=== PATIENT | female | born 1940 | race Caucasian/White ===

== ENCOUNTER 2020-02-15 13:37 | Outpatient (CLI) | payer MEDICARE, MEDICAID, SELFPAY ==
--- NOTE | 2020-02-15 13:49 | USCV_ITS ---
Magy Hebert Age: 79 Gender: F : 1940 Exam Date: 02/15/2020 14:11 Ordering Phys: Quique Dumont MD Technologist: Heath Robertson [place] [facility] [place] RT LEG PAIN AND SWELLING HISTORY: Lower extremity swelling. PROCEDURES: Venous duplex imaging was performed in only the right lower extremity. The following venous structures were evaluated: common femoral vein, profunda vein, proximal portion of the greater saphenous vein, superficial femoral vein, and the popliteal vein. In addition, the posterior tibial and peroneal trunk were evaluated. On the right side, the common femoral, superficial femoral, profunda femoral, popliteal, posterior tibial, greater saphenous veins and the peroneal trunk were identified and interrogated in the standard fashion. These veins were found to be easily compressible with spontaneous blood flow. No evidence of insufficiency or thrombus noted. FINDINGS: Normal 2-D Doppler and augmentation and compressibility throughout the lower extremity venous structures. Additional imaging through the proximal calf veins also reveals no thrombus. Limited evaluation of the greater saphenous vein is patent with no thrombus.. CONCLUSIONS No evidence of right lower extremity DVT. Sukhi Roblero MD (Electronically Signed) Final Date: 15 February 2020 16:27 S
== END 2020-02-15 13:38 | disposition home or self-care (01) ==
LOC: RAD 13:43
PROVIDERS: PCP Family Medicine; Visit Provider Family Medicine
DX: M79.604 Pain in right leg (principal); M79.89 Other specified soft tissue disorders
CPT/HCPCS: 93971

== ENCOUNTER 2020-02-20 10:45 | Outpatient (CLI) | payer MEDICARE, MEDICAID, SELFPAY ==
--- NOTE | 2020-02-20 10:59 | US_ITS ---
WS: [id number] Complete ABDOMINAL ULTRASOUND HISTORY: EDEMA COMPARISON: None available. Liver: 14.7 cm in length. Liver is normal size and echogenicity with no mass or intrahepatic dilatati on. Gallbladder: Well distended gallbladder. There is increased soft tissue in the gallbladder neck. Nons hadowing soft tissue. There is no gallbladder wall thickening. Gallbladder wall thickness: 0.2 cm. Pancreas: Normal size and echogenicity. CBD: 0.2 cm. Right kidney: 9.1 cm x 4.4 cm x 3.9 cm. Multiple renal cysts associated with the RIGHT kidney. The l argest from the superior pole measures 5.3 x 2.1 x 3.6 cm. No solid mass or obstruction. Left kidney: 9.2 cm x 4.2 cm x 3.7 cm. Multiple cortical cysts. The largest cyst from the upper pole measures 4.0 x 2.9 x 3.8 cm. No solid mass. Spleen: Normal size and echogenicity. Abdominal aorta and IVC are within normal limits. No ascites. US/US abdomen complete* [id number] IMPRESSION: 1. Increased soft tissue in the gallbladder neck without shadowing. May be slu dge or neoplasm. Consider surgical evaluation or follow-up gallbladder ultrasou nd to evaluate for change in the soft tissue. 2. No cholelithiasis. 3. Bilateral renal cysts.
== END 2020-02-20 10:46 | disposition home or self-care (01) ==
LOC: US 10:55
PROVIDERS: PCP Family Medicine; Visit Provider Family Medicine
DX: R60.0 Localized edema (principal); N28.1 Cyst of kidney, acquired
CPT/HCPCS: 76700

== ENCOUNTER → 2020-03-31 14:29 | Outpatient (BNVA) | payer MEDICARE, MEDICAID, SELFPAY | PROVIDERS: PCP Family Medicine; Visit Provider Internal Medicine Cardiovascular Disease | DX: R06.02 Shortness of breath (principal); I50.33 Acute on chronic diastolic (congestive) heart failure; Z79.01 Long term (current) use of anticoagulants; N18.9 Chronic kidney disease, unspecified; I25.10 Atherosclerotic heart disease of native coronary artery without angina pectoris; E78.2 Mixed hyperlipidemia | CPT/HCPCS: 80048; 83880; 84443; 85025 ==

== ENCOUNTER → 2020-04-15 09:20 | Outpatient (BNVA) | payer MEDICARE, MEDICAID, SELFPAY | PROVIDERS: PCP Family Medicine; Visit Provider Internal Medicine Cardiovascular Disease | DX: R06.02 Shortness of breath (principal); I25.10 Atherosclerotic heart disease of native coronary artery without angina pectoris | CPT/HCPCS: 80048; 83880 ==

== ENCOUNTER 2020-05-02 09:34 | Outpatient (CLI) | payer MEDICARE, MEDICAID, SELFPAY ==
[2020-05-02 10:16] LABS: Basophils % 0.7 %; Eosinophils # 0.1 10^3/uL (0.0-0.8); Eosinophils % 0.9 %; Hematocrit 43.3 % (37.0-47.0); Hemoglobin 13.7 g/dL (11.5-15.3); Lymphocytes # 1.8 10^3/uL (0.8-4.8); Lymphocytes % 32.1 %; Mean Corpuscular HGB Conc 31.6 g/dL (30.0-36.0); Mean Corpuscular Hemoglobin 29.5 pg (28.0-34.0); Mean Corpuscular Volume 93.1 fL (81-99); Mean Platelet Volume 9.9 fL (7.4-10.4); Monocytes # 0.4 10^3/uL (0.2-0.9); Monocytes % 6.7 %; Neutrophils # 3.29 10^3/uL (1.8-7.7); Neutrophils % 59.2 %; Nucleated Red Blood Cells % 0 %; Platelet Count 154 10^3/cmm (130-400); Red Blood Count 4.65 10^6/uL (4.1-5.3); Red Cell Distribution Width 14.9 % (12.1-15.1); White Blood Count 5.6 10^3/uL (4.0-10.0)
[2020-05-02 10:36] LABS: INR 1.29 (0.8-1.2)
[2020-05-02 13:41] LABS: Anion Gap 16.5 (5-19); Blood Urea Nitrogen 41 mg/dL (8-23); Carbon Dioxide 27 mmol/L (22-29); Chloride 102 mmol/L (98-107); Glucose 105 mg/dL (65-115); Osmolality Calculated 302 mOsm/kg (285-295); Potassium 4.5 mmol/L (3.5-5.1); Sodium 141 mmol/L (136-145)
== END 2020-05-02 09:35 | disposition home or self-care (01) ==
PROVIDERS: PCP Family Medicine; Visit Provider Internal Medicine Cardiovascular Disease
DX: Z95.0 Presence of cardiac pacemaker (principal); R06.02 Shortness of breath; E78.2 Mixed hyperlipidemia; G62.9 Polyneuropathy, unspecified; I25.10 Atherosclerotic heart disease of native coronary artery without angina pectoris; Z01.812 Encounter for preprocedural laboratory examination
CPT/HCPCS: 36415; 80048; 85025; 85610; 87635

== ENCOUNTER 2020-05-05 09:23 | Observation (INO) | payer MEDICARE, MEDICAID, SELFPAY ==
[2020-05-02 12:21] VITALS: BMI 24.6
[2020-05-05] VITALS (10 sets, daily range): BP systolic 116–143; BP diastolic 64–70; PULSE 66–71; RESP 16–18; TEMP 36.5–36.9; O2SAT 94–100
--- NOTE | 2020-05-05 07:23 | P.HP_ITS ---
Providers/Chief Complaint Admitting Physician: AANHY jaime Primary Care Provider: Quique Dumont Jr, MD Chief Complaint: pacemaker generator change History of Present Illness Magy Hebert is a 79 year old female with a history of hypertension, atrial fibrillation and dyslipidemia, had a permanent pacer implantation for symptomatic bradycardia. She was found to be in BIA during routine pacemaker follow-up evaluation. She is here for an elective pacemaker revision. Review of Systems Narrative: CONSTITUTIONAL: No fever or chills. EYES: No blurring of vision or other visual disturbances lately. ENT: No hoarseness of voice, auditory disturbances or sore throat. CARDIOVASCULAR: As mentioned above. RESPIRATORY: No significant cough. GASTROINTESTINAL: No hematemesis or melena. GENITOURINARY: No dysuria or hematuria. INTEGUMENTARY: No skin rashes or history of skin cancer. NEURO: No transient ischemic attacks or amaurosis. PSYCHIATRIC: No history of psychosis or major depression. HEMATOLOGIC: No bleeding disorders or significant anemia. ENDOCRINE: No history of polyuria or polydipsia. MUSCULOSKELETAL: No recent joint pain or swelling. ALLERGY/IMMUNOLOGY: As mentioned above. Medications/Allergies Home Medications Medication Instructions Recorded Confirmed Last Taken Type alprazolam 0.25 mg tablet 0.25 mg PO TID PRN 09/25/19 05/05/20 Unknown History carvedilol 25 mg tablet 25 mg PO BID 09/25/19 05/05/20 05/05/20 04:30 History diltiazem HCl 240 mg capsule,24 240 mg PO DAILY 09/25/19 05/05/20 05/05/20 04:30 History hr,extended release gabapentin 300 mg capsule 300 mg PO DAILY 09/25/19 05/05/20 05/04/20 12:00 History isosorbide mononitrate 60 mg 60 mg PO DAILY 09/25/19 05/05/20 05/04/20 12:00 History tablet,extended release 24 hr lovastatin 40 mg tablet 80 mg PO DAILY tab 09/25/19 05/05/20 05/04/20 20:00 History multivitamin 1 tab PO DAILY 09/25/19 05/05/20 05/04/20 12:00 History nitroglycerin 0.4 mg sublingual 0.4 mg SUBLINGUAL Q5M PRN 09/25/19 05/05/20 Unknown History tablet potassium chloride 20 mEq 20 meq PO DAILY 09/25/19 05/05/20 05/04/20 08:00 History tablet,extended release quetiapine 25 mg tablet 25 mg PO DAILY 09/25/19 05/05/20 05/04/20 20:00 History tramadol 50 mg tablet 50 mg PO Q6H PRN 09/25/19 05/05/20 05/05/20 04:30 History warfarin 5 mg tablet 5 mg PO DAILY 09/25/19 05/05/20 04/29/20 12:00 History lisinopril 20 mg tablet 20 mg PO BID tab 03/31/20 05/05/20 05/05/20 04:30 History furosemide 40 mg tablet 40 mg PO DAILY #90 tab 04/01/20 05/05/20 05/04/20 08:00 Rx Allergies Allergy/AdvReac Type Severity Reaction Status Date / Time hydrocodone Allergy Unknown unknown Verified 05/05/20 06:47 Penicillins Allergy Unknown unknown Verified 05/05/20 06:47 shellfish derived Allergy Unknown unknown Verified 05/05/20 06:47 PFSH Acute PFSH: Medical History (Updated 05/05/20 @ 07:25 by Gaviota Jaime MD) Atrial fibrillation CAD (coronary artery disease) Hyperlipidemia Hypothyroid Pacemaker Peripheral neuropathy SOB (shortness of breath) Surgical History H/O: hysterectomy Family History Other CAD (coronary artery disease) Hyperlipidemia Hypertension Social History Smoking and tobacco status: never smoked Alcohol intake: never Vitals/I&O/Wt Last Vital Signs Temp 98.4 F 05/05/20 06:20 Pulse 66 05/05/20 06:20 Resp 16 05/05/20 06:20 BP 143/66 05/05/20 06:20 Pulse Ox 100 05/05/20 06:20 Physical Exam Narrative: EXAM NARRATIVE: GENERAL: The patient is alert and oriented times three. Not in any acute distress. HEENT: No significant pallor, icterus or lymphadenopathy. The pupils are symmetrical. Oral cavity: There are no mucous membrane lesions. Funduscopic examination: The disk margins appear to be sharp with no exudates or hemorrhages. NECK: Trachea appears to be central. No masses noted. No JVD or thyromegaly appreciated. No carotid bruit. RESPIRATORY: Chest is symmetrical. No intercostals muscle retraction or any accessory muscle activation. There is no chest wall tenderness. Breath sounds are heard bilaterally. No rales or rhonchi heard. No evidence of any consolidati on. BREASTS: Deferred. HEART: The heart sounds are normal. No S3 or S4. Short systolic murmur the left sternal border. No diastolic murmurs. ABDOMEN: No vessel pulsations or distention. No tenderness. No organomegaly appreciated. No abdominal bruit. Bowel sounds are normally heard. : Deferred. RECTAL: Deferred. LYMPHATIC: No lymphadenopathy noted in the neck or groin. EXTREMITIES: No edema or cyanosis MUSCULOSKELETAL: No acute joint deformities or swelling SKIN: There are no significant scars or skin rash noted. NEUROPSYCHIATRIC: The patient is alert and oriented x3. Very hard of hearing appears to be in a good mood. No tremors or rigidity noted. A&P Assessment and plan (1) Pacemaker at end of battery life: Patient requires a pacemaker revision. This was discussed with the patient and family in detail which they understood well and consented to proceed. The risk of bleeding, hematoma, vascular injury, , infection, and other concomitant complications were explained in detail. The patient and family understood this well and consented to proceed. Status: Acute (2) Hyperlipidemia: May continue on the current medications. Status: Acute Qualifiers: Hyperlipidemia type: mixed hyperlipidemia Qualified Code(s): E78.2 - Mixed hyperlipidemia (3) Atrial fibrillation: Patient is on long-term oral anticoagulation. on a.c. the Coumadin was held. Will be restarting it tomorrow. Status: Acute Qualifiers: Atrial fibrillation type: longstanding persistent Qualified Code(s): I48.11 - Longstanding persistent atrial fibrillation (4) CAD (coronary artery disease): Since the patient has no specific symptoms of coronary insufficiency, may not require any further investigations at this time. Advised to continue on the current medications. Importance of compliance to diet and exercise were discussed which the patient seems to understand well. Status: Acute Qualifiers: Coronary Disease-Associated Artery/Lesion type: [place] artery [place] vs. transplanted heart: [place] heart Associated angina: without angina Qualified Code(s): I25.10 - Atherosclerotic heart disease of [place] coronary artery without angina pectoris Additional A&P Information Patient will be admitted to the hospital after pacemaker for IV antibiotics. Attestations Medical Necessity Statement*: Patient requires an overnight stay for IV antibiotic Coding Level of Care Code Acute Technical Translator for g Fwd Diagnoses Pacemaker at end of battery life Z45.010 Hyperlipidemia E78.2 Hyperlipidemia type: mixed hyperlipidemia Atrial fibrillation I48.11 Atrial fibrillation type: longstanding persistent CAD (coronary artery disease) I25.10 Coronary Disease-Associated Artery/Lesion type: [place] artery [place] vs. transplanted heart: [place] heart Associated angina: without angina
--- NOTE | 2020-05-05 07:27 | W.PM.OPSUD ---
Surgery/Procedure H&P Update DATE OF PROCEDURE: May 05, 2020 DATE H&P PERFORMED: 05/05/20 PREOP DIAGNOSIS: Pacemaker BIA PRIMARY INDICATION FOR PROCEDURE: Pacemaker BIA PLANNED PROCEDURE: Operation Date: 05/05/20 07:00 Proposed Procedures p Pacemaker Generator Change 30092 Z45.010(Not Applicable) - Gaviota Jimenez MD PATIENT REASSESSED PRIOR TO SEDATION, WITH NO CHANGE NOTED: Yes PHYSICAL EXAM: alert, oriented x 3 and regular rate & rhythm AIRWAY EVAL/ANESTHESIA PLAN: normal airway, ASA III, Monitored Anesthesia, Local Anesthesia, Risks, benefits & alternatives of sedation and/or procedure discussed and Patient agrees to continue as planned
--- NOTE | 2020-05-05 08:27 | P.OP_ITS ---
Operative Report Date of procedure: May 05, 2020 Pre-op Diagnosis: Pacemaker BIA Procedure: PROCEDURE: PACEMAKER REVISION PREOPERATIVE DIAGNOSIS: Pacemaker elective replacement indication. POSTOPERATIVE DIAGNOSIS: Pacemaker elective replacement indication. ESTIMATED BLOOD LOSS: None COMPLICATIONS: None. BRIEF HISTORY: The patient is 79-year-old white female who had a permanent pacemaker implantation for atrial fibrillation/symptomatic bradycardia. The patient was found to have elective replacement indication, during routine office followup evaluation. For further management of patient's condition for the [symptomatic bradycardia], the patient required a pacemaker revision. The procedure was explained to the patient and her family in detail with the risks and benefits. The risks of bleeding, hematoma, vascular injury, infection and other concomitant complications were explained in detail, which the patient understood well and consented to proceed. PROCEDURES PERFORMED: 1. Explantation of the old pacemaker generator. 2. Implantation of the new generator. The patient brought to the Cardiac Product Manufacturing Professional. The left side of the neck and the subclavian area were cleaned and draped in a sterile fashion. 1% Xylocaine was used for local anesthetic agent. A 2 inch long incision was made just below the previous pacemaker scar. By sharp and blunt dissection, the pacemaker pocket was accessed. The old generator was delivered from the pocket. The generator was detached from the lead. The new Medtronic generator was attached to the lead. The pacemaker pocket was copiously irrigated with vancomycin solution. Complete hemostasis was achieved. The generator was placed in antibiotic pouch TYRX. Sponge counts were confirmed. The pacemaker pocket was closed in layers. Skin was approximated using 4-0 Vicryl. EXPLANTED DEVICE: Pacemaker Generator: Brand: [Sensia]SR. Model number: SR01. Serial number: [id number]. Date of implant: 08/02/2014 IMPLANTED DEVICES: Ventricular Lead: Date of implantation: 08/02/2014 Model number: [id number] Serial number: [id number] Make: [Medtronic]. Implanted Generator: Date of implantation : 05/05/2020 Brand: Azre XT SR MRI SureScan. Model number: [id number] Serial number: [id number] Make: [Medtronic] TYRX Pouch REF CMRM 6122 Lot# [id number] Stimulation Threshold: The ventricular sensing was 6.0 millivolts. Lead impedance was 418 and the pacing threshold was .75 volts at 0.5 milliseconds. The pacemaker was set for VVIR mode with an upper rate of 120 and a lower rate of [60]. A pressure dressing was applied over the pacemaker site. The patient was transferred back to medical floor in stable condition. Sponge counts were correct.
[2020-05-05] MEDS: quetiapine 25 mg Tablet PO (10:04)
[2020-05-05] MEDS: carvedilol 25 mg Tablet PO ×2 (10:04→17:31)
[2020-05-05] MEDS: FUROsemide 40 mg Tablet PO (10:04)
[2020-05-05] MEDS: gabapentin 300 mg Capsule PO (10:04)
[2020-05-05] MEDS: lisinopril 20 mg Tablet PO ×2 (10:04→17:31)
[2020-05-05] MEDS: isosorbide mononitrate ER 60 mg Tablet PO (10:04)
[2020-05-05] MEDS: potassium chloride ER 20 mEq Tablet PO (10:04)
[2020-05-05] MEDS: dilTIAZem ER (24HR) 240 mg Capsule PO (10:04)
[2020-05-05] MEDS: multivitamin therapeutic Tablet 1 TAB PO (10:04)
[2020-05-05] MEDS: atorvastatin 40 mg Tablet 20 MG PO (10:05)
[2020-05-05] MEDS: vancomycin 1,000 MG in sodium chloride 0.9% 250 ML 250 MG IV (21:15)
[2020-05-05] MEDS: sodium chloride 0.9% 1,000 ML 75 ML IV (21:19)
[2020-05-05] MEDS: TRAMadol 50 mg Tablet PO (23:51)
[2020-05-06] VITALS: BP 134/68; PULSE 69; RESP 20; TEMP 37.1; O2SAT 93
[2020-05-06 03:42] VITALS: BP 133/69; PULSE 69; RESP 24; TEMP 37.1; O2SAT 92
[2020-05-06 06:00] VITALS: PULSE 69
--- NOTE | 2020-05-06 06:00 | ECG_ITS ---
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 Measurements Intervals [place] Rate: 69 P: [place]: QRS: 130 QRSD: 191 T: -30 QT: 466 QTc: 502 Interpretive Statements ELECTRONIC VENTRICULAR PACEMAKER ABNORMAL RHYTHM ECG Compared to ECG 03/13/2016 15:05:13 Left-axis deviation no longer present Electronically Signed On 05-06-2020 21:43:10 EXECUTIVE MARKETING ASSISTANT by Gaviota Jimenez M.D. [email or web address] children's hospital medical [id number]
[2020-05-06] MEDS: dilTIAZem ER (24HR) 240 mg Capsule PO (08:31)
[2020-05-06] MEDS: isosorbide mononitrate ER 60 mg Tablet PO (08:31)
[2020-05-06] MEDS: lisinopril 20 mg Tablet PO (08:32)
[2020-05-06] MEDS: atorvastatin 40 mg Tablet 20 MG PO (08:32)
[2020-05-06] MEDS: gabapentin 300 mg Capsule PO (08:32)
[2020-05-06] MEDS: FUROsemide 40 mg Tablet PO (08:32)
[2020-05-06] MEDS: carvedilol 25 mg Tablet PO (08:32)
[2020-05-06] MEDS: quetiapine 25 mg Tablet PO (08:32)
[2020-05-06] MEDS: potassium chloride ER 20 mEq Tablet PO (08:32)
[2020-05-06] MEDS: multivitamin therapeutic Tablet 1 TAB PO (08:32)
[2020-05-06] MEDS: warfarin 5 mg Tablet PO (08:39)
[2020-05-06 08:40] VITALS: BP 156/66; PULSE 69; RESP 18; TEMP 36.4; O2SAT 97
--- NOTE | 2020-05-06 09:07 | PC.NURSE ---
assisted patient with getting dressed, removed iv and notified care nurse LYNN Pedersen
[2020-05-06 10:31] VITALS: BP 156/66; PULSE 69; RESP 18; TEMP 36.4; O2SAT 97
== END 2020-05-06 09:58 | disposition home or self-care (01) ==
LOC: MEDSURG 05-06 05:20
PROVIDERS: Admitting Provider Internal Medicine Cardiovascular Disease; PCP Family Medicine; Visit Provider Internal Medicine Cardiovascular Disease
DX: Z45.010 Encounter for checking and testing of cardiac pacemaker pulse generator [battery] (principal); E78.2 Mixed hyperlipidemia; I48.11 Longstanding persistent atrial fibrillation; I25.10 Atherosclerotic heart disease of native coronary artery without angina pectoris; Z79.01 Long term (current) use of anticoagulants; E78.5 Hyperlipidemia, unspecified; G62.9 Polyneuropathy, unspecified
CPT/HCPCS: 12345; 33213; 36415; 93005; 96361; 96365; 96367; 97110; 97166; 97535; C1769; C1786; G0378; J2250; J3010; J3370; J7030; J7050

== ENCOUNTER → 2020-07-02 12:00 | Outpatient (BNVA) | payer MEDICARE, MEDICAID, SELFPAY | PROVIDERS: PCP Family Medicine; Visit Provider Internal Medicine Cardiovascular Disease | DX: R06.02 Shortness of breath (principal); I50.33 Acute on chronic diastolic (congestive) heart failure; Z79.01 Long term (current) use of anticoagulants; N18.9 Chronic kidney disease, unspecified; I25.10 Atherosclerotic heart disease of native coronary artery without angina pectoris; E78.2 Mixed hyperlipidemia; I50.9 Heart failure, unspecified | CPT/HCPCS: 80048; 83880 ==

== ENCOUNTER 2020-07-23 07:41 | Outpatient (CLI) | payer MEDICARE, MEDICAID, SELFPAY ==
--- NOTE | 2020-07-23 08:00 | USCV_ITS ---
Hebert Magy Age: 80 Gender: F : 1940 Exam Date: 07/23/2020 08:03 Ordering Phys: Gaviota Jimenez MD ([email or web address]) Technologist: Ifeoma Cee Exam Location: [facility] – [place] Indication: HEART FAILURE BP: 113 / 67 HR: 69 Rhythm: Paced Technical Quality: Adequate MEASUREMENTS (Male / Female) Normal Values 2D ECHO LV Diastolic Diameter PLAX 4.3 cm 4.2 - 5.9 / 3.9 - 5.3 cm LV Systolic Diameter PLAX 3.9 cm IVS Diastolic Thickness 0.8 cm 0.6 - 1.0 / 0.6 - 0.9 cm IVS Systolic Thickness 2.3 cm LVPW Diastolic Thickness 1.3 cm 0.6 - 1.0 / 0.6 - 0.9 cm LVPW Systolic Thickness 1.5 cm LVOT Diameter 2.0 cm LV Ejection Fraction 2D Teich 3.2 % LV Ejection Fraction MOD 2C 38.9 % LV Ejection Fraction 2C AL 38.6 % LA Diameter 5.8 cm LA Width 4.8 cm LA Height 7.6 cm RA Width 5.1 cm RA Height 7.1 cm Aorta at Sinotubular Diameter 2.2 cm M-MODE LV Diastolic Diameter MM 5.4 cm 4.2 - 5.9 / 3.9 - 5.3 cm LV Systolic Diameter MM 4.3 cm LV Ejection Fraction MM Teich 40.7 % IVS Diastolic Thickness MM 0.9 cm 0.6 - 1.0 / 0.6 - 0.9 cm IVS Systolic Thickness MM 1.4 cm LVPW Diastolic Thickness MM 1.4 cm 0.6 - 1.0 / 0.6 - 0.9 cm LVPW Systolic Thickness MM 2.1 cm RV Diastolic Diameter MM 2.3 cm Aortic Annulus Diameter 2.9 cm LA Ao Ratio MM 2.4 MV E Point Septal Separation 0.8 cm DOPPLER AV Peak Velocity 131.0 cm/s LVOT Peak Velocity 67.0 cm/s AV Area Cont Eq vti 1.9 cm squared AV Area Cont Eq pk 1.6 cm squared MV Area PHT 3.9 cm squared Mitral E to A Ratio 19.1 MV E' Velocity 85.3 cm/s Mitral E to LV E' Septal Ratio 19.6 TR Peak Velocity 240.4 cm/s TR Peak Gradient 23.1 mmHg TR Mean Velocity 149.8 cm/s TR Mean Gradient 11.1 mmHg TR Velocity Time Integral 70.1 cm TV Peak E Velocity 87.0 cm/s Right Atrial Pressure 15.0 mmHg Pulmonary Artery Systolic Pressu 38.1 mmHg PV Peak Velocity 41.0 cm/s RV Acceleration Time 0.1 s RV Ejection Time 0.3 s RV AcT/ET 0.4 FINDINGS Left Ventricle Normal LV size with slightly diminished ejection fraction of 50%.abnormal septal motion consistent with conduction abnormality. Grade III/IV diastolic dysfunction (restrictive filling pattern), severely elevated filling pressures. Right Ventricle Normal right ventricular size and systolic function. Right Atrium Moderately increased right atrial size. Left Atrium Moderately increased left atrial size. Mitral Valve Moderate mitral valve regurgitation. Aortic Valve Thickened aortic valve. Mild to moderate aortic valve regurgitation. Tricuspid Valve Zwwwtnye-oj-aaepel tricuspid valve regurgitation. Pulmonic Valve Structurally normal pulmonic valve. Pericardium Small pericardial effusion. Aorta Normal aortic annulus size. Mild diffuse plaques in the ascending aorta CONCLUSIONS Normal LV size with slightly diminished ejection fraction of 50%. Abnormal septal motion consistent with conduction abnormality. Grade III/IV diastolic dysfunction (restrictive filling pattern), severely elevated filling pressures. Moderate biatrial enlargement. Ndhyjgqv-vy-oaaukd tricuspid valve regurgitation. Moderate mitral valve regurgitation. Thickened aortic valve. Mild to moderate aortic valve regurgitation. Severe pulmonary artery peak systolic pressure of 38 mmHg Small pericardial effusion. Compared to the study from 03/17/2014, there is slight decline in the LV ejection fraction ; increase in the size of the atria and worsening of the tricuspid regurgitation. The PA pressure calculation could be misleading because of the poor Doppler signals Dr Gavitoa Jimenez MD [facility] (Electronically Signed) Final Date: 23 July 2020 18:47 S
== END 2020-07-23 07:42 | disposition home or self-care (01) ==
PROVIDERS: PCP Family Medicine; Visit Provider Internal Medicine Cardiovascular Disease
DX: I50.9 Heart failure, unspecified (principal); I08.3 Combined rheumatic disorders of mitral, aortic and tricuspid valves; I31.3 Pericardial effusion (noninflammatory)
CPT/HCPCS: 93306

== ENCOUNTER 2020-08-19 06:41 | Outpatient (CLI) | payer MEDICARE, MEDICAID, SELFPAY ==
[2020-08-19 06:47] VITALS: BMI 26.4
--- NOTE | 2020-08-19 06:49 | ECG_ITS ---
[facility] Test Date: 2020-08-19 Pat Name: Magy Hebert Department: Room: Gender: Female Report Programmer: : 1940 Requested By: Gaviota Jimenez Order Number: [id number] Tod MD: Gaviota Jimenez M.D. Interpretive Statements NAME OF STUDY: LEXISCAN SESTAMIBI STRESS TEST INDICATION: Reduced Ejection Fraction PROCEDURE: At the baseline, the EKG revealed 100% V paced rhythm. The baseline blood pressure was 131/75 mm Hg with a heart rate of 70 beats/min. Lexiscan was infused over a period of 20 seconds. A total of 0.4 milligrams of Lexiscan was infused. The stress phase was continued for a total of 5 minutes. Heart rate at the end of the stress phase was 70 with a blood pressure 118/58. The EKG at the peak infusion revealed no significant changes. Sestamibi was injected 20 seconds after the Lexiscan infusion. Blood pressure at the end of the recovery phase was 113/58 with a heart rate of 70 per minute. CONCLUSION: 1. No significant EKG changes with the LexiScan infusion 2. No LexiScan induced chest pain or cardiac arrhythmia 3. Normal blood pressure and heart rate response 4. Sestamibi/sestamibi perfusion scan pending; see separate report. Electronically Signed On 08-27-2020 18:15:13 CDT by Gaviota Jimenez M.D. [id number]
--- NOTE | 2020-08-19 06:49 | NMCV_ITS ---
NM sae perf SPECT r/s* [id number] Magy Hebert Age: 80 Gender: F : 1940 Exam Date: 08/19/2020 08:28 Ordering Phys: Gaviota Jimenez MD ([email or web address]) Technologist: ENEIDA Moyer Exam Location: [facility] Indications: SHORTNESS OF BREATH STRESS TEST Please see separate stress test report in [facility] for full findings IMAGE PROTOCOL Rest/Stress 1 Lexiscan Day Radiopharmaceutical Dose (mCi) Administration Site Administered by Rest: Tc-99m 10.8 IV ENEIDA Mendoza Sestamibi Stress:Tc-99m 32.5 IV ENEIDA Moyer Sestamilele Rest: 19-Aug-2020 60 Discovery 630 Stress: 19-Aug-2020 30 Discovery 630 0.4mg Lexiscan. Supine position only as patient was unable to lay prone. SPECT RESULTS Technical Quality: Excellent Raw Data Analysis: Normal Image Corrections: No attenuation or motion correction applied Summed Stress Score: 11 Summed Rest Score: 12 Summed Difference Score: 0 PERFUSION FINDINGS There is a large sized, fixed perfusion defect in the apical, apical lateral and apical inferior dwyer. 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 FUNCTIONAL RESULTS (calculated via Gated SPECT) Stress Image LV EF (%): 71 Stress EDV (mL):59 TID: 0.85 Stress ESV (mL):17 FUNCTIONAL FINDINGS: LV systolic function is normal IMPRESSIONS 1. Abnormal myocardial perfusion imaging. There is a large in size, fixed perfusion defect in the apical, apical lateral and apical inferior wall demonstrating prior infarct without evidence of ischemia. 2. LV systolic function is normal Amaury Lopez MD (Electronically Signed) Final Date: 24 Aug 2020 18:13 S
--- NOTE | 2020-08-19 08:52 | SUR.PREOP ---
Patient reports no pain or discomfort prior to the start of the procedure.
[2020-08-19] MEDS: regadenoson 0.4 Mg/5 ml Syringe IVP (09:01)
[2020-08-19] MEDS: aminophylline 25 mg/mL SDV 10 mL IVP (09:15)
[2020-08-19 09:22] VITALS: BP 119/70; PULSE 70
== END 2020-08-19 06:42 | disposition home or self-care (01) ==
LOC: CDL 06:44
PROVIDERS: PCP Family Medicine; Visit Provider Internal Medicine Cardiovascular Disease
DX: R06.02 Shortness of breath (principal); I50.32 Chronic diastolic (congestive) heart failure
CPT/HCPCS: 78452; 93017; A9500; J0280; J2785

== ENCOUNTER 2020-09-21 04:11 | Emergency (ER) | payer MEDICARE, MEDICAID, SELFPAY ==
[2020-09-21 04:13] VITALS: BP 137/81; PULSE 84; RESP 24; TEMP 36.9; O2SAT 99; BMI 26.0
--- NOTE | 2020-09-21 04:53 | CTR_ITS ---
PROCEDURE INFORMATION: Exam: CT Abdomen And Pelvis With Contrast Exam date and time: 09/21/2020 6:37 AM Age: 80 years old Clinical indication: Abdominal pain; Prior surgery; Surgery type: Gb, hysto TECHNIQUE: Imaging protocol: Computed tomography of the abdomen and pelvis with contrast. Radiation optimization: All CT scans at this facility use at least one of these dose optimization techniques: automated exposure control; mA and/or kV adjustment per patient size (includes targeted exams where dose is matched to clinical indication); or iterative reconstruction. Contrast material: VISI 320; Contrast volume: 95 ml; Contrast route: INTRAVENOUS (IV); COMPARISON: CT Abdomen/Pelvis Renal [id number] 11/05/2013 4:01 PM RADIATION DOSE METRICS: Total DLP (mGy-cm): 1198.95 FINDINGS: Pleural spaces: There is trace bilateral pleural effusions, left greater than right. Heart: The heart is ixnq-af-njvzllfhtn enlarged. Coronary atherosclerotic calcifications seen. A small pericardial effusion is present. Pacemaker leads noted. Mediastinal space: A small hiatal hernia is present. Liver: Normal. No mass. Gallbladder and bile ducts: There is mild intra and extrahepatic biliary ductal dilatation. Pancreas: Normal. No ductal dilation. Spleen: Normal. No splenomegaly. Adrenal glands: Normal. No mass. Kidneys and ureters: Symmetric enhancement of the kidneys without evidence of mass lesion. Bilateral renal cysts noted, the largest measuring 4.8 cm in the right upper kidney and 3.9 cm in the left lower kidney. No hydronephrosis or nephrolithiasis. Stomach and bowel: There is diverticulosis without evidence of diverticulitis. Appendix: No evidence of appendicitis. Intraperitoneal space: Unremarkable. No free air. No significant fluid collection. Vasculature: Mild diffuse atherosclerotic disease is present. Lymph nodes: Unremarkable. No enlarged lymph nodes. Urinary bladder: Unremarkable as visualized. Reproductive: The uterus is surgically absent. Bones/joints: Degenerative changes of the spine seen. Soft tissues: Small fat containing inguinal hernias are seen bilaterally. CT/CT abdomen pelvis w con* [id number] IMPRESSION: 1. No clear evidence of acute intra-abdominal or intrapelvic pathology. 2. Limited evaluation of the upper abdomen due to motion artifact, demonstrates a mildly distended gallbladder without clear evidence of inflammatory changes, and mild intra and extrahepatic biliary ductal dilatation. If there is clinical concern, further evaluation with abdomen ultrasound and/or MRCP should be considered. 3. Trace bilateral pleural effusions. 4. Tdxn-fq-qpwvjzcqbp enlarged heart with a small pericardial effusion. COMMENTS: Consistent with the [employer]'s Incidental Findings Committee white paper (J Am Earlene Radiol 2018): Any incidental renal lesion less than 1 cm or classified as too small to characterize, or any incidental cystic renal lesion characterized as simple-appearing, is likely benign. No follow-up imaging is recommended for these lesions per consensus recommendations based on imaging criteria. Radiation Dose CTDIVOL = (mGy): DLP = 1198.95 (mGy-cm)
--- NOTE | 2020-09-21 04:53 | XRR_ITS ---
PROCEDURE INFORMATION: Exam: XR Chest Exam date and time: 09/21/2020 6:37 AM Age: 80 years old Clinical indication: Pain; Chest pressure; Prior surgery; Surgery type: Pacer; Additional info: Cp TECHNIQUE: Imaging protocol: XR of the chest. Views: 1 view. COMPARISON: CR Chest 1 [place] [id number] 03/13/2016 2:36 PM FINDINGS: Tubes, catheters and devices: A cardiac pacing device is again seen projecting over the right chest. Lungs: There is mildly increased interstitial markings, which may be accentuated by low lung volumes or represent mild pulmonary congestion. No consolidation identified. Pleural spaces: Unremarkable. No pleural effusion. No pneumothorax. Heart/Mediastinum: Stable cardiomediastinal silhouette. Vasculature: Aortic arch atherosclerotic calcifications seen. Bones/joints: Degenerative changes of the spine seen. XR/XR chest 1V portable [id number] IMPRESSION: Imaging findings suggestive of mild pulmonary congestion.
--- NOTE | 2020-09-21 04:53 | CTR_ITS ---
PROCEDURE INFORMATION: Exam: CT Head Without Contrast Exam date and time: 09/21/2020 4:56 AM Age: 80 years old Clinical indication: Dizziness; Additional info: Dizzy TECHNIQUE: Imaging protocol: Computed tomography of the head without contrast. Radiation optimization: All CT scans at this facility use at least one of these dose optimization techniques: automated exposure control; mA and/or kV adjustment per patient size (includes targeted exams where dose is matched to clinical indication); or iterative reconstruction. COMPARISON: CT head wo con* [id number] 03/13/2016 2:48 PM RADIATION DOSE METRICS: Total DLP (mGy-cm): 893.4 FINDINGS: Brain: No acute intracranial hemorrhage or mass effect. There is mild decreased attenuation in the periventricular white matter, likely from microvascular disease. Small apparent old lacunar infarcts in the right basal ganglia region. No definite acute infarct by CT. MRI could be more sensitive/specific for detection, and also for distinguishing between old and subacute infarcts, as clinically directed. Cerebral ventricles: Ventricle size is normal for age. Paranasal sinuses: Included paranasal sinuses are essentially clear. Mastoid air cells: No significant acute finding. Vasculature: Vascular calcifications in the internal carotid arteries. Bones/joints: No definite acute skull fracture. CT/CT head wo con* [id number] IMPRESSION: 1. No acute intracranial hemorrhage or mass effect. 2. 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 3. No definite acute infarct by CT, see above discussion. 4. Other findings discussed above. Radiation Dose CTDIVOL = (mGy): DLP = 893.4 (mGy-cm)
[2020-09-21] MEDS: sodium chloride 0.9% 1,000 ML 999 ML IV (05:01)
[2020-09-21 05:03] VITALS: BP 149/71; PULSE 76; RESP 25; O2SAT 99
[2020-09-21 05:24] LABS: Basophils % 0.8 %; Eosinophils # 0.1 10^3/uL (0.0-0.8); Eosinophils % 1.5 %; Hematocrit 41.5 % (37.0-47.0); Hemoglobin 13.1 g/dL (11.5-15.3); Lymphocytes # 1.3 10^3/uL (0.8-4.8); Lymphocytes % 27.6 %; Mean Corpuscular HGB Conc 31.6 g/dL (30.0-36.0); Mean Corpuscular Hemoglobin 31.3 pg (28.0-34.0); Mean Platelet Volume 9.8 fL (7.4-10.4); Monocytes # 0.3 10^3/uL (0.2-0.9); Monocytes % 6.8 %; Neutrophils # 3.03 10^3/uL (1.8-7.7); Neutrophils % 62.9 %; Nucleated Red Blood Cells % 0 %; Platelet Count 145 10^3/cmm (130-400); Red Blood Count 4.19 10^6/uL (4.1-5.3); Red Cell Distribution Width 13.7 % (12.1-15.1); White Blood Count 4.8 10^3/uL (4.0-10.0)
[2020-09-21 05:47] LABS: Lactate (Lactic Acid level) 1.6 mmol/L (0.5-2.2); Troponin(5th) Baseline 37 ng/L (0-10)
[2020-09-21 05:54] LABS: Alanine Aminotransferase 19 U/L (0-33); Albumin Level 3.9 g/dL (3.5-5.2); Alkaline Phosphatase 103 IU/L (35-105); Anion Gap 15.6 (5-19); Aspartate Amino Transferase 28 U/L (0-32); Blood Urea Nitrogen 27 mg/dL (8-23); C Reactive Protein 2.1 mg/L (0.0-4.9); Calcium 8.1 mg/dL (8.5-10.5); Carbon Dioxide 24 mmol/L (22-29); Chloride 107 mmol/L (98-107); Creatine Phosphokinase 68 U/L (26-192); Glucose 104 mg/dL (65-115); Lipase 29 U/L (13-60); Magnesium 1.9 mg/dL (1.7-2.3); NT Pro B Type Natriuretic Pept 3071 pg/mL (0-450); Osmolality Calculated 301 mOsm/kg (285-295); Potassium 3.6 mmol/L (3.5-5.1); Sodium 143 mmol/L (136-145); Total Bilirubin 0.5 mg/dL (0.15-1.2); Total Protein 5.9 g/dL (6.6-8.7)
[2020-09-21 05:57] LABS: INR 2.84 (0.8-1.2)
[2020-09-21 06:11] VITALS: BP 149/69; PULSE 71; RESP 14; O2SAT 97
--- NOTE | 2020-09-21 06:18 | ED_ITS ---
Documented by User: Mitchel Sekou DO Jabari 09/22/20 01:55 HPI - Dizziness General: Chief Complaint: Dizziness Stated Complaint: dizzy,fatigue,constipated Time Seen by Provider: 09/21/20 04:18 History of Present Illness: HPI Narrative: 80-year-old female presents with. Her last known well was sometime before 10 PM. Her dizziness has improved to some degree here. She was evidently so dizzy at that point that she could not sit up. She also has a complaint of chest discomfort last night which is resolved now. She complains of belly discomfort that has been ongoing and worsening for the past couple of days. She states her bowels need to move. He denies any fever or vomiting. MD elicited complaint: dizziness, lightheadedness and difficulty walking Pertinent past history: pacemaker Onset (ago): hour(s) Timing: awoke with symptoms Severity: moderate Associated symptoms: Reports chest pain and nausea; Denies chills or vomiting Review of Systems Const: Denies: fever(s) or chills Eyes: Denies: change in vision Card: Reports: chest pain Resp: Denies: dyspnea, productive cough or non-productive cough GI: Reports: abdominal pain and nausea; Denies: vomiting Neuro: Reports: weakness in extremities (Generalized) and dizziness PFS ED PFSH: Medical History Atrial fibrillation CAD (coronary artery disease) Hyperlipidemia Hypothyroid Pacemaker Peripheral neuropathy SOB (shortness of breath) Surgical History H/O: hysterectomy Family History Father CAD (coronary artery disease) Cancer Brother CAD (coronary artery disease) Brother CAD (coronary artery disease) Sister CAD (coronary artery disease) Family/Other Diabetes Other Hyperlipidemia Hypertension Denies family history of Clotting disorder Dementia Chronic kidney disease (CKD) Suicide Anesthesia complication Bleeding disorder Lung disease Stroke Social History Smoking and tobacco status: never smoked Alcohol intake: never Physical Exam Const: COMMON NORMALS: no acute distress and alert GENERAL APPEARANCE: cooperative and frail appearing HENMT: COMMON NORMALS: normocephalic HEAD & SCALP: normocephalic Eye: COMMON NORMALS: Equal, round and reactive pupils present and EOMs intact bilaterally PUPIL: Yes Equal, round and reactive pupils present Chest: COMMONS NORMALS: normal inspection of the chest Resp: COMMON NORMALS: normal respiratory effort, No use of accessory muscles and clear to auscultation bilaterally AUSCULTATION: clear to auscultation bilaterally Cardio: COMMON NORMALS: regular rate and regular rhythm RATE: regular rate RHYTHM: regular rhythm GI: COMMON NORMALS: Normal to inspection, nondistended, normoactive bowel sounds present and Soft to palpation PALPATION: Yes Soft to palpation and Yes Tenderness to palpation present (GI) (Diffuse) Neuro: SENSORIUM/ORIENTATION: Yes alert Course Vital Signs: Vital signs: Vital Signs Temperature 98.4 F 09/21/20 04:13 Pulse Rate 70 09/21/20 08:55 Respiratory Rate 24 H 09/21/20 07:08 Blood Pressure 149/69 09/21/20 08:55 Pulse Oximetry 99 09/21/20 08:55 MDM - Dizziness MDM Narrative: Medical decision making narrative: 80-year-old lady with multiple complaints abdominal pain and constipation, although she laboratory is benign. She does have a mild elevation in her troponin, so a second 1 will be necessary as she did have chest pain last night. Is dizzy as well. CTs of the head and belly ordered. I will check this patient out to Dr. Bhatt at shift change. Lab Data: Labs: Lab Results 09/21/20 09/21/20 09/21/20 Range/Units 05:05 05:05 05:05 WBC 4.8 (4.0-10.0) 10^3/ uL RBC 4.19 (4.1-5.3) 10^6/u L Hgb 13.1 (11.5-15.3) g/dL Hct 41.5 (37.0-47.0) % MCV 99.0 (81-99) fL MCH 31.3 (28.0-34.0) pg MCHC 31.6 (30.0-36.0) g/dL RDW 13.7 (12.1-15.1) % Plt Count 145 (130-400) 10^3/c mm MPV 9.8 (7.4-10.4) fL Neut % (Auto) 62.9 % Lymph % (Auto) 27.6 % [place] % (Auto) 6.8 % Eos % (Auto) 1.5 % Baso % (Auto) 0.8 % Neut # (Auto) 3.03 (1.8-7.7) 10^3/u L Lymph # (Auto) 1.3 (0.8-4.8) 10^3/u L [place] # (Auto) 0.3 (0.2-0.9) 10^3/u L Eos # (Auto) 0.1 (0.0-0.8) 10^3/u L Baso # (Auto) 0.0 (0.0-0.1) 10^3/u L Nucleated RBC % (a uto) 0 % Nucleated RBCs # 0.0 /100WBC PT (12.1-14.9) SECO NDS INR (0.8-1.2) Sodium 143 (136-145) mmol/L Potassium 3.6 (3.5-5.1) mmol/L Chloride 107 (98-107) mmol/L Carbon Dioxide 24 (22-29) mmol/L Anion Gap 15.6 (5-19) BUN 27 H (8-23) mg/dL Creatinine 1.1 H (0.5-0.9) mg/dL GFR Calculation Not Reportable Glucose 104 (65-115) mg/dL Calculated Osmolal ity 301 H (285-295) mOsm/k g Lactate 1.6 (0.5-2.2) mmol/L Calcium 8.1 L (8.5-10.5) mg/dL Magnesium 1.9 (1.7-2.3) mg/dL Total Bilirubin 0.5 (0.15-1.2) mg/dL AST 28 (0-32) U/L ALT 19 (0-33) U/L Alkaline Phosphata se 103 (35-105) IU/L Creatine Kinase 68 (26-192) U/L Troponin T Baselin e (0-10) ng/L Troponin T 120 Min [place] (0-10) ng/L Delta Troponin T (0-10) ABS# C-Reactive Protein 2.1 (0.0-4.9) mg/L NT-Pro-B Natriuret Pep 3071 H (0-450) pg/mL Total Protein 5.9 L (6.6-8.7) g/dL Albumin 3.9 (3.5-5.2) g/dL Globulin 2.0 (1.3-4.6) g/dL Lipase 29 (13-60) U/L Urine Color (Yellow) Urine Appearance (CLEAR) Urine pH (5-7) Ur Specific Gravit y (1.005-1.030) Urine Protein (Negative) Urine Glucose (UA) (Normal) Urine Ketones (Negative) Urine Blood (Negative) Urine Nitrate (Negative) Urine Bilirubin (Negative) Urine Urobilinogen (Negative) mg/dL Ur Leukocyte Sharonda ase (Negative) 09/21/20 09/21/20 09/21/20 Range/Units 05:05 05:35 06:10 WBC (4.0-10.0) 10^3/ uL RBC (4.1-5.3) 10^6/u L Hgb (11.5-15.3) g/dL Hct (37.0-47.0) % MCV (81-99) fL MCH (28.0-34.0) pg MCHC (30.0-36.0) g/dL RDW (12.1-15.1) % Plt Count (130-400) 10^3/c mm MPV (7.4-10.4) fL Neut % (Auto) % Lymph % (Auto) % [place] % (Auto) % Eos % (Auto) % Baso % (Auto) % Neut # (Auto) (1.8-7.7) 10^3/u L Lymph # (Auto) (0.8-4.8) 10^3/u L [place] # (Auto) (0.2-0.9) 10^3/u L Eos # (Auto) (0.0-0.8) 10^3/u L Baso # (Auto) (0.0-0.1) 10^3/u L Nucleated RBC % (a uto) % Nucleated RBCs # /100WBC PT 30.30 H (12.1-14.9) SECO NDS INR 2.84 H (0.8-1.2) Sodium (136-145) mmol/L Potassium (3.5-5.1) mmol/L Chloride (98-107) mmol/L Carbon Dioxide (22-29) mmol/L Anion Gap (5-19) BUN (8-23) mg/dL Creatinine (0.5-0.9) mg/dL GFR Calculation Glucose (65-115) mg/dL Calculated Osmolal ity (285-295) mOsm/k g Lactate (0.5-2.2) mmol/L Calcium (8.5-10.5) mg/dL Magnesium (1.7-2.3) mg/dL Total Bilirubin (0.15-1.2) mg/dL AST (0-32) U/L ALT (0-33) U/L Alkaline Phosphata se (35-105) IU/L Creatine Kinase (26-192) U/L Troponin T Baselin e 37 H (0-10) ng/L Troponin T 120 Min [place] (0-10) ng/L Delta Troponin T (0-10) ABS# C-Reactive Protein (0.0-4.9) mg/L NT-Pro-B Natriuret Pep (0-450) pg/mL Total Protein (6.6-8.7) g/dL Albumin (3.5-5.2) g/dL Globulin (1.3-4.6) g/dL Lipase (13-60) U/L Urine Color Straw (Yellow) Urine Appearance Clear (CLEAR) Urine pH 7 (5-7) Ur Specific Gravit y 1.005 (1.005-1.030) Urine Protein Neg (Negative) Urine Glucose (UA) Norm (Normal) Urine Ketones Negative (Negative) Urine Blood Neg (Negative) Urine Nitrate Negative (Negative) Urine Bilirubin Neg (Negative) Urine Urobilinogen Norm (Negative) mg/dL Ur Leukocyte Sharonda ase Negative (Negative) 09/21/20 Range/Units 07:33 WBC (4.0-10.0) 10^3/ uL RBC (4.1-5.3) 10^6/u L Hgb (11.5-15.3) g/dL Hct (37.0-47.0) % MCV (81-99) fL MCH (28.0-34.0) pg MCHC (30.0-36.0) g/dL RDW (12.1-15.1) % Plt Count (130-400) 10^3/c mm MPV (7.4-10.4) fL Neut % (Auto) % Lymph % (Auto) % [place] % (Auto) % Eos % (Auto) % Baso % (Auto) % Neut # (Auto) (1.8-7.7) 10^3/u L Lymph # (Auto) (0.8-4.8) 10^3/u L [place] # (Auto) (0.2-0.9) 10^3/u L Eos # (Auto) (0.0-0.8) 10^3/u L Baso # (Auto) (0.0-0.1) 10^3/u L Nucleated RBC % (a uto) % Nucleated RBCs # /100WBC PT (12.1-14.9) SECO NDS INR (0.8-1.2) Sodium (136-145) mmol/L Potassium (3.5-5.1) mmol/L Chloride (98-107) mmol/L Carbon Dioxide (22-29) mmol/L Anion Gap (5-19) BUN (8-23) mg/dL Creatinine (0.5-0.9) mg/dL GFR Calculation Glucose (65-115) mg/dL Calculated Osmolal ity (285-295) mOsm/k g Lactate (0.5-2.2) mmol/L Calcium (8.5-10.5) mg/dL Magnesium (1.7-2.3) mg/dL Total Bilirubin (0.15-1.2) mg/dL AST (0-32) U/L ALT (0-33) U/L Alkaline Phosphata se (35-105) IU/L Creatine Kinase (26-192) U/L Troponin T Baselin e (0-10) ng/L Troponin T 120 Min [place] 37.71 H (0-10) ng/L Delta Troponin T 0.71 (0-10) ABS# C-Reactive Protein (0.0-4.9) mg/L NT-Pro-B Natriuret Pep (0-450) pg/mL Total Protein (6.6-8.7) g/dL Albumin (3.5-5.2) g/dL Globulin (1.3-4.6) g/dL Lipase (13-60) U/L Urine Color (Yellow) Urine Appearance (CLEAR) Urine pH (5-7) Ur Specific Gravit y (1.005-1.030) Urine Protein (Negative) Urine Glucose (UA) (Normal) Urine Ketones (Negative) Urine Blood (Negative) Urine Nitrate (Negative) Urine Bilirubin (Negative) Urine Urobilinogen (Negative) mg/dL Ur Leukocyte Sharonda ase (Negative) Discharge Plan Discharge Patient Disposition: Home Clinical Impression: Dizziness Constipation Qualifiers: Constipation type: unspecified constipation type Qualified Code(s): K59.00 - Constipation, unspecified Condition: Stable Prescriptions: New Miralax 17 gram/dose powder 17 g PO DAILY 4 Days Qty: 119 RF: 0 No Action nitroglycerin [Nitrostat] 0.4 mg tablet, sublingual 0.4 mg SUBLINGUAL Q5M PRN (Reason: Angina) RF: 0 carvedilol 25 mg tablet 25 mg PO BID RF: 0 diltiazem HCl 240 mg capsule,extended release 24 hr 240 mg PO DAILY RF: 0 gabapentin 300 mg capsule 300 mg PO DAILY RF: 0 isosorbide mononitrate 60 mg tablet extended release 24 hr 60 mg PO DAILY RF: 0 multivitamin Tablet 1 tab PO DAILY RF: 0 lovastatin 40 mg tablet 80 mg PO DAILY RF: 0 quetiapine 25 mg tablet 25 mg PO DAILY RF: 0 tramadol 50 mg tablet 50 mg PO Q6H PRN (Reason: Pain) RF: 0 warfarin 5 mg tablet 5 mg PO DAILY RF: 0 lisinopril 20 mg tablet 20 mg PO BID RF: 0 alprazolam 0.25 mg tablet 0.25 mg PO .bedtime PRN (Reason: isomnia) RF: 0 pantoprazole 20 mg tablet,delayed release (DR/EC) 20 mg PO DAILY RF: 0 sennosides 8.6 mg tablet 17.2 mg PO .bedtime RF: 0 furosemide 40 mg tablet 40 mg PO DAILY Qty: 90 RF: 1 potassium chloride 20 mEq tablet extended release 20 meq PO DAILY Qty: 90 RF: 1 Discharge Orders: Discharge ED (Routine); Ordered 09/21/20 Ordered By: Luis Bhatt Referrals: Quique Dumont Jr, MD [Primary Care Provider] - Discharge Diet: Advance as tolerated Patient Instructions: Opioid Safety Coding Level of Care Code ED Striper Machine for Chg Fwd Exam Detailed Documented by User: Luis Bhatt MD 09/21/20 08:17 HPI - Dizziness General: Chief Complaint: Dizziness Stated Complaint: dizzy,fatigue,constipated Time Seen by Provider: 09/21/20 04:18 PFSH ED PFSH: Medical History Atrial fibrillation CAD (coronary artery disease) Hyperlipidemia Hypothyroid Pacemaker Peripheral neuropathy SOB (shortness of breath) Surgical History H/O: hysterectomy Family History Father CAD (coronary artery disease) Cancer Brother CAD (coronary artery disease) Brother CAD (coronary artery disease) Sister CAD (coronary artery disease) Family/Other Diabetes Other Hyperlipidemia Hypertension Denies family history of Clotting disorder Dementia Chronic kidney disease (CKD) Suicide Anesthesia complication Bleeding disorder Lung disease Stroke Social History Smoking and tobacco status: never smoked Alcohol intake: never Course Vital Signs: Vital signs: Vital Signs Temperature 98.4 F 09/21/20 04:13 Pulse Rate 70 09/21/20 08:55 Respiratory Rate 24 H 09/21/20 07:08 Blood Pressure 149/69 09/21/20 08:55 Pulse Oximetry 99 09/21/20 08:55 MDM - Dizziness MDM Narrative: Medical decision making narrative: Patient care accepted from Dr. Barboza. Patient states that she is feeling better after IV fluids. She is still complaining of some constipation so we will discharge her home with magnesium citrate and MiraLAX. No other significant abnormality noted on CT or labs. Troponin was negative x2. All of patient's abdominal pain is lower and she has no right upper quadrant pain so see no indication for ultrasound of her gallbladder at this time. Patient with no chest pain or respiratory complaints. Lab Data: Labs: Lab Results 09/21/20 09/21/20 09/21/20 Range/Units 05:05 05:05 05:05 WBC 4.8 (4.0-10.0) 10^3/ uL RBC 4.19 (4.1-5.3) 10^6/u L Hgb 13.1 (11.5-15.3) g/dL Hct 41.5 (37.0-47.0) % MCV 99.0 (81-99) fL MCH 31.3 (28.0-34.0) pg MCHC 31.6 (30.0-36.0) g/dL RDW 13.7 (12.1-15.1) % Plt Count 145 (130-400) 10^3/c mm MPV 9.8 (7.4-10.4) fL Neut % (Auto) 62.9 % Lymph % (Auto) 27.6 % [place] % (Auto) 6.8 % Eos % (Auto) 1.5 % Baso % (Auto) 0.8 % Neut # (Auto) 3.03 (1.8-7.7) 10^3/u L Lymph # (Auto) 1.3 (0.8-4.8) 10^3/u L [place] # (Auto) 0.3 (0.2-0.9) 10^3/u L Eos # (Auto) 0.1 (0.0-0.8) 10^3/u L Baso # (Auto) 0.0 (0.0-0.1) 10^3/u L Nucleated RBC % (a uto) 0 % Nucleated RBCs # 0.0 /100WBC PT (12.1-14.9) SECO NDS INR (0.8-1.2) Sodium 143 (136-145) mmol/L Potassium 3.6 (3.5-5.1) mmol/L Chloride 107 (98-107) mmol/L Carbon Dioxide 24 (22-29) mmol/L Anion Gap 15.6 (5-19) BUN 27 H (8-23) mg/dL Creatinine 1.1 H (0.5-0.9) mg/dL GFR Calculation Not Reportable Glucose 104 (65-115) mg/dL Calculated Osmolal ity 301 H (285-295) mOsm/k g Lactate 1.6 (0.5-2.2) mmol/L Calcium 8.1 L (8.5-10.5) mg/dL Magnesium 1.9 (1.7-2.3) mg/dL Total Bilirubin 0.5 (0.15-1.2) mg/dL AST 28 (0-32) U/L ALT 19 (0-33) U/L Alkaline Phosphata se 103 (35-105) IU/L Creatine Kinase 68 (26-192) U/L Troponin T Baselin e (0-10) ng/L Troponin T 120 Min [place] (0-10) ng/L Delta Troponin T (0-10) ABS# C-Reactive Protein 2.1 (0.0-4.9) mg/L NT-Pro-B Natriuret Pep 3071 H (0-450) pg/mL Total Protein 5.9 L (6.6-8.7) g/dL Albumin 3.9 (3.5-5.2) g/dL Globulin 2.0 (1.3-4.6) g/dL Lipase 29 (13-60) U/L Urine Color (Yellow) Urine Appearance (CLEAR) Urine pH (5-7) Ur Specific Gravit y (1.005-1.030) Urine Protein (Negative) Urine Glucose (UA) (Normal) Urine Ketones (Negative) Urine Blood (Negative) Urine Nitrate (Negative) Urine Bilirubin (Negative) Urine Urobilinogen (Negative) mg/dL Ur Leukocyte Sharonda ase (Negative) 09/21/20 09/21/20 09/21/20 Range/Units 05:05 05:35 06:10 WBC (4.0-10.0) 10^3/ uL RBC (4.1-5.3) 10^6/u L Hgb (11.5-15.3) g/dL Hct (37.0-47.0) % MCV (81-99) fL MCH (28.0-34.0) pg MCHC (30.0-36.0) g/dL RDW (12.1-15.1) % Plt Count (130-400) 10^3/c mm MPV (7.4-10.4) fL Neut % (Auto) % Lymph % (Auto) % [place] % (Auto) % Eos % (Auto) % Baso % (Auto) % Neut # (Auto) (1.8-7.7) 10^3/u L Lymph # (Auto) (0.8-4.8) 10^3/u L [place] # (Auto) (0.2-0.9) 10^3/u L Eos # (Auto) (0.0-0.8) 10^3/u L Baso # (Auto) (0.0-0.1) 10^3/u L Nucleated RBC % (a uto) % Nucleated RBCs # /100WBC PT 30.30 H (12.1-14.9) SECO NDS INR 2.84 H (0.8-1.2) Sodium (136-145) mmol/L Potassium (3.5-5.1) mmol/L Chloride (98-107) mmol/L Carbon Dioxide (22-29) mmol/L Anion Gap (5-19) BUN (8-23) mg/dL Creatinine (0.5-0.9) mg/dL GFR Calculation Glucose (65-115) mg/dL Calculated Osmolal ity (285-295) mOsm/k g Lactate (0.5-2.2) mmol/L Calcium (8.5-10.5) mg/dL Magnesium (1.7-2.3) mg/dL Total Bilirubin (0.15-1.2) mg/dL AST (0-32) U/L ALT (0-33) U/L Alkaline Phosphata se (35-105) IU/L Creatine Kinase (26-192) U/L Troponin T Baselin e 37 H (0-10) ng/L Troponin T 120 Min [place] (0-10) ng/L Delta Troponin T (0-10) ABS# C-Reactive Protein (0.0-4.9) mg/L NT-Pro-B Natriuret Pep (0-450) pg/mL Total Protein (6.6-8.7) g/dL Albumin (3.5-5.2) g/dL Globulin (1.3-4.6) g/dL Lipase (13-60) U/L Urine Color Straw (Yellow) Urine Appearance Clear (CLEAR) Urine pH 7 (5-7) Ur Specific Gravit y 1.005 (1.005-1.030) Urine Protein Neg (Negative) Urine Glucose (UA) Norm (Normal) Urine Ketones Negative (Negative) Urine Blood Neg (Negative) Urine Nitrate Negative (Negative) Urine Bilirubin Neg (Negative) Urine Urobilinogen Norm (Negative) mg/dL Ur Leukocyte Sharonda ase Negative (Negative) 09/21/20 Range/Units 07:33 WBC (4.0-10.0) 10^3/ uL RBC (4.1-5.3) 10^6/u L Hgb (11.5-15.3) g/dL Hct (37.0-47.0) % MCV (81-99) fL MCH (28.0-34.0) pg MCHC (30.0-36.0) g/dL RDW (12.1-15.1) % Plt Count (130-400) 10^3/c mm MPV (7.4-10.4) fL Neut % (Auto) % Lymph % (Auto) % [place] % (Auto) % Eos % (Auto) % Baso % (Auto) % Neut # (Auto) (1.8-7.7) 10^3/u L Lymph # (Auto) (0.8-4.8) 10^3/u L [place] # (Auto) (0.2-0.9) 10^3/u L Eos # (Auto) (0.0-0.8) 10^3/u L Baso # (Auto) (0.0-0.1) 10^3/u L Nucleated RBC % (a uto) % Nucleated RBCs # /100WBC PT (12.1-14.9) SECO NDS INR (0.8-1.2) Sodium (136-145) mmol/L Potassium (3.5-5.1) mmol/L Chloride (98-107) mmol/L Carbon Dioxide (22-29) mmol/L Anion Gap (5-19) BUN (8-23) mg/dL Creatinine (0.5-0.9) mg/dL GFR Calculation Glucose (65-115) mg/dL Calculated Osmolal ity (285-295) mOsm/k g Lactate (0.5-2.2) mmol/L Calcium (8.5-10.5) mg/dL Magnesium (1.7-2.3) mg/dL Total Bilirubin (0.15-1.2) mg/dL AST (0-32) U/L ALT (0-33) U/L Alkaline Phosphata se (35-105) IU/L Creatine Kinase (26-192) U/L Troponin T Baselin e (0-10) ng/L Troponin T 120 Min [place] 37.71 H (0-10) ng/L Delta Troponin T 0.71 (0-10) ABS# C-Reactive Protein (0.0-4.9) mg/L NT-Pro-B Natriuret Pep (0-450) pg/mL Total Protein (6.6-8.7) g/dL Albumin (3.5-5.2) g/dL Globulin (1.3-4.6) g/dL Lipase (13-60) U/L Urine Color (Yellow) Urine Appearance (CLEAR) Urine pH (5-7) Ur Specific Gravit y (1.005-1.030) Urine Protein (Negative) Urine Glucose (UA) (Normal) Urine Ketones (Negative) Urine Blood (Negative) Urine Nitrate (Negative) Urine Bilirubin (Negative) Urine Urobilinogen (Negative) mg/dL Ur Leukocyte Sharonda ase (Negative) Other Data: Attestation for Other Data: I personally reviewed and interpreted the following: Discharge Plan Discharge Patient Disposition: Home Clinical Impression: Dizziness Constipation Qualifiers: Constipation type: unspecified constipation type Qualified Code(s): K59.00 - Constipation, unspecified Condition: Stable Prescriptions: New Miralax 17 gram/dose powder 17 g PO DAILY 4 Days Qty: 119 RF: 0 No Action nitroglycerin [Nitrostat] 0.4 mg tablet, sublingual 0.4 mg SUBLINGUAL Q5M PRN (Reason: Angina) RF: 0 carvedilol 25 mg tablet 25 mg PO BID RF: 0 diltiazem HCl 240 mg capsule,extended release 24 hr 240 mg PO DAILY RF: 0 gabapentin 300 mg capsule 300 mg PO DAILY RF: 0 isosorbide mononitrate 60 mg tablet extended release 24 hr 60 mg PO DAILY RF: 0 multivitamin Tablet 1 tab PO DAILY RF: 0 lovastatin 40 mg tablet 80 mg PO DAILY RF: 0 quetiapine 25 mg tablet 25 mg PO DAILY RF: 0 tramadol 50 mg tablet 50 mg PO Q6H PRN (Reason: Pain) RF: 0 warfarin 5 mg tablet 5 mg PO DAILY RF: 0 lisinopril 20 mg tablet 20 mg PO BID RF: 0 alprazolam 0.25 mg tablet 0.25 mg PO .bedtime PRN (Reason: isomnia) RF: 0 pantoprazole 20 mg tablet,delayed release (DR/EC) 20 mg PO DAILY RF: 0 sennosides 8.6 mg tablet 17.2 mg PO .bedtime RF: 0 furosemide 40 mg tablet 40 mg PO DAILY Qty: 90 RF: 1 potassium chloride 20 mEq tablet extended release 20 meq PO DAILY Qty: 90 RF: 1 Discharge Orders: Discharge ED (Routine); Ordered 09/21/20 Ordered By: Luis Bhatt Referrals: Quique Dumont Jr, MD [Primary Care Provider] - Discharge Diet: Advance as tolerated Patient Instructions: Opioid Safety Coding Level of Care Code ED Striper Machine for Chg Fwd Exam Detailed
[2020-09-21 06:21] LABS: Add Urine Microscopic? NO; Charge for UA Resulting for Rev
[2020-09-21 06:24] LABS: Bilirubin Urine Neg (Negative); Blood Urine Neg (Negative); Glucose Urine UA Norm (Normal); Ketones Urine Negative (Negative); Leukocyte Esterase Urine Negative (Negative); Nitrate Urine Negative (Negative); Protein Urine Neg (Negative); Specific Gravity, Urine 1.005 (1.005-1.030); Urine Appearance Clear (CLEAR); Urine Color Straw (Yellow); Urobilinogen Urine Norm (Negative); pH Urine 7 (5-7)
[2020-09-21] MEDS: iodixanol 320 mg/mL 100mL Btl IV (06:38)
--- NOTE | 2020-09-21 06:55 | ECG_ITS ---
[facility] Test Date: 2020-09-21 Pat Name: Magy Hebert Department: Room: Gender: Female Law Examiner: : 1940 Requested By: Mitchel Sapp Order Number: [id number] Tod MD: Amaury Lopez M.D. Measurements Intervals [place] Rate: 71 P: [place]: QRS: 137 QRSD: 193 T: -30 QT: 477 QTc: 520 Interpretive Statements ELECTRONIC VENTRICULAR PACEMAKER Compared to ECG 05/06/2020 04:33:22 No significant changes Electronically Signed On 09-21-2020 16:05:48 CDT by Amaury Lopez M.D. [id number]
[2020-09-21 07:08] VITALS: BP 140/95; PULSE 70; RESP 24; O2SAT 97
[2020-09-21 08:03] LABS: Troponin 5 2HR 37.71 ng/L (0-10); Troponin 5 2HR Delta 0.71 ABS# (0-10)
[2020-09-21 08:55] VITALS: BP 149/69; PULSE 70; O2SAT 99
[2020-09-21] MEDS: magnesium citrate Btl 296 mL PO (08:55)
== END 2020-09-21 08:30 | disposition home or self-care (01) ==
PROVIDERS: Emergency Medicine; Emergency Provider Emergency Medicine; PCP Family Medicine
DX: R42 Dizziness and giddiness (principal); K59.00 Constipation, unspecified; Z79.01 Long term (current) use of anticoagulants; I48.91 Unspecified atrial fibrillation; I25.10 Atherosclerotic heart disease of native coronary artery without angina pectoris; E78.5 Hyperlipidemia, unspecified; Z95.0 Presence of cardiac pacemaker
CPT/HCPCS: 70450; 71045; 74177; 80053; 81003; 82550; 83605; 83690; 83735; 83880; 84484; 85025; 85610; 86140; 93005; 96360; 99284; J7030; Q9967

== ENCOUNTER 2020-12-17 09:01 | Emergency (ER) | payer MEDICARE, MEDICAID, SELFPAY ==
--- NOTE | 2020-12-17 09:06 | ECG_ITS ---
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
--- NOTE | 2020-12-17 09:06 | XR_ITS ---
WS: [id number] Exam: XR chest 1V portable [id number] Date/Time of Exam: 12/17/2020 9:06 AM Reason For Exam: dyspnea/cough Comparison 09/21/2020. There are mild patchy groundglass infiltrates seen in the upper and lower left lung suspicious for pn eumonia. The right lung appears to be clear. The heart is enlarged but unchanged in size. No pleural effusions. An ICD superimposes the right chest. The mediastinum is not widened. Regional bony structu res are intact. XR/XR chest 1V portable [id number] IMPRESSION: 1. Mild groundglass infiltrates in the upper and lower lobes of the left lung s uspicious for developing pneumonia. 2. Chronic cardiac enlargement.
--- NOTE | 2020-12-17 09:06 | CT_ITS ---
WS: [id number] CT HEAD TECHNIQUE: Noncontrast CT of the head obtained from the skullbase to the vertex. CLINICAL INFORMATION: AMS COMPARISON: September 21, 2020 DLP: 894.[address] scans at [facility] use at least one of these dose optimization techniques: automat ed exposure control; mA and/or kV adjustment per patient size (includes targeted exams where dose is matched to clinical indication); or iterative reconstruction. FINDINGS: No evidence of intracranial hemorrhage or mass effect. Ventricular system and basal cisterns are wheat nt. Mild small vessel changes with moderate parenchymal volume loss. No extra-axial fluid collections . No evidence of mass or mass effect. Normal davis-white differentiation. Paranasal sinuses and mastoid air cells are well aerated. .Normal visualized soft tissues. CT/CT head wo con* [id number] IMPRESSION: 1. No evidence of intracranial hemorrhage or mass effect. 2. Mild small vessel changes. Moderate parenchymal volume loss. 3. No acute intracranial findings. Notified Domo Herrera DO at 12/17/2020 10:08 AM.
[2020-12-17 09:37] VITALS: BP 164/84; PULSE 78; RESP 18; TEMP 36.9; O2SAT 91; BMI 26.2
--- NOTE | 2020-12-17 10:06 | W.ED.PSYCH ---
HPI - Psych General: Chief Complaint: Psychiatric Symptoms Stated Complaint: hallucinations: sent by PCP Time Seen by Provider: 12/17/20 09:02 History of Present Illness: HPI Narrative: 80-year-old female with a known history of dementia. She has been having some sundowning with hallucinations at night seeing people snakes she is not making any suicidal homicidal ideation remarks she is not violent or self-destructive just very agitated at night. She is much better now. She is has known dementia for some time now. No recent illness no fever sweats chills cough. No complaint of abdominal pain chest pain shortness of breath the patient has been vaccinated for Covid. Patient recently began MD complaint: other (Dementia) Review of Systems General: Reports: ROS unobtainable due to mental status PFSH ED PFSH: Medical History Atrial fibrillation CAD (coronary artery disease) Hyperlipidemia Hypothyroid Pacemaker Peripheral neuropathy SOB (shortness of breath) Surgical History H/O: hysterectomy Family History Father CAD (coronary artery disease) Cancer Brother CAD (coronary artery disease) Brother CAD (coronary artery disease) Sister CAD (coronary artery disease) Family/Other Diabetes Other Hyperlipidemia Hypertension Denies family history of Clotting disorder Dementia Chronic kidney disease (CKD) Suicide Anesthesia complication Bleeding disorder Lung disease Stroke Social History Smoking and tobacco status: never smoked Alcohol intake: never Physical Exam Const: COMMON NORMALS: no acute distress GENERAL APPEARANCE: cooperative and comfortable HENMT: COMMON NORMALS: normocephalic and atraumatic HEAD & SCALP: normocephalic and atraumatic Neck/C-Spine: COMMON NORMALS: no JVD Lymph: LYMPHATIC: no lymphadenopathy noted and no lymphedema noted Resp: COMMON NORMALS: normal respiratory effort, No retractions, No use of accessory muscles and clear to auscultation bilaterally AUSCULTATION: clear to auscultation bilaterally Cardio: COMMON NORMALS: no JVD, regular rate, regular rhythm and No murmurs present (Cardio) RATE: regular rate RHYTHM: regular rhythm GI: COMMON NORMALS: Soft to palpation and No hepatosplenomegaly present AUSCULTATION: Yes normoactive bowel sounds PALPATION: Yes Soft to palpation, No Tenderness to palpation present (GI), No Guarding due to palpation present (GI) and Yes No hepatosplenomegaly present Extremity: COMMON NORMALS: normal to inspection, capillary refill normal, no clubbing, cyanosis or edema, no calf tenderness and no pedal edema Skin: COMMON NORMALS: no rashes or lesions noted GENERAL SKIN EXAM: no rashes or lesions noted Course Vital Signs: Vital signs: Vital Signs Temperature 98.4 F 12/17/20 09:37 Pulse Rate 73 12/17/20 14:38 Respiratory Rate 16 12/17/20 14:38 Blood Pressure 168/91 12/17/20 14:38 Pulse Oximetry 90 12/17/20 14:38 MDM - Psych MDM Narrative: Medical decision making narrative: Discussed with the son who is at the bedside. Reviewed the chart reviewed all labs on the chart as well discussed with the family. I think there are several things contributing to this first is a steroids that she is on she should stop those. Second she does have a little bit of a bladder infection. She does have some underlying dementia I think the worsening symptoms are caused by the bladder infection and the medications will have her follow-up with her primary care. Return if is worsening. Lab Data: Labs: Lab Results 12/17/20 12/17/20 12/17/20 Range/Units 10:34 10:34 10:34 WBC 11.7 H (4.0-10.0) 10^3/ uL RBC 5.03 (4.1-5.3) 10^6/u L Hgb 15.6 H (11.5-15.3) g/dL Hct 48.2 H (37.0-47.0) % MCV 95.8 (81-99) fl MCH 31.0 (28.0-34.0) pg MCHC 32.4 (30.0-36.0) g/dL RDW 15.7 H (12.1-15.1) % Plt Count 172 (130-400) 10^3/c mm MPV 10.8 H (7.4-10.4) fL Neut % (Auto) 79.7 % Lymph % (Auto) 9.6 % Metcalfe % (Auto) 8.7 % Eos % (Auto) 0.0 % Baso % (Auto) 0.3 % Neut # (Auto) 9.29 H (1.8-7.7) 10^3/u L Lymph # (Auto) 1.1 (0.8-4.8) 10^3/u L Metcalfe # (Auto) 1.0 H (0.2-0.9) 10^3/u L Eos # (Auto) 0.0 (0.0-0.8) 10^3/u L Baso # (Auto) 0.0 (0.0-0.1) 10^3/u L Nucleated RBC % (a uto) 0.3 % Nucleated RBCs # 0.0 /100WBC Sodium 139 (136-145) mmol/L Potassium 3.7 (3.5-5.1) mmol/L Chloride 99 (98-107) mmol/L Carbon Dioxide 25 (22-29) mmol/L Anion Gap 18.7 (5-19) BUN 31 H (8-23) mg/dL Creatinine 1.0 H (0.5-0.9) mg/dL GFR Calculation Not Reportable Glucose 263 H (65-115) mg/dL Calculated Osmolal ity 304 H (285-295) mOsm/k g Lactic Acid 2.8 H (0.5-2.2) mmol/L Lactic Acid (Sepsi s) (0.5-2.2) mmol/L Calcium 9.5 (8.5-10.5) mg/dL Total Bilirubin 1.2 (0.15-1.2) mg/dL AST 48 H (0-32) U/L ALT 59 H (0-33) U/L Alkaline Phosphata se 101 (35-105) IU/L Total Protein 7.3 (6.6-8.7) g/dL Albumin 4.4 (3.5-5.2) g/dL Globulin 2.9 (1.3-4.6) g/dL Urine Color (Yellow) Urine Appearance (CLEAR) Urine pH (5-7) Ur Specific Gravit y (1.005-1.030) Urine Protein (Negative) Urine Glucose (UA) (Normal) Urine Ketones (Negative) Urine Blood (Negative) Urine Nitrate (Negative) Urine Bilirubin (Negative) Urine Urobilinogen (Negative) mg/dL Ur Leukocyte Sharonda ase (Negative) Urine RBC (0-2) /hpf Urine WBC (0-5) /hpf Ur Squamous Epith Cells (0-5) /hpf Amorphous Sediment Urine Bacteria (NONE) /hpf Nasal/Oral COVID-1 9 PCR SARS-CoV-2 Ag (Rap id) (Negative) 12/17/20 12/17/20 12/17/20 Range/Units 10:34 10:34 10:39 WBC (4.0-10.0) 10^3/ uL RBC (4.1-5.3) 10^6/u L Hgb (11.5-15.3) g/dL Hct (37.0-47.0) % MCV (81-99) fl MCH (28.0-34.0) pg MCHC (30.0-36.0) g/dL RDW (12.1-15.1) % Plt Count (130-400) 10^3/c mm MPV (7.4-10.4) fL Neut % (Auto) % Lymph % (Auto) % [place]cal[place] % (Auto) % Eos % (Auto) % Baso % (Auto) % Neut # (Auto) (1.8-7.7) 10^3/u L Lymph # (Auto) (0.8-4.8) 10^3/u L [place]calfe # (Auto) (0.2-0.9) 10^3/u L Eos # (Auto) (0.0-0.8) 10^3/u L Baso # (Auto) (0.0-0.1) 10^3/u L Nucleated RBC % (a uto) % Nucleated RBCs # /100WBC Sodium (136-145) mmol/L Potassium (3.5-5.1) mmol/L Chloride (98-107) mmol/L Carbon Dioxide (22-29) mmol/L Anion Gap (5-19) BUN (8-23) mg/dL Creatinine (0.5-0.9) mg/dL GFR Calculation Glucose (65-115) mg/dL Calculated Osmolal ity (285-295) mOsm/k g Lactic Acid (0.5-2.2) mmol/L Lactic Acid (Sepsi s) (0.5-2.2) mmol/L Calcium (8.5-10.5) mg/dL Total Bilirubin (0.15-1.2) mg/dL AST (0-32) U/L ALT (0-33) U/L Alkaline Phosphata se (35-105) IU/L Total Protein (6.6-8.7) g/dL Albumin (3.5-5.2) g/dL Globulin (1.3-4.6) g/dL Urine Color Yellow (Yellow) Urine Appearance Clear (CLEAR) Urine pH 5 (5-7) Ur Specific Gravit y 1.010 (1.005-1.030) Urine Protein 2+ H (Negative) Urine Glucose (UA) Norm (Normal) Urine Ketones Negative (Negative) Urine Blood 3+ H (Negative) Urine Nitrate Negative (Negative) Urine Bilirubin Neg (Negative) Urine Urobilinogen Neg (Negative) mg/dL Ur Leukocyte Sharonda ase Negative (Negative) Urine RBC 15-25 H (0-2) /hpf Urine WBC 5-10 H (0-5) /hpf Ur Squamous Epith Cells 5-10 H (0-5) /hpf Amorphous Sediment Not Reportable Urine Bacteria 4+ H (NONE) /hpf Nasal/Oral COVID-1 9 PCR Not detected SARS-CoV-2 Ag (Rap id) Negative (Negative) 12/17/20 Range/Units 13:00 WBC (4.0-10.0) 10^3/ uL RBC (4.1-5.3) 10^6/u L Hgb (11.5-15.3) g/dL Hct (37.0-47.0) % MCV (81-99) fl MCH (28.0-34.0) pg MCHC (30.0-36.0) g/dL RDW (12.1-15.1) % Plt Count (130-400) 10^3/c mm MPV (7.4-10.4) fL Neut % (Auto) % Lymph % (Auto) % Metcalfe % (Auto) % Eos % (Auto) % Baso % (Auto) % Neut # (Auto) (1.8-7.7) 10^3/u L Lymph # (Auto) (0.8-4.8) 10^3/u L Metcalfe # (Auto) (0.2-0.9) 10^3/u L Eos # (Auto) (0.0-0.8) 10^3/u L Baso # (Auto) (0.0-0.1) 10^3/u L Nucleated RBC % (a uto) % Nucleated RBCs # /100WBC Sodium (136-145) mmol/L Potassium (3.5-5.1) mmol/L Chloride (98-107) mmol/L Carbon Dioxide (22-29) mmol/L Anion Gap (5-19) BUN (8-23) mg/dL Creatinine (0.5-0.9) mg/dL GFR Calculation Glucose (65-115) mg/dL Calculated Osmolal ity (285-295) mOsm/k g Lactic Acid (0.5-2.2) mmol/L Lactic Acid (Sepsi s) 1.7 (0.5-2.2) mmol/L Calcium (8.5-10.5) mg/dL Total Bilirubin (0.15-1.2) mg/dL AST (0-32) U/L ALT (0-33) U/L Alkaline Phosphata se (35-105) IU/L Total Protein (6.6-8.7) g/dL Albumin (3.5-5.2) g/dL Globulin (1.3-4.6) g/dL Urine Color (Yellow) Urine Appearance (CLEAR) Urine pH (5-7) Ur Specific Gravit y (1.005-1.030) Urine Protein (Negative) Urine Glucose (UA) (Normal) Urine Ketones (Negative) Urine Blood (Negative) Urine Nitrate (Negative) Urine Bilirubin (Negative) Urine Urobilinogen (Negative) mg/dL Ur Leukocyte Sharonda ase (Negative) Urine RBC (0-2) /hpf Urine WBC (0-5) /hpf Ur Squamous Epith Cells (0-5) /hpf Amorphous Sediment Urine Bacteria (NONE) /hpf Nasal/Oral COVID-1 9 PCR SARS-CoV-2 Ag (Rap id) (Negative) Discharge Plan Discharge Patient Disposition: Home Clinical Impression: Cystitis, Medication side effect, Dementia Condition: Stable Prescriptions: New Macrobid 100 mg capsule 100 mg PO BID 7 Days Qty: 14 RF: 0 No Action nitroglycerin [Nitrostat] 0.4 mg tablet, sublingual 0.4 mg SUBLINGUAL Q5M PRN (Reason: Chest Pain) RF: 0 carvedilol 25 mg tablet 25 mg PO BID RF: 0 gabapentin 300 mg capsule 300 mg PO BEDTIME RF: 0 isosorbide mononitrate 60 mg tablet extended release 24 hr 60 mg PO DAILY RF: 0 multivitamin Tablet 1 tab PO QAM RF: 0 lovastatin 40 mg tablet 80 mg PO BEDTIME RF: 0 quetiapine 25 mg tablet 25 mg PO BEDTIME RF: 0 tramadol 50 mg tablet 50 mg PO Q6H PRN (Reason: Pain) RF: 0 warfarin 5 mg tablet See Rx Instructions .ROUTE .COMPLEX RF: 0 lisinopril 20 mg tablet 20 mg PO BID RF: 0 alprazolam 0.25 mg tablet 0.25 mg PO BEDTIME PRN (Reason: isomnia) RF: 0 pantoprazole 20 mg tablet,delayed release (DR/EC) 20 mg PO BEDTIME RF: 0 sennosides 8.6 mg tablet 17.2 mg PO BEDTIME PRN (Reason: Constipation) RF: 0 furosemide 40 mg tablet See Rx Instructions .ROUTE .COMPLEX Qty: 135 RF: 3 potassium chloride 20 mEq tablet extended release See Rx Instructions .ROUTE .COMPLEX Qty: 135 RF: 3 diltiazem HCl 240 mg capsule,extended release 24hr 240 mg PO QAM RF: 0 iron 325 mg (65 mg iron) Tablet 325 mg PO QAM RF: 0 methylprednisolone 4 mg tablets,dose pack See Rx Instructions .ROUTE .COMPLEX RF: 0 Discharge Orders: Discharge ED (Routine); Ordered 12/17/20 Ordered By: Domo Herrera Referrals: Rain Leroy APN [Primary Care Provider] - Patient Instructions: Opioid Safety Coding Level of Care Code ED Mixer Foam Rubber for Yessi Herrera
--- NOTE | 2020-12-17 10:32 | PC.PHAR ---
pts son states he takes care of the pts medications-pts son states the pt finished day 4 of the medrol dose hitesh last night pt still had 2 days left-pts son states the pt should take the lasix and kcl twice today-pts son states the pt takes warfarin 2.5mg po daily@12:00 on mon,,tue,,tue,and sat 5mg po daily@12 on tuesday-rx filled on 11/25/20 5mg daily -pts son states the pt takes imdur but is unsure if the pt takes in the am or pm-notes are made in the pharmacy comments
[2020-12-17 10:50] LABS: Basophils % 0.3 %; Hematocrit 48.2 % (37.0-47.0); Hemoglobin 15.6 g/dL (11.5-15.3); Lymphocytes # 1.1 10^3/uL (0.8-4.8); Lymphocytes % 9.6 %; Mean Corpuscular HGB Conc 32.4 g/dL (30.0-36.0); Mean Corpuscular Volume 95.8 fl (81-99); Mean Platelet Volume 10.8 fL (7.4-10.4); Monocytes % 8.7 %; Neutrophils # 9.29 10^3/uL (1.8-7.7); Neutrophils % 79.7 %; Nucleated Red Blood Cells % 0.3 %; Platelet Count 172 10^3/cmm (130-400); Red Blood Count 5.03 10^6/uL (4.1-5.3); Red Cell Distribution Width 15.7 % (12.1-15.1); White Blood Count 11.7 10^3/uL (4.0-10.0)
[2020-12-17 11:06] LABS: Alanine Aminotransferase 59 U/L (0-33); Albumin Level 4.4 g/dL (3.5-5.2); Alkaline Phosphatase 101 IU/L (35-105); Blood Urea Nitrogen 31 mg/dL (8-23); Calcium 9.5 mg/dL (8.5-10.5); Carbon Dioxide 25 mmol/L (22-29); Chloride 99 mmol/L (98-107); Globulin 2.9 g/dL (1.3-4.6); Glucose 263 mg/dL (65-115); Lactic Sepsis W/Reflex 2.8 mmol/L (0.5-2.2); Osmolality Calculated 304 mOsm/kg (285-295); Sodium 139 mmol/L (136-145); Total Bilirubin 1.2 mg/dL (0.15-1.2); Total Protein 7.3 g/dL (6.6-8.7)
[2020-12-17 11:08] VITALS: BP 124/90; PULSE 94; RESP 15; O2SAT 95
[2020-12-17 11:11] LABS: Anion Gap 18.7 (5-19); Aspartate Amino Transferase 48 U/L (0-32); Potassium 3.7 mmol/L (3.5-5.1)
[2020-12-17 11:14] LABS: Urine Appearance Clear (CLEAR); Urine Color Yellow (Yellow)
[2020-12-17 11:15] LABS: Add Urine Culture? Yes; Add Urine Microscopic? YES; Bacteria Urine 4+ /hpf; Bilirubin Urine Neg (Negative); Blood Urine 3+ (Negative); Glucose Urine UA Norm (Normal); Ketones Urine Negative (Negative); Leukocyte Esterase Urine Negative (Negative); Nitrate Urine Negative (Negative); Protein Urine 2+ (Negative); RBC Urine 15-25 /hpf (0-2); Urobilinogen Urine Neg (Negative); pH Urine 5 (5-7)
[2020-12-17 11:22] LABS: SARS Covid-2 Antigen Negative (Negative)
[2020-12-17] MEDS: sodium chloride 0.9% 1,000 ML 999 ML IV (11:34)
[2020-12-17] MEDS: cefTRIAXone 1,000 MG in sodium chloride 0.9% (plus) 50 ML 100 MG IV (11:34)
[2020-12-17 11:39] VITALS: BP 153/67; PULSE 70; RESP 18; O2SAT 90
[2020-12-17 12:34] LABS: Reflex Lactate Order REFLEX LACTIC ORDERD
[2020-12-17 13:23] LABS: Lactic Acid level (Lactate) 1.7 mmol/L (0.5-2.2)
[2020-12-17 14:38] VITALS: BP 168/91; PULSE 73; RESP 16; O2SAT 90
[2020-12-18 15:33] LABS: Coronavirus Test Green County Not Detected
== END 2020-12-17 16:01 | disposition home or self-care (01) ==
PROVIDERS: Emergency Provider Family Medicine; PCP Nurse Practitioner
DX: N30.90 Cystitis, unspecified without hematuria (principal); F03.90 Unspecified dementia, unspecified severity, without behavioral disturbance, psychotic disturbance, mood disturbance, and anxiety; T38.0X5A Adverse effect of glucocorticoids and synthetic analogues, initial encounter; I48.91 Unspecified atrial fibrillation; I25.10 Atherosclerotic heart disease of native coronary artery without angina pectoris; E78.5 Hyperlipidemia, unspecified; Z79.01 Long term (current) use of anticoagulants; Z95.0 Presence of cardiac pacemaker
CPT/HCPCS: 70450; 71045; 80053; 81001; 83605; 85025; 87086; 87426; 87635; 93005; 96365; 99284; J0696; J7030

== ENCOUNTER → 2021-11-27 09:21 | Outpatient (BNVA) | payer MEDICARE, MEDICAID, SELFPAY | PROVIDERS: PCP Nurse Practitioner Family; Visit Provider Internal Medicine Cardiovascular Disease | DX: Z45.010 Encounter for checking and testing of cardiac pacemaker pulse generator [battery] (principal) | CPT/HCPCS: 93279 ==

== ENCOUNTER → 2022-04-07 12:08 | Outpatient (BNVA) | payer MEDICARE, MEDICAID, SELFPAY | PROVIDERS: PCP Nurse Practitioner Family; Visit Provider Internal Medicine Cardiovascular Disease | DX: R06.02 Shortness of breath (principal); I25.10 Atherosclerotic heart disease of native coronary artery without angina pectoris; Z95.0 Presence of cardiac pacemaker; I48.11 Longstanding persistent atrial fibrillation; E78.2 Mixed hyperlipidemia | CPT/HCPCS: 80048; 83880; 99214 ==

== ENCOUNTER 2022-06-13 06:35 | Emergency (ER) | payer MEDICARE, MEDICAID, SELFPAY ==
[2022-06-13 06:38] VITALS: BP 135/66; PULSE 82; RESP 18; TEMP 36.8; O2SAT 96; BMI 25.4
--- NOTE | 2022-06-13 06:50 | ED_ITS ---
HPI - Fall General: Chief Complaint: Fall Stated Complaint: FALL Time Seen by Provider: 06/13/22 06:39 History of Present Illness: 82-year-old female with fall today. She states to me that she normally walks with a walker but attempted to walk without her walker at 530 this morning. She lost her balance in her home and fell to the ground. No head strike, loss consciousness, preceding chest pain or shortness of breath. son who was staying with her to care for her heard the fall and came to her room to help her to the bed and into the couch. He called an ambulance because she has been progressively more weak over the last month or so and falling repeatedly at home. She refused to go to a physician for evaluation. She has a past medical history reported by the son of atrial fibrillation on warfarin, rheumatoid and osteoarthritis, and unknown pulmonary pathology on albuterol inhaler at home. Never smoker. Previous surgical history of lumpectomy and thyroidectomy, and pacemaker placement. Over the last week she has been only taking small bites of food and drinking small sips of water. Patient states she has tenderness in her hips bilaterally and her left side where she fell about the ribs. Denies extremity tenderness, UTI symptoms, shortness of breath or chest pain currently. Associated symptoms-after fall: Reports chest pain; Denies abdominal pain, headache(s) or neck pain Review of Systems General: Reports: 10 or more systems reviewed and unremarkable except in HPI and below Const: Denies: fever(s) or chills Eyes: Denies: change in vision or blurry vision ENMT: Denies: throat pain or hoarseness Card: Reports: chest pain; Denies: palpitations Resp: Denies: dyspnea or productive cough GI: Denies: abdominal pain or nausea : Reports: flank pain; Denies: difficulty voiding Musc: Denies: neck pain or back pain Skin/Breast: Denies: rash or pruritus Neuro: Reports: weakness in extremities; Denies: headache(s) or numbness in extremities Endo: Denies: polyuria or polydipsia Liam/Lymph: Reports: easy bruising and easy bleeding; Denies: petechiae Physical Exam Const: COMMON NORMALS: no acute distress GENERAL APPEARANCE: cooperative, disheveled and frail appearing HENMT: COMMON NORMALS: normocephalic, atraumatic, external ears normal, EAC's normal, TM's normal bilaterally and Normal external nose present HEAD & SCALP: normocephalic and atraumatic FACE & SINUS: normal facial exam, sinuses nontender and face symmetric NOSE: Normal external nose present and Normal nares present GENERAL EAR: hearing grossly impaired EXTERNAL EAR: Yes external ears normal EXTERNAL AUDITORY CANAL: EAC's normal TYMPANIC MEMBRANE: TM's normal bilaterally TEETH & GINGIVA: Yes dentures THROAT: posterior oropharynx normal Eye: COMMON NORMALS: Equal, round and reactive pupils present (Right eye status post phacoemulsification) and EOMs intact bilaterally PUPIL: Yes Equal, round and reactive pupils present (Right eye status post phacoemulsification) Neck/C-Spine: COMMON NORMALS: full ROM and supple Chest: COMMONS NORMALS: normal inspection of the chest and normal palpation of entire chest wall (Aside from mild tenderness palpation with lateral rib squeeze) Resp: COMMON NORMALS: normal respiratory effort and No retractions Cardio: COMMON NORMALS: regular rate RATE: regular rate GI: COMMON NORMALS: Normal to inspection, nondistended, normoactive bowel sounds present, Soft to palpation and non-tender PALPATION: Yes Soft to palpation OTHER: Tenderness palpation of right hip without overlying skin changes. States left hip is tender when rolled. Pelvis noncompressible. : COMMON NORMALS: Yes no CVA tenderness, Yes normal external appearance and Yes normal appearance of the vagina BLADDER/KIDNEY EXAM: Yes no CVA tend erness Back/Pelvis: COMMON NORMALS: no CVA tenderness Course Vital Signs: Vital signs: Vital Signs Temperature 98.3 F 06/13/22 06:38 Pulse Rate 82 06/13/22 06:38 Respiratory Rate 18 06/13/22 06:38 Blood Pressure 135/66 06/13/22 06:38 Pulse Oximetry 96 06/13/22 06:38 Oxygen Delivery Me thod 06/13/22 06:38 MDM - Fall Medical Decision Making 82-year-old female on warfarin status post fall. Vitals nonactionable, although an elderly patient pulse of 82 may indicate distress. No hypoxia or hypotension. Considering traumatic injuries of the pelvis and ribs, intra-a bdominal or intrathoracic injuries, intracranial hemorrhage, pulmonary contusion, rib fracture, electrolyte derangements, symptomatic anemia, UTI precipitating falls. Labs returned evidencing CKD and elevated INR from goal for atrial fibrillation. Risk benefits discussion had with son about continuation of the warfarin and conclusion as reach was that we will reduce INR by skipping dose today and resuming tomorrow and following up with regular doctor for INR checks and further discussions about whether or not to stop the anticoagulation. Additionally imaging nonactionable without acute intervenable findings. Medical Records Records not available, [facility] patient and we low Lab Data 06/13/22 08:40 06/13/22 08:[address] 06/13/22 06:51 IMPRESSION: No acute intracranial abnormality. Chest/Abdomen/Pelvis CT 06/13/22 06:53 IMPRESSION: 1. Imaging findings of pulmonary congestion. Pneumonia should be excluded clinically. 2. Ggvb-as-origcdpo cardiomegaly. 3. Small pericardial effusion. IMPRESSION: 1. No acute injury in the abdomen or pelvis. 2. Cirrhotic liver. COMMENTS: Consistent with the [employer]'s Incidental Findings Committee white paper (J Am Earlene Radiol 2018): Any incidental renal lesion less than 1 cm or classified as too small to characterize, or any incidental cystic renal lesion characterized as simple-appearing, is likely benign. No follow-up imaging is recommended for these lesions per consensus recommendations based on imaging criteria. Laboratory Results WBC 7.3 10^3/uL (4.0-10.0) 06/13/22 08:40 RBC 4.80 10^6/uL (4.1-5.3) 06/13/22 08:40 Hgb 14.5 g/dL (11.5-15.3) 06/13/22 08:40 Hct 45.5 % (37.0-47.0) 06/13/22 08:40 MCV 94.8 fl (81-99) 06/13/22 08:40 MCH 30.2 pg (28.0-34.0) 06/13/22 08:40 MCHC 31.9 g/dL (30.0-36.0) 06/13/22 08:40 RDW 14.3 % (12.1-15.1) 06/13/22 08:40 Plt Count 218 10^3/cmm (130-400) 06/13/22 08:40 MPV 10.4 fL (7.4-10.4) 06/13/22 08:40 Neut % (Auto) 66.9 % 06/13/22 08:40 Lymph % (Auto) 23.5 % 06/13/22 08:40 [place] % (Auto) 7.2 % 06/13/22 08:40 Eos % (Auto) 1.2 % 06/13/22 08:40 Baso % (Auto) 0.4 % 06/13/22 08:40 Neut # (Auto) 4.89 10^3/uL (1.8-7.7) 06/13/22 08:40 Lymph # (Auto) 1.7 10^3/uL (0.8-4.8) 06/13/22 08:40 [place] # (Auto) 0.5 10^3/uL (0.2-0.9) 06/13/22 08:40 Eos # (Auto) 0.1 10^3/uL (0.0-0.8) 06/13/22 08:40 Baso # (Auto) 0.0 10^3/uL (0.0-0.1) 06/13/22 08:40 Nucleated RBC % (auto) 0 % 06/13/22 08:40 Nucleated RBCs # 0.0 /100WBC 06/13/22 08:40 PT 36.20 SECONDS (12.1-14.9) H 06/13/22 08:40 INR 3.46 (0.8-1.2) H 06/13/22 08:40 Sodium 134 mmol/L (136-145) L 06/13/22 08:40 Potassium 4.3 mmol/L (3.5-5.1) 06/13/22 08:40 Chloride 98 mmol/L (98-107) 06/13/22 08:40 Carbon Dioxide 24 mmol/L (22-29) 06/13/22 08:40 Anion Gap 16.3 (5-19) 06/13/22 08:40 BUN 51 mg/dL (8-23) H 06/13/22 08:40 Creatinine 2.1 mg/dL (0.5-0.9) H 06/13/22 08:40 GFR Calculation Not Reportable 06/13/22 08:40 Glucose 102 mg/dL (65-115) 06/13/22 08:40 Calculated Osmolality 292 mOsm/kg (285-295) 06/13/22 08:40 Lactate 1.7 mmol/L (0.5-2.2) 06/13/22 08:40 Calcium 9.5 mg/dL (8.5-10.5) 06/13/22 08:40 Total Bilirubin 0.6 mg/dL (0.15-1.2) 06/13/22 08:40 AST 250 U/L (0-32) H 06/13/22 08:40 ALT 174 U/L (0-33) H 06/13/22 08:40 Alkaline Phosphatase 84 U/L (35-105) 06/13/22 08:40 Total Protein 6.1 g/dL (6.6-8.7) L 06/13/22 08:40 Albumin 3.2 g/dL (3.5-5.2) L 06/13/22 08:40 Globulin 2.9 g/dL (1.3-4.6) 06/13/22 08:40 Urine Color Yellow (Yellow) 06/13/22 08:06 Urine Appearance Sl hazy (CLEAR) A 06/13/22 08:06 Urine pH 5 (5-7) 06/13/22 08:06 Ur Specific [place] 1.010 (1.005-1.030) 06/13/22 08:06 Urine Protein Neg (Negative) 06/13/22 08:06 Urine Glucose (UA) Norm (Normal) 06/13/22 08:06 Urine Ketones Negative (Negative) 06/13/22 08:06 Urine Blood 3+ (Negative) H 06/13/22 08:06 Urine Nitrate Negative (Negative) 06/13/22 08:06 Urine Bilirubin Neg (Negative) 06/13/22 08:06 Urine Urobilinogen Norm mg/dL (Negative) 06/13/22 08:06 Ur Leukocyte Esterase Trace (Negative) H 06/13/22 08:06 Urine RBC Rare /hpf (0-2) 06/13/22 08:06 Urine WBC Rare /hpf (0-5) 06/13/22 08:06 Ur Squamous Epith Cells 5-10 /hpf (0-5) H 06/13/22 08:06 Amorphous Sediment 1+ /hpf 06/13/22 08:06 Urine Bacteria Trace /hpf (NONE) 06/13/22 08:06 Discharge Plan Discharge Patient Disposition: Home, Self-Care w Plan Readm Clinical Impression: Fall Condition: Stable Prescriptions: No Action multivitamin Tablet 1 tab PO QAM quetiapine 25 mg tablet 25 mg PO BEDTIME furosemide 40 mg tablet 40 mg PO BID carvedilol 25 mg tablet 25 mg PO BID diltiazem HCl 240 mg capsule,extended release 24hr 240 mg PO QAM lisinopril 20 mg tablet 20 mg PO BID lovastatin 40 mg tablet 80 mg PO BEDTIME tramadol 50 mg tablet 50 mg PO Q6H PRN (Reason: Pain) pantoprazole 20 mg tablet,delayed release (DR/EC) 20 mg PO BEDTIME isosorbide mononitrate 60 mg tablet extended release 24 hr 60 mg PO DAILY@12 alprazolam 0.25 mg tablet 0.25 mg PO BEDTIME PRN (Reason: Sleep) iron 325 mg (65 mg iron) Tablet 325 mg PO QAM warfarin 5 mg tablet See Rx Instructions .ROUTE .COMPLEX Rx Instructions: 1/2 tab (2.5mg) po daily @12:00 except on sundays takes 1 tab (5mg) daily @12:00 Nitrostat 0.4 mg Tablet, Sublingual 0.4 mg SUBLINGUAL Q5M PRN (Reason: Chest Pain) Rx Instructions: do not exceed 3 doses per episode gabapentin 300 mg capsule 300 mg PO BEDTIME Ventolin HFA 90 mcg/actuation HFA aerosol inhaler 2 puff inhalation Q6H PRN (Reason: Shortness Of Breath) potassium chloride 20 mEq tablet extended release 20 meq PO BID Discharge Orders: Discharge ED (Routine); Ordered 06/13/22 Ordered By: Christofer Avila Coding Level of Care Code ED Special Procedure Technologist for Yessi Herrera
--- NOTE | 2022-06-13 06:51 | CTR_ITS ---
PROCEDURE INFORMATION: Exam: CT Head Without Contrast Exam date and time: 06/13/2022 7:06 AM Age: 82 years old Clinical indication: Injury or trauma; Fall; Blunt trauma (contusions or hematomas); Additional info: Fall on warfarin, eval trauma TECHNIQUE: Imaging protocol: Computed tomography of the head without contrast. Radiation optimization: All CT scans at this facility use at least one of these dose optimization techniques: automated exposure control; mA and/or kV adjustment per patient size (includes targeted exams where dose is matched to clinical indication); or iterative reconstruction. Other protocol: This patient has received [address] and 0 known cardiac nuclear medicine studies in the 12 months prior to the current study. COMPARISON: No relevant prior studies available. RADIATION DOSE METRICS: Total DLP (mGy-cm): 1099.49 FINDINGS: Brain: No hemorrhage. No edema, mass effect or midline shift. Periventricular and deep white matter hypodensities compatible with chronic microvascular ischemic changes. Chronic appearing basal ganglia lacunar infarcts. Cerebral ventricles: No ventriculomegaly. Paranasal sinuses: Visualized sinuses are unremarkable. No fluid levels. Mastoid air cells: No mastoid effusion. Bones/joints: No acute fracture. Soft tissues: Unremarkable. CT/CT head wo con* [id number] IMPRESSION: No acute intracranial abnormality.
--- NOTE | 2022-06-13 06:53 | CTR_ITS ---
PROCEDURE INFORMATION: Exam: CT Chest Without Contrast; Diagnostic Exam date and time: 06/13/2022 7:09 AM Age: 82 years old Clinical indication: Injury or trauma; Fall; Generalized; Blunt trauma (contusions or hematomas); Additional info: Trauama, fall, on warfarin, ttp bilat hips and ribs TECHNIQUE: Imaging protocol: Diagnostic computed tomography of the chest without contrast. Radiation optimization: All CT scans at this facility use at least one of these dose optimization techniques: automated exposure control; mA and/or kV adjustment per patient size (includes targeted exams where dose is matched to clinical indication); or iterative reconstruction. Other protocol: This patient has received [address] and 0 known cardiac nuclear medicine studies in the 12 months prior to the current study. COMPARISON: No relevant prior studies available. RADIATION DOSE METRICS: Total DLP (mGy-cm): 556.59 FINDINGS: Lungs: There is mosaic pattern of attenuation of the lungs in association with mild paraseptal thickening in a predominantly perihilar distribution, which in the setting of cardiomegaly suggestive of pulmonary congestion. Pneumonia should be excluded clinically. Pleural spaces: Unremarkable. No pneumothorax. No pleural effusion. Heart: Icvj-it-zfbhsjiyap enlarged heart. Coronary atherosclerotic calcifications seen. Small pericardial effusion noted. Lymph nodes: Multiple small mediastinal and bilateral hilar calcified lymph nodes noted, likely sequela of previous granulomatous disease. Small reactive lymph nodes seen. Vasculature: Mild diffuse atherosclerotic disease is present. Bones/joints: Degenerative changes of the spine seen. Soft tissues: Unremarkable. PROCEDURE INFORMATION: Exam: CT Abdomen And Pelvis Without Contrast Exam date and time: 06/13/2022 7:09 AM Age: 82 years old Clinical indication: Injury or trauma; Fall; Generalized; Blunt trauma (contusions or hematomas); Additional info: Trauama, fall, on warfarin, ttp bilat hips and ribs TECHNIQUE: Imaging protocol: Computed tomography of the abdomen and pelvis without contrast. Radiation optimization: All CT scans at this facility use at least one of these dose optimization techniques: automated exposure control; mA and/or kV adjustment per patient size (includes targeted exams where dose is matched to clinical indication); or iterative reconstruction. Other protocol: This patient has received [address] and 0 known cardiac nuclear medicine studies in the 12 months prior to the current study. COMPARISON: No relevant prior studies available. RADIATION DOSE METRICS: Total DLP (mGy-cm): 556.59 FINDINGS: Liver: The liver demonstrates volume redistribution and nodular contour, consistent with cirrhosis. No discrete mass lesion seen. Gallbladder and bile ducts: Normal. No calcified stones. No ductal dilation. Pancreas: Normal. No ductal dilation. Spleen: Normal. No splenomegaly. Adrenal glands: Normal. No mass. Kidneys and ureters: Bilateral renal cysts noted, the largest in the right upper kidney measuring 5.2 cm. Kidneys are otherwise unremarkable. Stomach and bowel: Unremarkable. No obstruction. No mucosal thickening. Appendix: No evidence of appendicitis. Intraperitoneal space: Unremarkable. No free air. No significant fluid collection. Vasculature: Mild diffuse atherosclerotic disease is present. Lymph nodes: Unremarkable. No enlarged lymph nodes. Urinary bladder: Unremarkable as visualized. Reproductive: The uterus is surgically absent. Bones/joints: Unremarkable. No acute fracture. Soft tissues: Unremarkable. CT/[place] [id number] IMPRESSION: 1. Imaging findings of pulmonary congestion. Pneumonia should be excluded clinically. 2. Oftx-ik-rkwvcxcn cardiomegaly. 3. Small pericardial effusion. IMPRESSION: 1. No acute injury in the abdomen or pelvis. 2. Cirrhotic liver. COMMENTS: Consistent with the [employer]'s Incidental Findings Committee white paper (J Am Earlene Radiol 2018): Any incidental renal lesion less than 1 cm or classified as too small to characterize, or any incidental cystic renal lesion characterized as simple-appearing, is likely benign. No follow-up imaging is recommended for these lesions per consensus recommendations based on imaging criteria.
--- NOTE | 2022-06-13 07:20 | ECG_ITS ---
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 Measurements Intervals [place] Rate: 71 P: 0 IN: 0 QRS: -46 QRSD: 176 T: 72 QT: 430 QTc: 470 Interpretive Statements ELECTRONIC VENTRICULAR PACEMAKER ABNORMAL RHYTHM ECG No previous ECG available for comparison Electronically Signed On 06-13-2022 22:03:29 [employer]NAGER [employer] by Gaviota Jimenez M.D. [id number]
[2022-06-13 08:50] LABS: Add Urine Microscopic? YES; Bilirubin Urine Neg (Negative); Blood Urine 3+ (Negative); Glucose Urine UA Norm (Normal); Ketones Urine Negative (Negative); Leukocyte Esterase Urine Trace (Negative); Nitrate Urine Negative (Negative); Protein Urine Neg (Negative); RBC Urine RARE /hpf (0-2); Urine Appearance SL Hazy (CLEAR); Urine Color Yellow (Yellow); Urobilinogen Urine Norm (Negative); WBC Urine RARE /hpf (0-5); pH Urine 5 (5-7)
[2022-06-13 08:51] LABS: Add Urine Culture? No; Amorphous Sediment Urine 1+ /hpf; Bacteria Urine TRACE /hpf
[2022-06-13 09:01] LABS: Basophils % 0.4 %; Eosinophils # 0.1 10^3/uL (0.0-0.8); Eosinophils % 1.2 %; Hematocrit 45.5 % (37.0-47.0); Hemoglobin 14.5 g/dL (11.5-15.3); Lymphocytes # 1.7 10^3/uL (0.8-4.8); Lymphocytes % 23.5 %; Mean Corpuscular HGB Conc 31.9 g/dL (30.0-36.0); Mean Corpuscular Hemoglobin 30.2 pg (28.0-34.0); Mean Corpuscular Volume 94.8 fl (81-99); Mean Platelet Volume 10.4 fL (7.4-10.4); Monocytes # 0.5 10^3/uL (0.2-0.9); Monocytes % 7.2 %; Neutrophils # 4.89 10^3/uL (1.8-7.7); Neutrophils % 66.9 %; Nucleated Red Blood Cells % 0 %; Platelet Count 218 10^3/cmm (130-400); Red Cell Distribution Width 14.3 % (12.1-15.1); White Blood Count 7.3 10^3/uL (4.0-10.0)
[2022-06-13 09:05] LABS: INR 3.46 (0.8-1.2)
[2022-06-13 09:20] LABS: Alanine Aminotransferase 174 U/L (0-33); Albumin Level 3.2 g/dL (3.5-5.2); Alkaline Phosphatase 84 U/L (35-105); Anion Gap 16.3 (5-19); Aspartate Amino Transferase 250 U/L (0-32); Blood Urea Nitrogen 51 mg/dL (8-23); Calcium 9.5 mg/dL (8.5-10.5); Carbon Dioxide 24 mmol/L (22-29); Chloride 98 mmol/L (98-107); Globulin 2.9 g/dL (1.3-4.6); Glucose 102 mg/dL (65-115); Lactate (Lactic Acid level) 1.7 mmol/L (0.5-2.2); Osmolality Calculated 292 mOsm/kg (285-295); Potassium 4.3 mmol/L (3.5-5.1); Sodium 134 mmol/L (136-145); Total Bilirubin 0.6 mg/dL (0.15-1.2); Total Protein 6.1 g/dL (6.6-8.7)
[2022-06-13 11:28] VITALS: BP 121/82; PULSE 87; RESP 16; O2SAT 95
== END 2022-06-13 11:31 | disposition home or self-care, planned readmission (81) ==
PROVIDERS: Emergency Provider General Practice
DX: Z04.3 Encounter for examination and observation following other accident (principal); Z79.01 Long term (current) use of anticoagulants; W18.30XA Fall on same level, unspecified, initial encounter
CPT/HCPCS: 36415; 70450; 71250; 74176; 80053; 81001; 83605; 85025; 85610; 93005; 99285

== ENCOUNTER 2022-06-16 17:10 | Inpatient (IN) | payer MEDICARE, MEDICAID, SELFPAY ==
[2022-06-16 17:18] VITALS: BP 104/57; PULSE 83; RESP 15; O2SAT 92
[2022-06-16 17:25] VITALS: BP 98/49; PULSE 70; O2SAT 100
--- NOTE | 2022-06-16 17:30 | CTR_ITS ---
PROCEDURE INFORMATION: Exam: CT Cervical Spine Without Contrast Exam date and time: 06/16/2022 6:00 PM Age: 82 years old Clinical indication: Injury or trauma; Fall; Blunt trauma; Additional info: Trauma/fall TECHNIQUE: Imaging protocol: Computed tomography of the cervical spine without contrast. Radiation optimization: All CT scans at this facility use at least one of these dose optimization techniques: automated exposure control; mA and/or kV adjustment per patient size (includes targeted exams where dose is matched to clinical indication); or iterative reconstruction. REPORTING DATA: Count of CT and Cardiac NM exams in prior 12 months: This patient has received 4 known CTs and 0 known cardiac nuclear medicine studies in the 12 months prior to the current study. COMPARISON: CT head wo con* [id number] 06/16/2022 5:56 PM RADIATION DOSE METRICS: Total DLP (mGy-cm): 161.67 FINDINGS: Bones/joints: The bones are diffusely demineralized. Near anatomic alignment. No acute fracture. Multilevel degenerative changes are present. No severe spinal canal stenosis. Lungs: Lung apices are normal. Soft tissues: Unremarkable. CT/CT cervical spin wo con* [id number] IMPRESSION: No acute osseous injury.
--- NOTE | 2022-06-16 17:33 | CTR_ITS ---
PROCEDURE INFORMATION: Exam: CT Head Without Contrast Exam date and time: 06/16/2022 5:56 PM Age: 82 years old Clinical indication: Injury or trauma; Fall; Blunt trauma (contusions or hematomas); Consciousness not specified; Additional info: Fall/ams TECHNIQUE: Imaging protocol: Computed tomography of the head without contrast. Radiation optimization: All CT scans at this facility use at least one of these dose optimization techniques: automated exposure control; mA and/or kV adjustment per patient size (includes targeted exams where dose is matched to clinical indication); or iterative reconstruction. REPORTING DATA: Count of CT and Cardiac NM exams in prior 12 months: This patient has received 2 known CTs and 0 known cardiac nuclear medicine studies in the 12 months prior to the current study. 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 No acute infarct. No hemorrhage. Stable involutional changes of the brain. No mass effect. Cerebral ventricles: No ventriculomegaly. Paranasal sinuses: Visualized sinuses are unremarkable. No fluid levels. Mastoid air cells: Visualized mastoid air cells are well aerated. Bones/joints: Unremarkable. No acute fracture. Soft tissues: Unremarkable. CT/CT head wo con* [id number] IMPRESSION: No acute intracranial abnormality.
--- NOTE | 2022-06-16 17:33 | XRR_ITS ---
PROCEDURE INFORMATION: Exam: XR Chest Exam date and time: 06/16/2022 7:15 PM Age: 82 years old Clinical indication: Cough; Additional info: Dyspnea/cough TECHNIQUE: Imaging protocol: Radiologic exam of the chest. Views: 1 view. COMPARISON: [place] [id number] 06/13/2022 7:09 AM FINDINGS: Tubes, catheters and devices: Right chest pacemaker is unchanged. Lungs: Mild pulmonary vascular congestion. Pleural spaces: Unremarkable. No pleural effusion. No pneumothorax. Heart/Mediastinum: Marked stable cardiomegaly. Bones/joints: Unremarkable. XR/XR chest 1V portable [id number] IMPRESSION: Mild pulmonary vascular congestion.
--- NOTE | 2022-06-16 17:34 | CTR_ITS ---
PROCEDURE INFORMATION: Exam: CT Abdomen And Pelvis Without Contrast Exam date and time: 06/16/2022 6:05 PM Age: 82 years old Clinical indication: Abdominal tenderness; Additional info: Abdominal pain TECHNIQUE: Imaging protocol: Computed tomography of the abdomen and pelvis without contrast. Radiation optimization: All CT scans at this facility use at least one of these dose optimization techniques: automated exposure control; mA and/or kV adjustment per patient size (includes targeted exams where dose is matched to clinical indication); or iterative reconstruction. REPORTING DATA: Count of CT and Cardiac NM exams in prior 12 months: This patient has received 4 known CTs and 0 known cardiac nuclear medicine studies in the 12 months prior to the current study. COMPARISON: [place] [id number] 06/13/2022 7:09 AM RADIATION DOSE METRICS: Total DLP (mGy-cm): 624.65 FINDINGS: Lungs: Hazy infiltrates in the bilateral lower lobes similar to the comparison CT chest. Heart: Marked four-chamber cardiomegaly is unchanged. Moderate pericardial effusion is unchanged. Liver: Mild liver surface nodularity suggesting cirrhosis is unchanged. Gallbladder and bile ducts: Normal. No calcified stones. No ductal dilation. Pancreas: Normal. No ductal dilation. Spleen: Normal. No splenomegaly. Adrenal glands: Normal. No mass. Kidneys and ureters: Bilateral renal cysts noted, the largest in the right upper kidney measuring 5.2 cm are unchanged. Stomach and bowel: Unremarkable. No obstruction. No mucosal thickening. Appendix: No evidence of appendicitis. Intraperitoneal space: Unremarkable. No free air. No significant fluid collection. Vasculature: Unremarkable. No abdominal aortic aneurysm. Lymph nodes: Unremarkable. No enlarged lymph nodes. Urinary bladder: Marked circumferential bladder wall thickening with haziness of the perivesicular fat. Reproductive: Hysterectomy is stable. Bones/joints: Unremarkable. No acute fracture. Soft tissues: Unremarkable. Other findings: Minimal nonspecific edema in the presacral space is stable. CT/CT abdomen pelvis wo con [id number] IMPRESSION: 1. New marked bladder wall thickening with haziness of the perivesicular fat suspicious for cystitis. 2. Stable mild liver cirrhosis. 3. Stable marked cardiomegaly with moderate pericardial effusion. Stable hazy infiltrates in the lung bases which may be due to pulmonary vascular congestion or pneumonia.
--- NOTE | 2022-06-16 17:44 | ED_ITS ---
Documented by User: Domo Herrera DO 06/17/22 06:11 HPI - Fall General: Chief Complaint: Fall Stated Complaint: FALL Time Seen by Provider: 06/16/22 17:13 Source: patient Mode of arrival: EMS History of Present Illness: 82-year-old female presents emergency room via EMS. She fell at home her son witnessed the fall fell around 4:00 today she fell backwards. She complaining some back pain. She is poorly responsive she does have a hearing aid she also has a history of Alzheimer's. When she i nitially arrived here the nurse that took the report from EMS reported her sats normal and she would not get any narcotics I had noticed while she we are about to see her oxygen sats have decreased into the mid 80s when I went in the room she had a good waveform at 87 to 88% and improved to the low 90s with application of 3 L by nasal cannula she cannot respond to simple questions. May be difficulty hearing her hearing aid is dislodged. She does have a c-collar in place she is on Coumadin there is no evidence of any acute fracture or did not roll her at this point to carefully examine the back of the head until we get her C-spine cleared. complaint: fall Onset (ago): hour(s) (1) Fall from: standing Fall witnessed: yes, by family Place fall occurred: home Loss of consciousness: None Prolonged down time: no Symptoms prior to fall: none Location of injury: head Associated symptoms-after fall: Reports confusion, neck pain and weakness Review of Systems General: Reports: ROS unobtainable due to mental status Musc: Reports: neck pain Neuro: Reports: confusion PFSH ED PFSH: Medical History (Updated 06/17/22 @ 00:33 by Dilan Severino MD) Atrial fibrillation CAD (coronary artery disease) Chronic anticoagulation CKD (chronic kidney disease) stage 3, GFR 30-59 ml/min Hyperlipidemia Hypothyroid Pacemaker Pericardial effusion Peripheral neuropathy SOB (shortness of breath) Surgical History (Updated 06/17/22 @ 00:22 by Dilan Severino MD) H/O: hysterectomy History of exploratory laparotomy History of throat surgery History of tracheostomy Hx of appendectomy Family History Father CAD (coronary artery disease) Cancer Brother CAD (coronary artery disease) Brother CAD (coronary artery disease) Sister CAD (coronary artery disease) Family/Other Diabetes Other Hyperlipidemia Hypertension Denies family history of Clotting disorder Dementia Chronic kidney disease (CKD) Suicide Anesthesia complication Bleeding disorder Lung disease Stroke Social History (Updated 06/17/22 @ 00:23 by Dilan Severino MD) Smoking and tobacco status: never smoked Alcohol intake: never Substance/Drug Use: never Caregiver/support person: Yes Household members: family Housing: Assisted Living Facility Physical Exam Const: COMMON NORMALS: no acute distress GENERAL APPEARANCE: cooperative and comfortable HENMT: COMMON NORMALS: normocephalic, atraumatic and hearing grossly normal bilaterally HEAD & SCALP: normocephalic and atraumatic Resp: COMMON NORMALS: normal respiratory effort, No retractions, No use of accessory muscles and clear to auscultation bilaterally AUSCULTATION: clear to auscultation bilaterally Cardio: COMMON NORMALS: regular rate, regular rhythm and No murmurs present (Cardio) RATE: regular rate RHYTHM: regular rhythm GI: COMMON NORMALS: Soft to palpation and No hepatosplenomegaly present AUSCULTATION: Yes normoactive bowel sounds PALPATION: Yes Soft to palpation, No Tenderness to palpation present (GI), No Guarding due to palpation present (GI) and Yes No hepatosplenomegaly present Extremity: COMMON NORMALS: normal to inspection, capillary refill normal, no clubbing, cyanosis or edema, no calf tenderness and no pedal edema Skin: COMMON NORMALS: no rashes or lesions noted GENERAL SKIN EXAM: no rashes or lesions noted Course Vital Signs: Vital signs: Vital Signs Temperature 97.6 F 06/17/22 04:00 Pulse Rate 69 06/17/22 04:00 Respiratory Rate 17 06/17/22 04:00 Blood Pressure 130/68 06/17/22 04:00 Pulse Oximetry 97 06/17/22 04:00 Oxygen Delivery Me thod 06/17/22 04:00 Oxygen Flow Rate 2 06/17/22 04:00 MDM - Fall Medical Decision Making Care signed out to Dr. Benavides I have told him at change of shift. See final notes for diagnosis and disposition. Patient presents here after a fall talk to the family she has had some general weakness as well she does have a UTI her scans here are normal she also has slightly increase in her creatinine with mildly elevated potassium as well at 6.1 we will give her insulin D50 and antibiotics and admitted at this time due to her weakness likely from her UTI. Lab Data 06/16/22 18:40 06/16/22 18:40 Radiology Impressions Cervical Spine CT 06/16/22 17:30 IMPRESSION: No acute osseous injury. Chest X-Ray 06/16/22 17:33 IMPRESSION: Mild pulmonary vascular congestion. Head CT 06/16/22 17:33 IMPRESSION: No acute intracranial abnormality. Abdomen/Pelvis CT 06/16/22 17:34 IMPRESSION: 1. New marked bladder wall thickening with haziness of the perivesicular fat suspicious for cystitis. 2. Stable mild liver cirrhosis. 3. Stable marked cardiomegaly with moderate pericardial effusion. Stable hazy infiltrates in the lung bases which may be due to pulmonary vascular congestion or pneumonia. Laboratory Results WBC 10.0 10^3/uL (4.0-10.0) 06/16/22 18:40 RBC 4.31 10^6/uL (4.1-5.3) 06/16/22 18:40 Hgb 13.5 g/dL (11.5-15.3) 06/16/22 18:40 Hct 41.9 % (37.0-47.0) 06/16/22 18:40 MCV 97.2 fl (81-99) 06/16/22 18:40 MCH 31.3 pg (28.0-34.0) 06/16/22 18:40 MCHC 32.2 g/dL (30.0-36.0) 06/16/22 18:40 RDW 14.9 % (12.1-15.1) 06/16/22 18:40 Plt Count 191 10^3/cmm (130-400) 06/16/22 18:40 MPV 11.5 fL (7.4-10.4) H 06/16/22 18:40 Neut % (Auto) 80.5 % 06/16/22 18:40 Lymph % (Auto) 11.0 % 06/16/22 18:40 [place] % (Auto) 6.3 % 06/16/22 18:40 Eos % (Auto) 0.4 % 06/16/22 18:40 Baso % (Auto) 0.3 % 06/16/22 18:40 Neut # (Auto) 8.01 10^3/uL (1.8-7.7) H 06/16/22 18:40 Lymph # (Auto) 1.1 10^3/uL (0.8-4.8) 06/16/22 18:40 [place] # (Auto) 0.6 10^3/uL (0.2-0.9) 06/16/22 18:40 Eos # (Auto) 0.0 10^3/uL (0.0-0.8) 06/16/22 18:40 Baso # (Auto) 0.0 10^3/uL (0.0-0.1) 06/16/22 18:40 Nucleated RBC % (auto) 0 % 06/16/22 18:40 Nucleated RBCs # 0.0 /100WBC 06/16/22 18:40 PT 41.30 SECONDS (12.1-14.9) H 06/16/22 18:40 INR 4.10 (0.8-1.2) H 06/16/22 18:40 Sodium 130 mmol/L (136-145) L 06/16/22 18:40 Potassium 6.1 mmol/L (3.5-5.1) H 06/16/22 18:40 Chloride 98 mmol/L (98-107) 06/16/22 18:40 Carbon Dioxide 22 mmol/L (22-29) 06/16/22 18:40 Anion Gap 16.1 (5-19) 06/16/22 18:40 BUN 72 mg/dL (8-23) H 06/16/22 18:40 Creatinine 2.9 mg/dL (0.5-0.9) H 06/16/22 18:40 GFR Calculation Not Reportable 06/16/22 18:40 Glucose 135 mg/dL (65-115) H 06/16/22 18:40 Calculated Osmolality 293 mOsm/kg (285-295) 06/16/22 18:40 Calcium 8.7 mg/dL (8.5-10.5) 06/16/22 18:40 Total Bilirubin 0.7 mg/dL (0.15-1.2) 06/16/22 18:40 AST 170 U/L (0-32) H 06/16/22 18:40 ALT 164 U/L (0-33) H 06/16/22 18:40 Alkaline Phosphatase 88 U/L (35-105) 06/16/22 18:40 Total Protein 5.9 g/dL (6.6-8.7) L 06/16/22 18:40 Albumin 3.2 g/dL (3.5-5.2) L 06/16/22 18:40 Globulin 2.7 g/dL (1.3-4.6) 06/16/22 18:40 Lipase 12 U/L (13-60) L 06/16/22 18:40 Urine Color Yellow (Yellow) 06/16/22 18:58 Urine Appearance Hazy (CLEAR) A 06/16/22 18:58 Urine pH 5 (5-7) 06/16/22 18:58 Ur Specific [place] 1.010 (1.005-1.030) 06/16/22 18:58 Urine Protein 1+ (Negative) H 06/16/22 18:58 Urine Glucose (UA) Norm (Normal) 06/16/22 18:58 Urine Ketones Negative (Negative) 06/16/22 18:58 Urine Blood 3+ (Negative) H 06/16/22 18:58 Urine Nitrate Positive (Negative) H 06/16/22 18:58 Urine Bilirubin Neg (Negative) 06/16/22 18:58 Urine Urobilinogen Neg mg/dL (Negative) 06/16/22 18:58 Ur Leukocyte Esterase 1+ (Negative) H 06/16/22 18:58 Urine RBC 5-10 /hpf (0-2) H 06/16/22 18:58 Urine WBC 25-40 /hpf (0-5) H 06/16/22 18:58 Ur Squamous Epith Cells Rare /hpf (0-5) 06/16/22 18:58 Amorphous Sediment Not Reportable 06/16/22 18:58 Urine Bacteria 2+ /hpf (NONE) H 06/16/22 18:58 Discharge Plan Discharge Patient Disposition: Admitted As Inpatient Admit Provider: Dilan Severino Clinical Impression: Fall, Weakness, Acute cystitis, Hyperkalemia Condition: Stable Coding Level of Care Code ED Referral Clerk for Chg Fwd Documented by User: Binh Benavides MD 06/16/22 20:25 HPI - Fall General: Chief Complaint: Fall Stated Complaint: FALL Time Seen by Provider: 06/16/22 17:13 PFSH ED PFSH: Medical History (Updated 06/17/22 @ 00:33 by Dilan Severino MD) Atrial fibrillation CAD (coronary artery disease) Chronic anticoagulation CKD (chronic kidney disease) stage 3, GFR 30-59 ml/min Hyperlipidemia Hypothyroid Pacemaker Pericardial effusion Peripheral neuropathy SOB (shortness of breath) Surgical History (Updated 06/17/22 @ 00:22 by Dilan Severino MD) H/O: hysterectomy History of exploratory laparotomy History of throat surgery History of tracheostomy Hx of appendectomy Family History Father CAD (coronary artery disease) Cancer Brother CAD (coronary artery disease) Brother CAD (coronary artery disease) Sister CAD (coronary artery disease) Family/Other Diabetes Other Hyperlipidemia Hypertension Denies family history of Clotting disorder Dementia Chronic kidney disease (CKD) Suicide Anesthesia complication Bleeding disorder Lung disease Stroke Social History (Updated 06/17/22 @ 00:23 by Dilan Severino MD) Smoking and tobacco status: never smoked Alcohol intake: never Substance/Drug Use: never Caregiver/support person: Yes Household members: family Housing: Assisted Living Facility Course Vital Signs: Vital signs: Vital Signs Temperature 97.6 F 06/17/22 04:00 Pulse Rate 69 06/17/22 04:00 Respiratory Rate 17 06/17/22 04:00 Blood Pressure 130/68 06/17/22 04:00 Pulse Oximetry 97 06/17/22 04:00 Oxygen Delivery Me thod 06/17/22 04:00 Oxygen Flow Rate 2 06/17/22 04:00 MDM - Fall Medical Decision Making Care signed out to Dr. Benavides I have told him at change of shift. See final notes for diagnosis and disposition. Patient presents here after a fall talk to the family she has had some general weakness as well she does have a UTI her scans here are normal she also has slig htly increase in her creatinine with mildly elevated potassium as well at 6.1 we will give her insulin D50 and antibiotics and admitted at this time due to her weakness likely from her UTI. Lab Data 06/16/22 18:40 06/16/22 18:40 Radiology Impressions Cervical Spine CT 06/16/22 17:30 IMPRESSION: No acute osseous injury. Chest X-Ray 06/16/22 17:33 IMPRESSION: Mild pulmonary vascular congestion. Head CT 06/16/22 17:33 IMPRESSION: No acute intracranial abnormality. Abdomen/Pelvis CT 06/16/22 17:34 IMPRESSION: 1. New marked bladder wall thickening with haziness of the perivesicular fat suspicious for cystitis. 2. Stable mild liver cirrhosis. 3. Stable marked cardiomegaly with moderate pericardial effusion. Stable hazy infiltrates in the lung bases which may be due to pulmonary vascular congestion or pneumonia. Laboratory Results WBC 10.0 10^3/uL (4.0-10.0) 06/16/22 18:40 RBC 4.31 10^6/uL (4.1-5.3) 06/16/22 18:40 Hgb 13.5 g/dL (11.5-15.3) 06/16/22 18:40 Hct 41.9 % (37.0-47.0) 06/16/22 18:40 MCV 97.2 fl (81-99) 06/16/22 18:40 MCH 31.3 pg (28.0-34.0) 06/16/22 18:40 MCHC 32.2 g/dL (30.0-36.0) 06/16/22 18:40 RDW 14.9 % (12.1-15.1) 06/16/22 18:40 Plt Count 191 10^3/cmm (130-400) 06/16/22 18:40 MPV 11.5 fL (7.4-10.4) H 06/16/22 18:40 Neut % (Auto) 80.5 % 06/16/22 18:40 Lymph % (Auto) 11.0 % 06/16/22 18:40 [place] % (Auto) 6.3 % 06/16/22 18:40 Eos % (Auto) 0.4 % 06/16/22 18:40 Baso % (Auto) 0.3 % 06/16/22 18:40 Neut # (Auto) 8.01 10^3/uL (1.8-7.7) H 06/16/22 18:40 Lymph # (Auto) 1.1 10^3/uL (0.8-4.8) 06/16/22 18:40 [place] # (Auto) 0.6 10^3/uL (0.2-0.9) 06/16/22 18:40 Eos # (Auto) 0.0 10^3/uL (0.0-0.8) 06/16/22 18:40 Baso # (Auto) 0.0 10^3/uL (0.0-0.1) 06/16/22 18:40 Nucleated RBC % (auto) 0 % 06/16/22 18:40 Nucleated RBCs # 0.0 /100WBC 06/16/22 18:40 PT 41.30 SECONDS (12.1-14.9) H 06/16/22 18:40 INR 4.10 (0.8-1.2) H 06/16/22 18:40 Sodium 130 mmol/L (136-145) L 06/16/22 18:40 Potassium 6.1 mmol/L (3.5-5.1) H 06/16/22 18:40 Chloride 98 mmol/L (98-107) 06/16/22 18:40 Carbon Dioxide 22 mmol/L (22-29) 06/16/22 18:40 Anion Gap 16.1 (5-19) 06/16/22 18:40 BUN 72 mg/dL (8-23) H 06/16/22 18:40 Creatinine 2.9 mg/dL (0.5-0.9) H 06/16/22 18:40 GFR Calculation Not Reportable 06/16/22 18:40 Glucose 135 mg/dL (65-115) H 06/16/22 18:40 Calculated Osmolality 293 mOsm/kg (285-295) 06/16/22 18:40 Calcium 8.7 mg/dL (8.5-10.5) 06/16/22 18:40 Total Bilirubin 0.7 mg/dL (0.15-1.2) 06/16/22 18:40 AST 170 U/L (0-32) H 06/16/22 18:40 ALT 164 U/L (0-33) H 06/16/22 18:40 Alkaline Phosphatase 88 U/L (35-105) 06/16/22 18:40 Total Protein 5.9 g/dL (6.6-8.7) L 06/16/22 18:40 Albumin 3.2 g/dL (3.5-5.2) L 06/16/22 18:40 Globulin 2.7 g/dL (1.3-4.6) 06/16/22 18:40 Lipase 12 U/L (13-60) L 06/16/22 18:40 Urine Color Yellow (Yellow) 06/16/22 18:58 Urine Appearance Hazy (CLEAR) A 06/16/22 18:58 Urine pH 5 (5-7) 06/16/22 18:58 Ur Specific [place] 1.010 (1.005-1.030) 06/16/22 18:58 Urine Protein 1+ (Negative) H 06/16/22 18:58 Urine Glucose (UA) Norm (Normal) 06/16/22 18:58 Urine Ketones Negative (Negative) 06/16/22 18:58 Urine Blood 3+ (Negative) H 06/16/22 18:58 Urine Nitrate Positive (Negative) H 06/16/22 18:58 Urine Bilirubin Neg (Negative) 06/16/22 18:58 Urine Urobilinogen Neg mg/dL (Negative) 06/16/22 18:58 Ur Leukocyte Esterase 1+ (Negative) H 06/16/22 18:58 Urine RBC 5-10 /hpf (0-2) H 06/16/22 18:58 Urine WBC 25-40 /hpf (0-5) H 06/16/22 18:58 Ur Squamous Epith Cells Rare /hpf (0-5) 06/16/22 18:58 Amorphous Sediment Not Reportable 06/16/22 18:58 Urine Bacteria 2+ /hpf (NONE) H 06/16/22 18:58 EKG Data EKG 1: I personally reviewed and interpreted this EKG as follows: EKG interpretation date: 06/16/22 EKG interpretation time: 18:28 Interpretation: paced hr [address] or t wave abnormalities qrs 184 qtc 499 Discharge Plan Discharge Patient Disposition: Admitted As Inpatient Admit Provider: Dilan Severino Clinical Impression: Fall, Weakness, Acute cystitis, Hyperkalemia Condition: Stable Coding Level of Care Code ED Referral Clerk for Yessi Herrera
--- NOTE | 2022-06-16 18:28 | ECG_ITS ---
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 Measurements Intervals [place] Rate: 69 P: 0 CA: 0 QRS: -66 QRSD: 187 T: 97 QT: 479 QTc: 516 Interpretive Statements ELECTRONIC VENTRICULAR PACEMAKER Compared to ECG 06/13/2022 07:20:23 No significant changes Electronically Signed On 06-16-2022 22:51:06 ACCOUNTING ASSOCIATE by Amaury Lopez M.D. [id number]
[2022-06-16 18:59] LABS: Basophils % 0.3 %; Eosinophils % 0.4 %; Hematocrit 41.9 % (37.0-47.0); Hemoglobin 13.5 g/dL (11.5-15.3); Lymphocytes # 1.1 10^3/uL (0.8-4.8); Mean Corpuscular HGB Conc 32.2 g/dL (30.0-36.0); Mean Corpuscular Hemoglobin 31.3 pg (28.0-34.0); Mean Corpuscular Volume 97.2 fl (81-99); Mean Platelet Volume 11.5 fL (7.4-10.4); Monocytes # 0.6 10^3/uL (0.2-0.9); Monocytes % 6.3 %; Neutrophils # 8.01 10^3/uL (1.8-7.7); Neutrophils % 80.5 %; Nucleated Red Blood Cells % 0 %; Platelet Count 191 10^3/cmm (130-400); Red Blood Count 4.31 10^6/uL (4.1-5.3); Red Cell Distribution Width 14.9 % (12.1-15.1)
[2022-06-16 19:27] LABS: Alanine Aminotransferase 164 U/L (0-33); Albumin Level 3.2 g/dL (3.5-5.2); Alkaline Phosphatase 88 U/L (35-105); Anion Gap 16.1 (5-19); Aspartate Amino Transferase 170 U/L (0-32); Blood Urea Nitrogen 72 mg/dL (8-23); Calcium 8.7 mg/dL (8.5-10.5); Carbon Dioxide 22 mmol/L (22-29); Chloride 98 mmol/L (98-107); Globulin 2.7 g/dL (1.3-4.6); Glucose 135 mg/dL (65-115); Lipase 12 U/L (13-60); Osmolality Calculated 293 mOsm/kg (285-295); Potassium 6.1 mmol/L (3.5-5.1); Sodium 130 mmol/L (136-145); Total Bilirubin 0.7 mg/dL (0.15-1.2); Total Protein 5.9 g/dL (6.6-8.7)
[2022-06-16 19:27] LABS: Glucose Urine UA Norm (Normal); Ketones Urine Negative (Negative); Protein Urine 1+ (Negative); Urine Appearance Hazy (CLEAR); Urine Color Yellow (Yellow); pH Urine 5 (5-7)
[2022-06-16 19:28] LABS: Add Urine Culture? Yes; Add Urine Microscopic? YES; Bacteria Urine 2+ /hpf; Bilirubin Urine Neg (Negative); Blood Urine 3+ (Negative); Leukocyte Esterase Urine 1+ (Negative); Nitrate Urine Positive (Negative); Squamous Epithelial Cell Urine RARE /hpf (0-5); Urobilinogen Urine Neg (Negative); WBC Urine 25-40 /hpf (0-5)
[2022-06-16] MEDS: sodium chloride 0.9% 1,000 ML 999 ML IV (20:10)
[2022-06-16] MEDS: insulin regular-human 100 units/1 mL 10 UNIT IVP (20:11)
[2022-06-16] MEDS: cefTRIAXone 1,000 MG in sodium chloride 0.9% (plus) 50 ML 100 MG IV (20:11)
[2022-06-16 21:25] VITALS: BP 105/56; PULSE 70; RESP 16; O2SAT 97
[2022-06-16 21:38] VITALS: BP 106/52; PULSE 70; RESP 16; O2SAT 96
[2022-06-16 23:06] VITALS: BP 109/66; PULSE 69; RESP 15; TEMP 36.4; O2SAT 93
--- NOTE | 2022-06-16 23:37 | P.HP_ITS ---
Providers/Chief Complaint Admitting Physician: Dilan Severino MD Primary Care Provider: Joann Christianson APN Chief Complaint: FALL History of Present Illness History limitedly taken through the patient because of extreme hard of hearing. Rest of the history gathered through chart review, speaking to son over the phone and discussion with ER physician. Magy Hebert is a 81 year old female with past medical history of diastolic heart failure, CKD with baseline creatinine of around 1.5, atrial fibrillation on chronic anticoagulation with Coumadin, CAD, hyperlipidemia was brought into the ER today by the son because of recurrent episodes of falls for last 3 to 4 days along with poor oral intake, and weakness. As per the son complains of poor oral intake and weakness has been gradually getting worse over the last 1 to 2 weeks along with episodes of difficulty in breathing requiring higher oxygen supplementation especially on laying down and minimal exertion. Son is not able to provide any other review of the systems. After the patient he does not have any dysuria, diarrhea, abdominal pain but does complain of pain all over her legs mostly in bilateral feet along with occasional difficulty breathing. She denies any bleeding. Review of Systems General: Reports: 10 or more systems reviewed and unremarkable except in HPI and below Const: Denies: fever(s), chills, body aches, change in appetite, change in weight, malaise, night sweats, diaphoresis, change in sleep pattern, daytime sleepiness or snoring Eyes: Denies: change in vision, blurry vision, photophobia, eye discomfort or eye discharge ENMT: Denies: throat pain, enlarged tonsils, hoarseness, mouth pain, oral sores, dry mouth, tinnitus, nasal congestion or post nasal drip Card: Denies: chest pain, palpitations, irregular heart rhythm, edema, swelling of feet/ankles, lightheadedness, syncope, pre-syncope, dyspnea on exertion, orthopnea, leg pain with exertion or acrocyanosis Resp: Denies: dyspnea, productive cough, non-productive cough, wheezing, stridor, pain on inspiration, change in phlegm color, hemoptysis or chest congestion GI: Denies: abdominal pain, nausea, vomiting, hematemesis, coffee ground emesis, dysphagia, heartburn, diarrhea, constipation, bloating, GI cramping, change in bowel habits, pain on defecation, hematochezia or melena : Denies: flank pain, dysuria, urinary frequency, urinary urgency, urinary hesitancy, nocturia or hematuria Musc: Denies: neck pain, back pain, extremity pain, joint pain, joint swelling, joint redness, joint stiffness or limited range of motion Neuro: Denies: headache(s), numbness in extremities, weakness in extremities, sensory changes, lack of coordination, difficulty walking, frequent falls, dizziness, vertigo, confusion, Slurred speech present, difficulty communicating thoughts or seizure-like activity Psych: Denies: anxiety, depression, mood swings, panic attacks, hopelessness or irritability Endo: Denies: polyuria, polydipsia, tired all the time, cold intolerance, excessive sweating, flushing or heat intolerance Liam/Lymph: Denies: easy bruising or easy bleeding All/Imm: Denies: tongue swelling, facial swelling or acute wheezing Medications/Allergies Home Medications Medication Instructions Recorded Confirmed Last Taken Type carvedilol 25 mg tablet 25 mg PO BID 09/25/19 04/07/22 12/17/20 06:00 History gabapentin 300 mg capsule 300 mg PO BEDTIME 09/25/19 04/07/22 12/16/20 History isosorbide mononitrate 60 mg 60 mg PO DAILY 09/25/19 04/07/22 05/04/20 12:00 History tablet,extended release 24 hr lovastatin 40 mg tablet 80 mg PO BEDTIME 09/25/19 04/07/22 12/16/20 History multivitamin 1 tab PO QAM 09/25/19 04/07/22 12/17/20 History nitroglycerin 0.4 mg sublingual 0.4 mg sublingual Q5M PRN Chest 09/25/19 04/07/22 Unknown History tablet (Nitrostat) Pain quetiapine 25 mg tablet 25 mg PO BEDTIME 09/25/19 04/07/22 12/16/20 History tramadol 50 mg tablet 50 mg PO Q6H PRN Pain 09/25/19 04/07/22 12/17/20 History warfarin 5 mg tablet See Rx Instructions .Route .COMPLEX 09/25/19 04/07/22 12/16/20 History lisinopril 20 mg tablet 20 mg PO BID 03/31/20 04/07/22 12/17/20 06:00 History alprazolam 0.25 mg tablet 0.25 mg PO BEDTIME PRN isomnia 07/02/20 04/07/22 12/16/20 History pantoprazole 20 mg tablet,delayed 20 mg PO BEDTIME 07/02/20 04/07/22 12/16/20 History release sennosides 8.6 mg tablet 17.2 mg PO BEDTIME PRN Constipation 07/02/20 04/07/22 Unknown History diltiazem HCl 240 mg 240 mg PO QAM 12/17/20 04/07/22 12/17/20 06:00 History capsule,extended release 24 hr ferrous sulfate 325 mg (65 mg 325 mg PO QAM 12/17/20 04/08/22 12/17/20 History iron) tablet (iron) triamcinolone acetonide 0.025 % 1 applic topical TID 04/07/22 04/07/22 Unknown History topical cream furosemide 40 mg tablet 40 mg PO BID #135 tabs 04/09/22 Unknown Rx potassium chloride 20 mEq 20 meq PO BID #135 tabs 04/09/22 Unknown Rx tablet,extended release albuterol sulfate 90 mcg/actuation 2 puff inhalation Q6H PRN 06/13/22 06/13/22 Unknown History aerosol inhaler (Ventolin HFA) Shortness Of Breath alprazolam 0.25 mg tablet 0.25 mg PO BEDTIME PRN Sleep 06/13/22 06/13/22 Unknown History carvedilol 25 mg tablet 25 mg PO BID 06/13/22 06/13/22 06/12/22 History diltiazem HCl 240 mg 240 mg PO QAM 06/13/22 06/13/22 06/12/22 History capsule,extended release 24 hr ferrous sulfate 325 mg (65 mg 325 mg PO QAM 06/13/22 06/13/22 06/12/22 History iron) tablet (iron) furosemide 40 mg tablet 40 mg PO BID 06/13/22 06/13/22 06/12/22 History gabapentin 300 mg capsule 300 mg PO BEDTIME 06/13/22 06/13/22 06/12/22 History isosorbide mononitrate 60 mg 60 mg PO DAILY@12 06/13/22 06/13/22 06/12/22 History tablet,extended release 24 hr lisinopril 20 mg tablet 20 mg PO BID 06/13/22 06/13/22 06/12/22 History lovastatin 40 mg tablet 80 mg PO BEDTIME 06/13/22 06/13/22 06/12/22 History multivitamin 1 tab PO QAM 06/13/22 06/13/22 06/12/22 History nitroglycerin 0.4 mg sublingual 0.4 mg sublingual Q5M PRN Chest 06/13/22 06/13/22 Unknown History tablet (Nitrostat) Pain pantoprazole 20 mg tablet,delayed 20 mg PO BEDTIME 06/13/22 06/13/22 06/12/22 History release potassium chloride 20 mEq 20 meq PO BID 06/13/22 06/13/22 06/12/22 History tablet,extended release quetiapine 25 mg tablet 25 mg PO BEDTIME 06/13/22 06/13/22 06/12/22 History tramadol 50 mg tablet 50 mg PO Q6H PRN Pain 06/13/22 06/13/22 Unknown History warfarin 5 mg tablet See Rx Instructions .Route .COMPLEX 06/13/22 06/13/22 06/12/22 History Allergies Allergy/AdvReac Type Severity Reaction Status Date / Time hydrocodone Allergy Unknown unknown Verified 06/16/22 22:59 Penicillins Allergy Unknown unknown Verified 06/16/22 22:59 shellfish derived Allergy Unknown unknown Verified 06/16/22 22:59 PFSH Acute PFSH: Medical History (Updated 06/17/22 @ 00:33 by Dilan Severino MD) Atrial fibrillation CAD (coronary artery disease) Chronic anticoagulation CKD (chronic kidney disease) stage 3, GFR 30-59 ml/min Hyperlipidemia Hypothyroid Pacemaker Pericardial effusion Peripheral neuropathy SOB (shortness of breath) Surgical History (Updated 06/17/22 @ 00:22 by Dilan Severino MD) H/O: hysterectomy History of exploratory laparotomy History of throat surgery History of tracheostomy Hx of appendectomy Family History Father CAD (coronary artery disease) Cancer Brother CAD (coronary artery disease) Brother CAD (coronary artery disease) Sister CAD (coronary artery disease) Family/Other Diabetes Other Hyperlipidemia Hypertension Denies family history of Clotting disorder Dementia Chronic kidney disease (CKD) Suicide Anesthesia complication Bleeding disorder Lung disease Stroke Social History (Updated 06/17/22 @ 00:23 by Dilan Severino MD) Smoking and tobacco status: never smoked Alcohol intake: never Substance/Drug Use: never Caregiver/support person: Yes Household members: family Housing: Assisted Living Facility Vitals/I&O/Wt Last Vital Signs Pulse 70 06/16/22 21:38 Resp 16 06/16/22 21:38 BP 106/52 06/16/22 21:38 Pulse Ox 96 06/16/22 21:38 O2 Del Method 06/16/22 22:44 O2 Flow Rate 2 06/16/22 21:25 06/16/22 06/16/22 06/17/22 14:59 22:59 06:59 Intake Total 1100 / 1100 Output Total 400 / 400 Balance 700 / 700 Weight last 48 hrs Weight 70.896 kg Physical Exam Narrative: General: No acute distress, AO x3, on nasal cannula oxygen supplementation, extremely hard of hearing laying down with head of the bed elevated to 30 degrees HEENT: PERRLA, pupils bilaterally equal and reactive Chest: Normal vesicular breath sounds, bilateral fine crackles up to mid lungs, decreased air entry bilaterally in lower zones equal good air entry bilaterally CVS: S1-S2 irregularly irregular, pansystolic murmur at fourth intercostal left retrosternal region, no tachycardia, no gallops, no rubs Abdomen: Soft, nontender, no organomegaly, bowel sounds present Neuro: No focal deficits, no facial deformity, AO x3, power 5/5 in all limbs Data 06/16/22 18:40 06/16/22 18:40 A&P Assessment and plan (1) Weakness: (2) SOB (shortness of breath): (3) Acute cystitis: (4) Acute kidney injury superimposed on CKD: (5) Hyperkalemia: (6) Congestive heart failure: Qualifiers: Heart failure type: diastolic Heart failure chronicity: chronic Qualified Code(s): I50.32 - Chronic diastolic (congestive) heart failure (7) Supratherapeutic INR: (8) Atrial fibrillation: Qualifiers: Atrial fibrillation type: longstanding persistent Qualified Code(s): I48.11 - Longstanding persistent atrial fibrillation (9) Transaminitis: (10) CKD (chronic kidney disease) stage 3, GFR 30-59 ml/min: (11) Fall: (12) Chronic anticoagulation: (13) Goals of care, counseling/discussion: (14) Pericardial effusion: Plan 81-year-old lady with past medical history of pacemaker implantation, atrial fibrillation on chronic anticoagulation, CAD presents to the ER today because of recurrent falls, weakness, shortness of breath found to have JESSICA on CKD, hyperkalemia, congestive heart failure and acute cystitis. Weakness/fall: Most likely secondary to combination of congestive heart failure, acute cystitis and JESSICA on CKD. Shortness of breath: History of diastolic congestive heart failure. Last echocardiogram from 2020 shows an EF 50% with grade 3 diastolic dys function, moderate to severe TR, moderate biatrial enlargement, moderate MR, moderate aortic regurgitation with severe pulmonary hypertension with PASP of 38 mmHg and a small pericardial effusion. CT chest shows moderate pericardial effusion. We will repeat echocardiogram. IV Lasix 40 mg twice daily. Strict input output charting, daily weights. Dill catheter. Fluid restriction up to 1500 cc. Monitor electrolytes. Pneumonia at present less likely. Check procalcitonin, urine culture, urine Leg ionella, bacterial antigen. Acute cystitis: Patient not a reliable historian. UA concerning for UTI. For now continue with IV ceftriaxone. Follow-up blood cultures and urine culture. CT abdomen pelvis negative for obstructive nephropathy. Atrial fibrillation: Rate controlled. Takes carvedilol 25 mg twice daily and Cardizem 240 mg daily at home. Blood pressure soft. Hold off on carvedilol continue with Cardizem 60 mg every 6 hourly. Takes Coumadin at home. Supratherapeutic INR: INR around 4. Hold off on Coumadin. Check INR daily. No active signs of bleeding or anemia. JESSICA on CKD: Baseline creatinine around 1.4-1.6. Currently 2.9. Medical reconciliation done for nephrotoxic drugs. Hold off on lisinopril for now. Check urine lites, urine creatinine, urine eosinophils. CT abdomen ruled out obstructive nephropathy. Cannot rule out CRS. Lasix as above. Monitor BMP daily for now. Hyperkalemia: Telemetry. Already received D50/10 units insulin in the ER. Repeat BMP. Hypertension: Goal blood pressure less than 140/90 mmHg with mean over 65. Blood pressure on the softer side. Hold off on home dose of Imdur, carvedilol, lisinopril. Continue with Cardizem at home dose. Monitor blood pressures and uptitrate or restart home medications as possible. Continue other chronic medications including Xanax at bedtime, gabapentin 3 mg at bedtime, iron, statin Seroquel. CODE STATUS: Discussed in detail with patient's DPOA/son over the phone. As per inpatient note do not want any heroic measures to be kept alive. DNR/DNI. Protonix for PUD prophylaxis SCD for DVT prophylaxis, hold off on medical prophylaxis given supratherapeutic INR. Renal nondialysis diet with fluid restriction Discharge planning: Plan to discharge back to assisted living versus SNF depending on clinical progression. Attestations Medical Necessity Statement*: Admit for more than 2 midnights for management of weakness and shortness of breath leading to fall in setting of diastolic heart failure, acute cystitis, supratherapeutic INR and JESSICA on CKD and High Time for a total of 75 minutes, includes reviewing past or interval history, examining/interviewing patient, placing orders, counseling patient/family/other support, updating patient/family/other support, discussing plan of care with staff, communicating with other healthcare providers, documenting encounter and coordinating care Diagnoses Weakness R53.1 SOB (shortness of breath) R06.02 Acute cystitis N30.00 Acute kidney injury superimposed on CKD N17.9; N18.9 Hyperkalemia E87.5 Congestive heart failure I50.32 Heart failure type: diastolic Heart failure chronicity: chronic Supratherapeutic INR R79.1 Atrial fibrillation I48.11 Atrial fibrillation type: longstanding persistent Transaminitis R74.01 CKD (chronic kidney disease) stage 3, GFR 30-59 ml/min N18.30 Fall W19.XXXA Chronic anticoagulation Z79.01 Goals of care, counseling/discussion Z71.89 Pericardial effusion I31.39
[2022-06-16 23:43] VITALS: PULSE 70
[2022-06-17] VITALS (11 sets, daily range): BP systolic 114–146; BP diastolic 51–68; PULSE 69–84; RESP 14–26; TEMP 36.4–37.5; O2SAT 93–98
[2022-06-17] MEDS: dilTIAZem 60 mg Tablet PO ×4 (00:08→22:24)
[2022-06-17] MEDS: FUROsemide 10 mg/mL SDV 4mL 40 MG IVP ×2 (00:08→08:36)
[2022-06-17] MEDS: atorvastatin 40 mg Tablet PO ×2 (00:08→22:17)
[2022-06-17] MEDS: pantoprazole DR 40 mg Tablet 20 MG PO ×2 (00:08→22:16)
[2022-06-17 00:44] LABS: Anion Gap 18.9 (5-19); Blood Urea Nitrogen 65 mg/dL (8-23); Calcium 8.5 mg/dL (8.5-10.5); Carbon Dioxide 20 mmol/L (22-29); Chloride 103 mmol/L (98-107); Glucose 110 mg/dL (65-115); Osmolality Calculated 303 mOsm/kg (285-295); Potassium 4.9 mmol/L (3.5-5.1); Sodium 137 mmol/L (136-145)
[2022-06-17 00:55] LABS: Potassium, Radom Urine 72 mmol/L; Urine Creatinine 41 mg/dL (28-217); Urine Random Chloride 86 mmol/L; Urine Random Sodium 43 mmol/L
[2022-06-17 02:09] LABS: Eosinophil Urine No Eosinophils Seen; Urine Eosinophil Count 0 (0-0)
[2022-06-17 02:25] LABS: Iron 45 ug/dL (37-145); Total Iron Binding Capacity 173 mcg/dl; Unsaturated Iron Binding 128 ug/dL (112-347)
[2022-06-17 02:39] LABS: Procalcitonin 0.14 ng/mL (0-0.5); Vitamin B12 878 pg/mL (232-1245)
[2022-06-17 04:20] LABS: Folate Level > 20.0 ng/mL (4.8-37.3)
[2022-06-17 05:31] LABS: Basophils % 0.3 %; Eosinophils # 0.1 10^3/uL (0.0-0.8); Eosinophils % 0.7 %; Hematocrit 40.9 % (37.0-47.0); Hemoglobin 12.9 g/dL (11.5-15.3); Lymphocytes # 1.2 10^3/uL (0.8-4.8); Lymphocytes % 13.4 %; Mean Corpuscular HGB Conc 31.5 g/dL (30.0-36.0); Mean Corpuscular Hemoglobin 30.6 pg (28.0-34.0); Mean Corpuscular Volume 97.1 fl (81-99); Monocytes # 0.8 10^3/uL (0.2-0.9); Monocytes % 8.4 %; Neutrophils # 6.95 10^3/uL (1.8-7.7); Neutrophils % 76.4 %; Nucleated Red Blood Cells % 0 %; Platelet Count 180 10^3/cmm (130-400); Red Blood Count 4.21 10^6/uL (4.1-5.3); White Blood Count 9.1 10^3/uL (4.0-10.0)
[2022-06-17 05:45] LABS: INR 4.51 (0.8-1.2)
[2022-06-17 05:48] LABS: Estmated Average Glucose 137; Hemoglobin A1C 6.4 % (4.0-6.0)
[2022-06-17 05:58] LABS: Alanine Aminotransferase 150 U/L (0-33); Alkaline Phosphatase 79 U/L (35-105); Anion Gap 18.7 (5-19); Aspartate Amino Transferase 134 U/L (0-32); Blood Urea Nitrogen 65 mg/dL (8-23); Calcium 8.8 mg/dL (8.5-10.5); Carbon Dioxide 21 mmol/L (22-29); Chloride 105 mmol/L (98-107); Chol HDL Ratio 3.41 mg/dL (0.0-4.40); Cholesterol 126 mg/dL (0-200); Globulin 2.8 g/dL (1.3-4.6); Glucose 94 mg/dL (65-115); HDL Cholesterol 37 mg/dL (60-100); LDL Cholesterol Calculated 64 mg/dL (50-129); Osmolality Calculated 308 mOsm/kg (285-295); Potassium 4.7 mmol/L (3.5-5.1); Sodium 140 mmol/L (136-145); Total Bilirubin 0.6 mg/dL (0.15-1.2); Total Protein 5.8 g/dL (6.6-8.7); Triglycerides 126 mg/dL (0-150); VLDL Cholestrol Calculation 25 mg/dL (0-30)
[2022-06-17] MEDS: ferrous sulfate EC 325 mg Tablet PO (06:37)
[2022-06-17] MEDS: docusate sodium 100 mg Capsule PO ×2 (08:39→17:55)
--- NOTE | 2022-06-17 09:45 | P.PN_ITS ---
Subjective Subjective: Patient was seen this morning, she is getting fed by nursing staff at bedside she is alert to person, not place, not to time, she is tell me that she is in [place], denies any chest pain, no shortness of breath, Vitals/I&O/Wt Last Vital Signs Temp 98.2 F 06/17/22 07:52 Pulse 69 06/17/22 07:52 Resp 16 06/17/22 07:52 BP 114/65 06/17/22 07:52 Pulse Ox 98 06/17/22 07:52 O2 Del Method 06/17/22 07:52 O2 Flow Rate 2 06/17/22 07:32 06/16/22 06/17/22 06/17/22 22:59 06:59 14:59 Intake Total 1100 / 1100 700 / 1800 Output Total 400 / 400 800 / 1200 Balance 700 / 700 -100 / 600 Weight last 48 hrs Weight 64.002 kg Weight 70.896 kg Physical Exam Const: COMMON NORMALS: no acute distress and patient oriented x3 Resp: COMMON NORMALS: normal respiratory effort, No retractions, No use of accessory muscles and clear to auscultation bilaterally AUSCULTATION: clear to auscultation bilaterally Cardio: COMMON NORMALS: regular rate, regular rhythm, S1 normal heart sound present and S2 normal heart sound present RATE: regular rate RHYTHM: regular rhythm HEART SOUNDS: S1 normal heart sound present and S2 normal heart sound present GI: COMMON NORMALS: Normal to inspection, nondistended, normoactive bowel sounds present and non-tender Extremity: COMMON NORMALS: no pedal edema Neuro: COMMON NORMALS: patient oriented x3 Urinary Catheter Management: Dill Latex: Cath Placed During This Visit: yes Reason for Continuing Indwelling Catheter: Other Urinary Catheter Date of Insertion: 06/16/22 Urinary Catheter Time of Insertion: 23:39 Data 06/17/22 05:02 06/17/22 05:02 Micro: Microbiology 06/16/22 23:46 Blood Culture - Preliminary Blood SPECIMEN COLLECTED 06/16/22 23:48 Blood Culture - Preliminary Blood SPECIMEN COLLECTED A&P Assessment and plan (1) Weakness: (2) SOB (shortness of breath): (3) Acute cystitis: (4) Acute kidney injury superimposed on CKD: (5) Hyperkalemia: (6) Congestive heart failure: Qualifiers: Heart failure type: diastolic Heart failure chronicity: chronic Qualified Code(s): I50.32 - Chronic diastolic (congestive) heart failure (7) Supratherapeutic INR: (8) Atrial fibrillation: Qualifiers: Atrial fibrillation type: longstanding persistent Qualified Code(s): I48.11 - Longstanding persistent atrial fibrillation (9) Transaminitis: (10) CKD (chronic kidney disease) stage 3, GFR 30-59 ml/min: (11) Fall: (12) Chronic anticoagulation: (13) Goals of care, counseling/discussion: (14) Pericardial effusion: (15) Acute encephalopathy: Plan 81-year-old lady with past medical history of pacemaker implantation, atrial fibrillation on chronic anticoagulation, CAD presents to the ER today because of recurrent falls, weakness, shortness of breath found to have JESSICA on CKD, hyperkalemia, congestive heart failure and acute cystitis. Weakness/fall: Most likely secondary to combination of UTI, congestive heart failure, acute cystitis and JESSICA on CKD. Shortness of breath: History of diastolic congestive heart failure. Last echocardiogram from 2020 shows an EF 50% with grade 3 diastolic dysfunction, moderate to severe TR, moderate biatrial enlargement, moderate MR, moderate aortic regurgitation with severe pulmonary hypertension with PASP of 38 mmHg and a small pericardial effusion. CT chest shows moderate pericardial effusion. No hemodynamic compromise We will repeat echocardiogram. IV Lasix 40 mg changed to once daily Strict input output charting, daily weights. Dill catheter. Fluid restriction up to 1500 cc. Monitor electrolytes. Pneumonia a, CT abdomen does show hazy infiltrates at lung bases could be fluid could be pneumonia, nonetheless we will continue Rocephin, azithromycin Acute cystitis: Patient not a reliable historian. UA concerning for UTI. For now continue with IV ceftriaxone. Follow-up blood cultures and urine culture. CT abdomen pelvis negative for obstructive nephropathy. Does show cystitis Atrial fibrillation: Rate controlled. Takes carvedilol 25 mg twice daily and Cardizem 240 mg daily at home. Blood pressure soft. Hold off on carvedilol continue with Cardizem 60 mg every 6 hourly. Takes Coumadin at home. Supratherapeutic INR: INR around 4. Hold off on Coumadin. Check INR daily. No active signs of bleeding or anemia. CT evidence of liver cirrhosis, monitor JESSICA on CKD: Baseline creatinine around 1.4-1.6. Currently 2.9. Medical reconciliation done for nephrotoxic drugs. Hold off on lisinopril for now. Check urine lites, urine creatinine, urine eosinophils. CT abdomen ruled out obstructive nephropathy. Cannot rule out CRS. Lasix as above. Monitor BMP daily for now. Hyperkalemia: Telemetry. Already received D50/10 units insulin in the ER. Current potassium 4.7 Hypertension: Goal blood pressure less than 140/90 mmHg with mean over 65. Blood pressure on the softer side. Hold off on home dose of Imdur, carvedilol, lisinopril. Continue with Cardizem at home dose. Monitor blood pressures and uptitrate or restart home medications as possible. Continue other chronic medications including Xanax at bedtime, gabapentin 3 mg at bedtime, iron, statin Seroquel. CODE STATUS: Discussed in detail with patient's DPOA/son over the phone. As per inpatient note do not want any heroic measures to be kept alive. DNR/DNI. Protonix for PUD prophylaxis SCD for DVT prophylaxis, hold off on medical prophylaxis given supratherapeutic INR. Renal nondialysis diet with fluid restriction Discharge planning: Plan to discharge back to assisted living versus SNF depending on clinical progression. Plan for today continue Rocephin, azithromycin, monitor mentation, aspiration precautions, monitor INR, monitor for bleeding Attestations Medical Necessity Statement*: Patient requires hospitalization for UTI, pneumonia, supratherapeutic INR, fluid overload,, acute encephalopathy Coding Level of Care Code Acute Code for Chg Fwd Diagnoses Weakness R53.1 SOB (shortness of breath) R06.02 Acute cystitis N30.00 Acute kidney injury superimposed on CKD N17.9; N18.9 Hyperkalemia E87.5 Congestive heart failure I50.32 Heart failure type: diastolic Heart failure chronicity: chronic Supratherapeutic INR R79.1 Atrial fibrillation I48.11 Atrial fibrillation type: longstanding persistent Transaminitis R74.01 CKD (chronic kidney disease) stage 3, GFR 30-59 ml/min N18.30 Fall W19.XXXA Chronic anticoagulation Z79.01 Goals of care, counseling/discussion Z71.89 Pericardial effusion I31.39 Acute encephalopathy G93.40
--- NOTE | 2022-06-17 12:36 | PC.CHAP ---
Pastoral Care Encounter/Spiritual Assessment Type of Contact [] Declined pulper tender visit [] Patient/Family/Request visit [] Outpatient visit [] Follow-up visit [] Physician referral [] Code/Alert [x] Routine visit [] Staff referral [] Actively dying [] Patient sleeping [] Family support [] [] Out of room [] Palliative care [] [x] Receiving care in room [] Pre-surgical visit [] Trauma [] Long length of stay [] ICU visit [] Other: Relational/Emotional Strength [] Patient feels connected with others/family/visitors/staff [x] Distress [] Loneliness/isolation [] Abandonment Spirituality of Patient [x] Person of Chantell [] Attends Yazidi of their Chant[place] [] Believes in Prayer [] Reads Bible or Yazdanism materials [] There are Spiritual issues to be addressed Hrbp Interventions [x] Prayer [x] Active listening [x] Non-anxious presence [x] Spiritual/emotional support [] Crisis/trauma care [x] Spiritual counseling [] Bereavement support [] Provided bereavement packet [] Provided Bible/devotional materials [] Provided toy/stuffed animal, coloring book to patient or family member [] Provided Communion [] Anointing/[place] [] Salvation [x] Completed spiritual assessment [] Other: Impact on Illness or Injury [] Angry [] Fearful [x] Anxious [] Often cries [] Exhaustion [x] Unable to work [] Unable to attend advent [] Unable to walk/stand [] Unable to read [] Unable to drive [] Unable to eat/drink [] Unable to sleep [] Unable to be with family [] Patient intubated [] Other: Summary senior in and was unable to communicate about her health Time spent with patient 10 mins
--- NOTE | 2022-06-17 12:38 | PC.CHAP ---
Pastoral Care Encounter/Spiritual Assessment Type of Contact [] Declined comb fixer visit [] Patient/Family/Request visit [] Outpatient visit [] Follow-up visit [] Physician referral [] Code/Alert [x] Routine visit [] Staff referral [] Actively dying [] Patient sleeping [] Family support [] [] Out of room [] Palliative care [] [x] Receiving care in room [] Pre-surgical visit [] Trauma [] Long length of stay [] ICU visit [] Other: Relational/Emotional Strength [x] Patient feels connected with others/family/visitors/staff [] Distress [] Loneliness/isolation [] Abandonment Spirituality of Patient [x] Person of Chantell [] Attends Buddhist of their [place] [] Believes in Prayer [] Reads Bible or Yarsanism materials [] There are Spiritual issues to be addressed 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 [x] Prayer [x] Active listening [x] Non-anxious presence [x] Spiritual/emotional support [] Crisis/trauma care [x] Spiritual counseling [] Bereavement support [] Provided bereavement packet [] Provided Bible/devotional materials [] Provided toy/stuffed animal, coloring book to patient or family member [] Provided Communion [] Anointing/[place] [] Salvation [c] Completed spiritual assessment [] Other: Impact on Illness or Injury [] Angry [] Fearful [c] Anxious [] Often cries [] Exhaustion [] Unable to work [] Unable to attend roman catholic [] Unable to walk/stand [] Unable to read [] Unable to drive [] Unable to eat/drink [] Unable to sleep [] Unable to be with family [] Patient intubated [] Other: Summary in pain has a good attitude not sure when he can go home Time spent with patient 10 mins
[2022-06-17] MEDS: azithromycin 500 MG in sodium chloride 0.9% 250 ML 250 MG IV (14:25)
--- NOTE | 2022-06-17 20:36 | PC.NURSE ---
Patient A&Ox0, VSS at this time. Patient unable to answer simple questions, will say a few words; speech is clear, however does not make sense and patient rambles. Patient was able to perform weak handgrips but unable to follow commands to push/pull against nurse's hands with feet, perform [id number] or ivzq-an-foga tests. Bilateral anterior lungs auscultated clear, saturating in 90s on 2L. Unsure if this is baseline O2 usage or not. Bowel sounds present in all four quadrants. Patient has Dill catheter, light brown sediment noted but patent and draining at this time. Bruising is present on bilateral upper extremities as well as small wound on posterior left hand, which is covered by optifoam and dated/marked by ER staff. Patient stated that she hurt along lower rib cage and nurse instructed patient that she would bring something for pain. Patient unable to comprehend any nursing education at this time. TV was turned on for patient. Bed alarm was set, patient left with two side rails up, call light and bedside table within reach, and no further needs at this time.
[2022-06-17] MEDS: quetiapine 25 mg Tablet PO (22:16)
[2022-06-17] MEDS: gabapentin 300 mg Capsule PO (22:16)
[2022-06-17] MEDS: cefTRIAXone 1,000 MG in sodium chloride 0.9% (plus) 50 ML 100 MG IV (22:17)
[2022-06-17] MEDS: acetaminophen 325 mg Tablet 650 MG PO (22:17)
--- NOTE | 2022-06-17 22:57 | USCV_ITS ---
Hebert Magy Age: 81 Gender: F : 1940 Exam Date: 06/17/2022 01:12 Ordering Phys: Dilan Severino MD Technologist: ABELARDO Exam Location: [facility] [place] Indication: pericardial effusion, CHF BP: 106 / 52 HR: 69 Rhythm: Atrial fibrillation Technical Quality: Adequate MEASUREMENTS (Male / Female) Normal Values 2D ECHO LV Diastolic Diameter PLAX 3.8 cm 4.2 - 5.9 / 3.9 - 5.3 cm LV Systolic Diameter PLAX 2.3 cm IVS Diastolic Thickness 1.3 cm 0.6 - 1.0 / 0.6 - 0.9 cm IVS Systolic Thickness 1.8 cm LVPW Diastolic Thickness 1.4 cm 0.6 - 1.0 / 0.6 - 0.9 cm LVPW Systolic Thickness 2.3 cm LVOT Diameter 1.7 cm LV Ejection Fraction 2D Teich 72.4 % LV Ejection Fraction MOD 2C 68.7 % LV Ejection Fraction 2C AL 67.8 % LA Diameter 6.4 cm LA Width 6.4 cm LA Height 9.6 cm RA Width 4.6 cm RA Height 5.8 cm Aorta at Sinotubular Diameter 2.8 cm IVC Diameter 1.9 cm M-MODE Aortic Annulus Diameter 3.1 cm LA Ao Ratio MM 2.1 MV E Point Septal Separation 0.3 cm DOPPLER AV Peak Velocity 137.0 cm/s LVOT Peak Velocity 73.0 cm/s AV Area Cont Eq vti 1.4 cm squared AV Area Cont Eq pk 1.2 cm squared MV Area PHT 2.4 cm squared MV E' Velocity 65.5 cm/s Mitral E to MV E' Ratio 9.6 Mitral E to LV E' Lateral Ratio 7.4 Mitral E to LV E' Septal Ratio 13.7 TR Peak Velocity 323.4 cm/s TR Peak Gradient 41.8 mmHg TV Peak E Velocity 62.0 cm/s Right Atrial Pressure 15.0 mmHg Pulmonary Artery Systolic Pressu 56.8 mmHg PV Peak Velocity 73.0 cm/s RV Acceleration Time 0.1 s RV Ejection Time 0.3 s RV AcT/ET 0.2 FINDINGS Left Ventricle Normal left ventricular size and systolic function, EF 64 %. Mild left ventricular hypertrophy. No regional wall motion abnormalities. Right Ventricle The right ventricle is normal in size and function. Pacemaker wire in the right ventricle Right Atrium Moderately increased right atrial size. Pacemaker wire in the right atrium Left Atrium Moderately increased left atrial size. Mitral Valve Mild mitral annular calcification. Grade 1 mitral valve prolapse Aortic Valve Thickened aortic valve. Moderate aortic valve calcification. Mild to moderate aortic regurgitation Tricuspid Valve Tprxvrfr-ej-bqprzh tricuspid valve regurgitation. Moderate pulmonary hypertension with an estimated pulmonary artery peak systolic pressure of 57 mmHg Pulmonic Valve Pulmonic valve not well visualized. Pericardium Trivial pericardial effusion. Aorta Normal aortic annulus size. IVC Dilated IVC with decreased respiratory variation. CONCLUSIONS Normal left ventricular size and systolic function, EF 64 %. Mild left ventricular hypertrophy. No regional wall motion abnormalities. Moderate biatrial enlargement. Thickened aortic valve. Moderate aortic valve calcification. Mild to moderate aortic regurgitation Bqsqvmfb-rz-jfvqcx tricuspid valve regurgitation. Moderate pulmonary hypertension with an estimated pulmonary artery peak systolic pressure of 57 mmHg Mild mitral annular calcification. Grade 1 mitral valve prolapse. Trivial pericardial effusion. Comparison with the previous study is difficult because of the difference in the technical quality. Dr Gaviota Jimenez MD FAC (Electronically Signed) Final Date: 17 June 2022 17:48 S
[2022-06-18] VITALS (7 sets, daily range): BP systolic 128–137; BP diastolic 62–66; PULSE 70–100; RESP 15–25; TEMP 36.7; O2SAT 91–98; BMI 26.2
--- NOTE | 2022-06-18 01:10 | PC.NURSE ---
IV in right AC leaking and caused pain at site. IV was stopped and removed, intact upon removal. New 22 gauge started in anterior right forearm, patent and asymptomatic at this time.
--- NOTE | 2022-06-18 04:24 | PC.NURSE ---
DENT REMOVER left patient on bed echols for extended period of time and forgot about it. Nurse was informed once DENT REMOVER remembered patient was still on bedpan, and both staff members entered patient room. Bedpan was immediately removed, and patient's bottom was assessed by nurse. Bottom appeared red from outlines of bedpan, but skin was intact upon viewing. Patient did not appear to be in any apparent distress or pain. Patient was rearranged in bed, bed alarm reset.
[2022-06-18] MEDS: dilTIAZem 60 mg Tablet PO ×2 (05:37→20:53)
--- NOTE | 2022-06-18 05:43 | PC.NURSE ---
Dr Severino informed that patient refused ferrous this morning. No new orders received at this time.
[2022-06-18 05:48] LABS: Basophils # 0.1 10^3/uL (0.0-0.1); Basophils % 0.6 %; Eosinophils % 0.5 %; Hematocrit 40.8 % (37.0-47.0); Lymphocytes # 1.3 10^3/uL (0.8-4.8); Lymphocytes % 16.3 %; Mean Corpuscular HGB Conc 31.9 g/dL (30.0-36.0); Mean Corpuscular Hemoglobin 30.2 pg (28.0-34.0); Mean Corpuscular Volume 94.7 fl (81-99); Mean Platelet Volume 11.2 fL (7.4-10.4); Monocytes # 0.6 10^3/uL (0.2-0.9); Monocytes % 7.7 %; Neutrophils % 72.6 %; Nucleated Red Blood Cells % 0 %; Platelet Count 190 10^3/cmm (130-400); Red Blood Count 4.31 10^6/uL (4.1-5.3); Red Cell Distribution Width 14.8 % (12.1-15.1); White Blood Count 8.1 10^3/uL (4.0-10.0)
[2022-06-18 06:01] LABS: INR 3.31 (0.8-1.2)
[2022-06-18 06:15] LABS: Alanine Aminotransferase 130 U/L (0-33); Albumin Level 2.8 g/dL (3.5-5.2); Alkaline Phosphatase 85 U/L (35-105); Aspartate Amino Transferase 122 U/L (0-32); Blood Urea Nitrogen 61 mg/dL (8-23); Calcium 8.8 mg/dL (8.5-10.5); Carbon Dioxide 20 mmol/L (22-29); Chloride 104 mmol/L (98-107); Globulin 2.7 g/dL (1.3-4.6); Glucose 99 mg/dL (65-115); Magnesium 2.1 mg/dL (1.7-2.3); NT Pro B Type Natriuretic Pept 10048 pg/mL (0-450); Osmolality Calculated 303 mOsm/kg (285-295); Phosphorus 3.7 mg/dL (2.5-4.5); Sodium 138 mmol/L (136-145); Total Bilirubin 0.7 mg/dL (0.15-1.2); Total Protein 5.5 g/dL (6.6-8.7)
[2022-06-18 06:25] LABS: Anion Gap 17.7 (5-19); Potassium 3.7 mmol/L (3.5-5.1)
[2022-06-18] MEDS: haloperidol inj 5 mg/mL INJ 1 mL 1 MG IM (08:46)
[2022-06-18] MEDS: FUROsemide 10 mg/mL SDV 4mL 40 MG IVP (08:51)
[2022-06-18] MEDS: azithromycin 500 MG in sodium chloride 0.9% 250 ML 250 MG IV (08:52)
--- NOTE | 2022-06-18 09:05 | PC.NURSE ---
Dr. Vidal gave verbal orders while in with patient to give 1 mg IM Haldol due to patient being combative with staff. Patient is grabbing staff, squeezing hands and fingers of staff.
--- NOTE | 2022-06-18 09:06 | PC.NURSE ---
notified Dr. Vidal patient will not take any PO medications at this time. Haldol injection was given and will see if patient calms down. Dr. Germain stated to give a 1mg IM injection of Ativan if patient persist to be combative.
--- NOTE | 2022-06-18 09:32 | SUR.EXTENDED ---
pt is yelling out and confused
--- NOTE | 2022-06-18 11:00 | PM.PN ---
Subjective Subjective: Patient was seen this morning, she is quite agitated, is encephalopathic, she does not follow commands, Vitals/I&O/Wt Last Vital Signs Temp 98.1 F 06/18/22 04:00 Pulse 72 06/18/22 04:00 Resp 25 H 06/18/22 04:00 BP 137/62 06/18/22 04:00 Pulse Ox 97 06/18/22 04:00 O2 Del Method 06/18/22 08:00 O2 Flow Rate 2 06/18/22 04:00 06/17/22 06/18/22 06/18/22 22:59 06:59 14:59 Intake Total 1130 / 1250 530 / 1780 Output Total 1000 / 1000 800 / 1800 Balance 130 / 250 -270 / -20 Weight last 48 hrs Weight 60.895 kg Weight 64.002 kg Weight 70.896 kg Physical Exam Const: COMMON NORMALS: no acute distress EXAM LIMITATIONS: altered mental status ORIENTATION/CONSCIOUSNESS: Yes awake, Yes oriented to person and Yes confused; not oriented to place and not oriented to time Resp: COMMON NORMALS: normal respiratory effort, No retractions, No use of accessory muscles and clear to auscultation bilaterally AUSCULTATION: clear to auscultation bilaterally Cardio: COMMON NORMALS: regular rate, regular rhythm, S1 normal heart sound present and S2 normal heart sound present RATE: regular rate RHYTHM: regular rhythm HEART SOUNDS: S1 normal heart sound present and S2 normal heart sound present GI: COMMON NORMALS: Normal to inspection, nondistended, normoactive bowel sounds present and non-tender Extremity: COMMON NORMALS: no pedal edema Neuro: SENSORIUM/ORIENTATION: Yes oriented to person, No oriented to place and No oriented to time Urinary Catheter Management: Dill Latex: Cath Placed During This Visit: yes Reason for Continuing Indwelling Catheter: Other Urinary Catheter Date of Insertion: 06/16/22 Urinary Catheter Time of Insertion: 23:39 Data 06/18/22 05:23 06/18/22 05:23 Micro: Microbiology 06/16/22 23:46 Blood Culture - Preliminary Blood NEGATIVE TO DATE 06/16/22 23:48 Blood Culture - Preliminary Blood NEGATIVE TO DATE 06/16/22 23:10 MRSA Culture - Final Nose 06/16/22 23:32 Legionella Urinary Antigen - Final Urine,Voided 02/22/23 23:32 Bacterial Antigens - Final Urine Kidney A&P Assessment and plan (1) Weakness: (2) SOB (shortness of breath): (3) Acute cystitis: (4) Acute kidney injury superimposed on CKD: (5) Hyperkalemia: (6) Congestive heart failure: Qualifiers: Heart failure type: diastolic Heart failure chronicity: chronic Qualified Code(s): I50.32 - Chronic diastolic (congestive) heart failure (7) Supratherapeutic INR: (8) Atrial fibrillation: Qualifiers: Atrial fibrillation type: longstanding persistent Qualified Code(s): I48.11 - Longstanding persistent atrial fibrillation (9) Transaminitis: (10) CKD (chronic kidney disease) stage 3, GFR 30-59 ml/min: (11) Fall: (12) Chronic anticoagulation: (13) Goals of care, counseling/discussion: (14) Pericardial effusion: (15) Acute encephalopathy: Plan 81-year-old lady with past medical history of pacemaker implantation, atrial fibrillation on chronic anticoagulation, CAD presents to the ER today because of recurrent falls, weakness, shortness of breath found to have JESSICA on CKD, hyperkalemia, congestive heart failure and acute cystitis. Weakness/fall: Most likely secondary to combination of UTI, congestive heart failure, acute cystitis and JESSICA on CKD. Shortness of breath: History of diastolic congestive heart failure. Last echocardiogram from 2020 shows an EF 50% with grade 3 diastolic dysfunction, moderate to severe TR, moderate biatrial enlargement, moderate MR, moderate aortic regurgitation with severe pulmonary hypertension with PASP of 38 mmHg and a small pericardial effusion. CT chest shows moderate pericardial effusion. No hemodynamic compromise Normal left ventricular size and systolic function, EF 64 %. ?Mild left ventricular hypertrophy. No regional wall motion ?abnormalities. ?Moderate biatrial enlargement. Thickened aortic valve. Moderate ?aortic valve calcification.? Mild to moderate aortic ?regurgitation ?Ehqxsvyp-wd-ecgjuv tricuspid valve regurgitation.? Moderate ?pulmonary hypertension with an estimated pulmonary artery peak ?systolic pressure of 57 mmHg ?Mild mitral annular calcification.? Grade 1 mitral valve ?prolapse. ?Trivial pericardial effusion. ?Comparison with the previous study is difficult because of the ?difference in the technical quality. IV Lasix 40 mg, changed to once daily Strict input output charting, daily weights. Dill catheter. Fluid restriction up to 1500 cc. Monitor electrolytes. Pneumonia a, CT abdomen does show hazy infiltrates at lung bases could be fluid could be pneumonia, nonetheless we will continue Rocephin, azithromycin Acute cystitis: Patient not a reliable historian. UA concerning for UTI. For now continue with IV ceftriaxone. Follow-up blood cultures and urine culture. CT abdomen pelvis negative for obstructive nephropathy. Does show cystitis Atrial fibrillation: Rate controlled. Takes carvedilol 25 mg twice daily and Cardizem 240 mg daily at home. Blood pressure soft. Hold off on carvedilol continue with Cardizem 60 mg every 6 hourly. Takes Coumadin at home. Supratherapeutic INR: INR around 3.3 we will hold Coumadin Hold off on Coumadin. Check INR daily. No active signs of bleeding or anemia. CT evidence of liver cirrhosis, monitor JESSICA on CKD: Baseline creatinine around 1.4-1.6. Currently 2.0 Medical reconciliation done for nephrotoxic drugs. Hold off on lisinopril for now. Check urine lites, urine creatinine, urine eosinophils. CT abdomen ruled out obstructive nephropathy. Cannot rule out CRS. Lasix as above. Monitor BMP daily for now. Hyperkalemia: Telemetry. Already received D50/10 units insulin in the ER. Current potassium 3.7 Hypertension: Goal blood pressure less than 140/90 mmHg with mean over 65. Blood pressure on the softer side. Hold off on home dose of Imdur, carvedilol, lisinopril. Continue with Cardizem at home dose. Monitor blood pressures and uptitrate or restart home medications as possible. Continue other chronic medications including Xanax at bedtime, gabapentin 3 mg at bedtime, iron, statin Seroquel. CODE STATUS: Discussed in detail with patient's DPOA/son over the phone. As per inpatient note do not want any heroic measures to be kept alive. DNR/DNI. Protonix for PUD prophylaxis SCD for DVT prophylaxis, hold off on medical prophylaxis given supratherapeutic INR. Renal nondialysis diet with fluid restriction Discharge planning: Plan to discharge back to assisted living versus SNF depending on clinical progression. Plan for today continue Rocephin, azithromycin, monitor mentation, aspiration precautions, monitor INR, monitor for bleeding, Haldol as needed for agitation Attestations Medical Necessity Statement*: Patient requires discharge for encephalopathy Diagnoses Weakness R53.1 SOB (shortness of breath) R06.02 Acute cystitis N30.00 Acute kidney injury superimposed on CKD N17.9; N18.9 Hyperkalemia E87.5 Congestive heart failure I50.32 Heart failure type: diastolic Heart failure chronicity: chronic Supratherapeutic INR R79.1 Atrial fibrillation I48.11 Atrial fibrillation type: longstanding persistent Transaminitis R74.01 CKD (chronic kidney disease) stage 3, GFR 30-59 ml/min N18.30 Fall W19.XXXA Chronic anticoagulation Z79.01 Goals of care, counseling/discussion Z71.89 Pericardial effusion I31.39 Acute encephalopathy G93.40
--- NOTE | 2022-06-18 11:58 | PC.NURSE ---
Patient refuses to tell this nurse name, or where patient is. Just telling me to get out every time I go in and threatens if anyone attempts to touch. Patient did let this nurse listen to heart, lungs and belly but does not want anyone to touch right arm.
[2022-06-18] MEDS: metOLazone 5 MG Tablet PO (12:35)
--- NOTE | 2022-06-18 13:04 | SUR.EXTENDED ---
pt became irritable and wanted me out of the room
--- NOTE | 2022-06-18 14:51 | PC.NURSE ---
Patient refuses to answer any questions. Patient continues to tell staff to get out of room. Patient has not eaten or drank today. Patient has slept and staff has asked if a drink or food is wanted. Patient denies anything.
--- NOTE | 2022-06-18 20:38 | PC.NURSE ---
Patient A&Ox0, VSS at this time. Patient refused to speak to nurse, and did not answer any questions. Neuro checks such as bpxzjc-rz-gbbn or jljw-sb-gpya tests are impossible at this time. Patient's lungs auscultated anteriorly as clear, patient currently on 2L nasal cannula. Patient's heart is paced on tele. Bowel sounds present in all four quadrants, abdomen soft and non-tender. Pedal pulse on right lower extremity 3+ and leg warm; pedal pulse on left lower extremity faint, and leg cool to touch but capillary refill was less than 3 seconds. Bilateral skin tears present on upper extremities, both areas covered by optifoam. Bruising also present on bilateral upper extremities. Dayshift nurse reported that patient refused medications, was aggressive and threatening with staff during dayshift, and was not cooperative with any treatment.
[2022-06-18] MEDS: atorvastatin 40 mg Tablet PO (20:54)
[2022-06-18] MEDS: docusate sodium 100 mg Capsule PO (20:54)
[2022-06-18] MEDS: gabapentin 300 mg Capsule PO (20:54)
[2022-06-18] MEDS: quetiapine 25 mg Tablet PO (20:54)
[2022-06-18] MEDS: pantoprazole DR 40 mg Tablet 20 MG PO (20:55)
--- NOTE | 2022-06-18 21:01 | PC.NURSE ---
Patient willingly swallowed all evening PO meds and consume approximately 240ml of water. As soon as nurse approached patient's IV with IV antibiotic, patient yelled, Get your ass out of here with that needle! Nurse explained to patient that the antibiotic had no IV but patient again yelled get away from me! Get your dirty ass away from me. I'm going to take all of you to court and I'm going to get money out of it too! You better get to running. Dr Robison was informed of patient's refusal.
--- NOTE | 2022-06-18 23:09 | PC.NURSE ---
Patient refused cardizem, stating now don't you start. Dr Robison was notified.
[2022-06-19] MEDS: ziprasidone 20 mg/mL SDV 10 MG IM (02:40)
--- NOTE | 2022-06-19 02:45 | PC.NURSE ---
Patient asked this nurse and aid to get up to the bedside commode because she had to have a BM, and said that if they didn't help her up that she would have stool everywhere and you little girls will have to clean it up. 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 Patient then went on to yell at staff and refused to use bedpan. This nurse and STATION TENDER then brought bedside commode near bedside, but when attempting to grab patient's arms to help her up, patient then yelled at nursing staff not to touch her, swatted at staff members, and refused to let staff help her to commode. Patient then tore off monitoring and evaluation advisor and oxygen, and attempted to remove Dill catheter. Patient argued with staff and refused to have help up to commode, and nursing staff attempted to educate patient that if she tried to get up on her own that she would fall, but patient unable to comprehend education. When patient kept arguing and yelling, Dr Robison was then contacted for medication order to help patient calm down. Dr Robison instructed to give 10 mg Geodon IM once now. Medication was administered. Patient helped back into bed, bed alarm reset.
[2022-06-19 05:47] VITALS: BMI 25.4
[2022-06-19 08:08] VITALS: PULSE 100
[2022-06-19] MEDS: meropenem 500 MG in sodium chloride 0.9% (plus) 50 ML 100 MG IV ×2 (09:00→21:48)
[2022-06-19] MEDS: azithromycin 500 MG in sodium chloride 0.9% 250 ML 250 MG IV (09:00)
[2022-06-19] MEDS: OLANZapine 10 mg VIAL 5 MG IM (10:42)
[2022-06-19 12:00] VITALS: BP 161/84; PULSE 91; RESP 18; TEMP 36.9; O2SAT 94
[2022-06-19 12:30] VITALS: PULSE 100
--- NOTE | 2022-06-19 13:13 | PC.NURSE ---
Patient ate some lunch. Tried to give Cardizem but absolutely said NO. Patient telling staff to get on out of there and refused any pills.
--- NOTE | 2022-06-19 15:00 | PM.PN ---
Subjective Subjective: Patient was seen this morning, son at bedside, patient's son tells me that she has a history of schizophrenia, dementia, at times she can be like this at home, this morning she was quite agitated, refusing to be examined, alert to person, not to place, not to time, according to nursing staff she was agitated throughout the night, refusing blood draws, refusing to take p.o. medications, she has not taken her gabapentin, her Seroquel, her gabapentin, I advised him that I Selena do my best to try to avoid sedating medications, as if she remains sedated during the day she will be awake during the night distal your repetitive cycle, we will continue to monitor significant however take her oral medications, Vitals/I&O/Wt Last Vital Signs Temp 98.5 F 06/19/22 12:00 Pulse 100 06/19/22 12:30 Resp 18 06/19/22 12:00 BP 161/84 06/19/22 12:00 Pulse Ox 94 06/19/22 12:00 O2 Del Method 06/19/22 12:00 O2 Flow Rate 2 06/18/22 04:00 06/19/22 06/19/22 06/19/22 06:59 14:59 22:59 Intake Total 0 / 610 540 / 540 Output Total 1300 / 2500 Balance -1300 / -1890 540 / 540 Weight last 48 hrs Weight 59.194 kg Weight 60.895 kg Physical Exam Const: COMMON NORMALS: no acute distress ORIENTATION/CONSCIOUSNESS: Yes awake and Yes oriented to person; not oriented to place and not oriented to time OTHER: No facial droop, no slurring of her words, agitated, refusing to be examined Resp: COMMON NORMALS: normal respiratory effort, No retractions, No use of accessory muscles and clear to auscultation bilaterally AUSCULTATION: clear to auscultation bilaterally Cardio: COMMON NORMALS: regular rate, regular rhythm, S1 normal heart sound present and S2 normal heart sound present RATE: regular rate RHYTHM: regular rhythm HEART SOUNDS: S1 normal heart sound present and S2 normal heart sound present GI: COMMON NORMALS: Normal to inspection, nondistended, normoactive bowel sounds present Extremity: COMMON NORMALS: no pedal edema Neuro: SENSORIUM/ORIENTATION: Yes oriented to person, No oriented to place and No oriented to time Urinary Catheter Management: Dill Latex: Cath Placed During This Visit: yes Reason for Continuing Indwelling Catheter: Other Urinary Catheter Date of Insertion: 06/16/22 Urinary Catheter Time of Insertion: 23:39 Data 06/18/22 05:23 06/18/22 05:23 Micro: Microbiology 06/16/22 18:58 Urine Culture - Final Urine,Clean Catch Klebsiella oxytoca A&P Assessment and plan (1) Weakness: (2) SOB (shortness of breath): (3) Acute cystitis: (4) Acute kidney injury superimposed on CKD: (5) Hyperkalemia: (6) Congestive heart failure: Qualifiers: Heart failure type: diastolic Heart failure chronicity: chronic Qualified Code(s): I50.32 - Chronic diastolic (congestive) heart failure (7) Supratherapeutic INR: (8) Atrial fibrillation: Qualifiers: Atrial fibrillation type: longstanding persistent Qualified Code(s): I48.11 - Longstanding persistent atrial fibrillation (9) Transaminitis: (10) CKD (chronic kidney disease) stage 3, GFR 30-59 ml/min: (11) Fall: (12) Chronic anticoagulation: (13) Goals of care, counseling/discussion: (14) Pericardial effusion: (15) Acute encephalopathy: Plan 81-year-old lady with past medical history of pacemaker implantation, atrial fibrillation on chronic anticoagulation, CAD presents to the ER today because of recurrent falls, weakness, shortness of breath found to have JESSICA on CKD, hyperkalemia, congestive heart failure and acute cystitis. Persistent acute encephalopathy, agitation -Likely multifactorial -Delirium from hospitalization -Underlying dementia, paranoid schizophrenia -Her not taking her gabapentin, her Seroquel, her alprazolam -Component from UTI, pneumonia -We will try to avoid sedating medications as much as we can Weakness/fall: Most likely secondary to combination of UTI, congestive heart failure, acute cystitis and JESSICA on CKD. Shortness of breath: History of diastolic congestive heart failure. Last echocardiogram from 2020 shows an EF 50% with grade 3 diastolic dysfunction, moderate to severe TR, moderate biatrial enlargement, moderate MR, moderate aortic regurgitation with severe pulmonary hypertension with PASP of 38 mmHg and a small pericardial effusion. CT chest shows moderate pericardial effusion. No hemodynamic compromise Normal left ventricular size and systolic function, EF 64 %. ?Mild left ventricular hypertrophy. No regional wall motion ?abnormalities. ?Moderate biatrial enlargement. Thickened aortic valve. Moderate ?aortic valve calcification.? Mild to moderate aortic ?regurgitation ?[id number] tricuspid valve regurgitation.? Moderate ?pulmonary hypertension with an estimated pulmonary artery peak ?systolic pressure of 57 mmHg ?Mild mitral annular calcification.? Grade 1 mitral valve ?prolapse. ?Trivial pericardial effusion. ?Comparison with the previous study is difficult because of the ?difference in the technical quality. IV Lasix 40 mg, changed to once daily Strict input output charting, daily weights. Dill catheter. Fluid restriction up to 1500 cc. Monitor electrolytes. Pneumonia a, CT abdomen does show hazy infiltrates at lung bases could be fluid could be pneumonia, nonetheless we will continue Rocephin, azithromycin Acute cystitis: Patient not a reliable historian. UA concerning for UTI. We will switch IV Rocephin to meropenem just in case her mentation change is secondary to resistant UTI. Follow-up blood cultures and urine culture. CT abdomen pelvis negative for obstructive nephropathy. Does show cystitis Atrial fibrillation: Rate controlled. Takes carvedilol 25 mg twice daily and Cardizem 240 mg daily at home. Blood pressure soft. Hold off on carvedilol continue with Cardizem 60 mg every 6 hourly. Takes Coumadin at home. Supratherapeutic INR: INR around 3.3, will not take p.o. medications, today's INR could not be obtained as patient refused blood draws, we will continue to monitor and retry tomorrow morning Hold off on Coumadin. Check INR daily. No active signs of bleeding or anemia. CT evidence of liver cirrhosis, monitor JESSICA on CKD: Baseline creatinine around 1.4-1.6. Current dose kidney function pending Medical reconciliation done for nephrotoxic drugs. Hold off on lisinopril for now. Check urine lites, urine creatinine, urine eosinophils. CT abdomen ruled out obstructive nephropathy. Cannot rule out CRS. Lasix as above. Monitor BMP daily for now. Hyperkalemia: Telemetry. Already received D50/10 units insulin in the ER. Current potassium 3.7 Hypertension: Goal blood pressure less than 140/90 mmHg with mean over 65. Blood pressure on the softer side. Hold off on home dose of Imdur, carvedilol, lisinopril. Continue with Cardizem at home dose. Monitor blood pressures and uptitrate or restart home medications as possible. Continue other chronic medications including Xanax at bedtime, gabapentin 3 mg at bedtime, iron, statin Seroquel. CODE STATUS: Discussed in detail with patient's DPOA/son over the phone. As per inpatient note do not want any heroic measures to be kept alive. DNR/DNI. Protonix for PUD prophylaxis SCD for DVT prophylaxis, hold off on medical prophylaxis given supratherapeutic INR. Renal nondialysis diet with fluid restriction Discharge planning: Plan to discharge back to assisted living versus SNF depending on clinical progression. Plan for today continue Rocephin, azithromycin, monitor mentation, aspiration precautions, monitor agitation, encourage p.o. intake, repeat blood draws if she allows us Attestations Medical Necessity Statement*: Patient requires hospitalization for acute cystitis, pneumonia, acute encephalopathy, agitation, Diagnoses Weakness R53.1 SOB (shortness of breath) R06.02 Acute cystitis N30.00 Acute kidney injury superimposed on CKD N17.9; N18.9 Hyperkalemia E87.5 Congestive heart failure I50.32 Heart failure type: diastolic Heart failure chronicity: chronic Supratherapeutic INR R79.1 Atrial fibrillation I48.11 Atrial fibrillation type: longstanding persistent Transaminitis R74.01 CKD (chronic kidney disease) stage 3, GFR 30-59 ml/min N18.30 Fall W19.XXXA Chronic anticoagulation Z79.01 Goals of care, counseling/discussion Z71.89 Pericardial effusion I31.39 Acute encephalopathy G93.40
--- NOTE | 2022-06-19 15:23 | PC.SOCIAL ---
IMM update IMM updated with patient's son. Verbalized an understanding. Initialled, dated, timed, and placed in chart.
[2022-06-19 16:00] VITALS: BP 138/74; PULSE 77; RESP 17; TEMP 36.8; O2SAT 92
[2022-06-19 16:32] VITALS: PULSE 100
[2022-06-19 21:07] VITALS: BP 131/69; PULSE 86; RESP 20; O2SAT 97
--- NOTE | 2022-06-19 21:08 | PC.NURSE ---
Addendum entered by FAUSTINO Vaughn 06/19/22 21:12: nurse was notified by this tech of patients comments and behavior @2099 Original Note: pt refused to have temperature taken @1999 by this tech; pt stated get that needle away from me ; this tech explained to the patient that it was a thermometer probe used for checking temperature; pt still refused pt detached catheter bag from jacskon catheter; this tech reattached the jackson catheter and attempted to reorient this patient pt stated do you see that doctor sitting over there, i bet you didn't know he was sitting over there ; this tech observed the room, there was no doctor present at this time @1999
[2022-06-19] MEDS: atorvastatin 40 mg Tablet PO (21:41)
[2022-06-19] MEDS: pantoprazole DR 40 mg Tablet 20 MG PO (21:41)
[2022-06-19] MEDS: gabapentin 300 mg Capsule PO (21:41)
[2022-06-19] MEDS: quetiapine 25 mg Tablet PO (21:41)
--- NOTE | 2022-06-19 21:43 | PC.NURSE ---
This nurse administered bedtime meds in pudding, patient swallowed part of it but spit out some of the pudding. Patient attempted to bite this nurse and threw water at this nurse.
--- NOTE | 2022-06-19 21:52 | PC.NURSE ---
Patient refusing bus monitor at this time. This nurse attempted to place telemetry on patient and patient pulled it off and threw it.
[2022-06-19] MEDS: dilTIAZem 60 mg Tablet PO (23:43)
[2022-06-20] VITALS: BP 143/75; PULSE 86; RESP 15; TEMP 36.6; O2SAT 94
[2022-06-20 04:00] VITALS: BP 164/84; PULSE 97; RESP 17; TEMP 36.9; O2SAT 95
[2022-06-20] MEDS: FUROsemide 10 mg/mL SDV 4mL 40 MG IVP (05:26)
--- NOTE | 2022-06-20 05:31 | PC.NURSE ---
Patient refusing lab draws this morning and refused her ferrous sulfate and cardizem pills this morning. Physician notified.
[2022-06-20] MEDS: OLANZapine 10 mg VIAL 5 MG IM (09:07)
[2022-06-20] MEDS: meropenem 500 MG in sodium chloride 0.9% (plus) 50 ML 100 MG IV ×2 (09:08→22:45)
--- NOTE | 2022-06-20 09:21 | PC.NURSE ---
Called Lab to come draw patient per Dr. Vidal. Patient has been medicated to calm down. This nurse stated to get help with patient once they come.
[2022-06-20 10:20] LABS: Basophils # 0.1 10^3/uL (0.0-0.1); Basophils % 0.7 %; Eosinophils # 0.1 10^3/uL (0.0-0.8); Hemoglobin 15.4 g/dL (11.5-15.3); Mean Corpuscular HGB Conc 32.8 g/dL (30.0-36.0); Mean Corpuscular Hemoglobin 30.2 pg (28.0-34.0); Mean Corpuscular Volume 92.2 fl (81-99); Mean Platelet Volume 10.9 fL (7.4-10.4); Monocytes # 0.8 10^3/uL (0.2-0.9); Monocytes % 8.2 %; Neutrophils # 6.64 10^3/uL (1.8-7.7); Neutrophils % 67.7 %; Nucleated Red Blood Cells % 0 %; Platelet Count 222 10^3/cmm (130-400); Red Cell Distribution Width 14.6 % (12.1-15.1); White Blood Count 9.8 10^3/uL (4.0-10.0)
[2022-06-20 10:32] LABS: INR 1.97 (0.8-1.2)
[2022-06-20] MEDS: azithromycin 250 MG in sodium chloride 0.9% 250 ML IV (10:37)
[2022-06-20 10:53] LABS: NT Pro B Type Natriuretic Pept 8037 pg/mL (0-450); Procalcitonin 0.11 ng/mL (0-0.5)
[2022-06-20 11:04] LABS: Alanine Aminotransferase 135 U/L (0-33); Albumin Level 3.1 g/dL (3.5-5.2); Alkaline Phosphatase 103 U/L (35-105); Anion Gap 18.3 (5-19); Aspartate Amino Transferase 131 U/L (0-32); Blood Urea Nitrogen 47 mg/dL (8-23); C Reactive Protein 43.5 mg/L (0.0-4.9); Calcium 9.9 mg/dL (8.5-10.5); Carbon Dioxide 28 mmol/L (22-29); Chloride 100 mmol/L (98-107); Globulin 3.3 g/dL (1.3-4.6); Glucose 108 mg/dL (65-115); Magnesium 2.1 mg/dL (1.7-2.3); Osmolality Calculated 309 mOsm/kg (285-295); Phosphorus 2.6 mg/dL (2.5-4.5); Potassium 3.3 mmol/L (3.5-5.1); Sodium 143 mmol/L (136-145); Total Bilirubin 0.9 mg/dL (0.15-1.2); Total Protein 6.4 g/dL (6.6-8.7)
--- NOTE | 2022-06-20 11:47 | P.PN_ITS ---
Subjective Subjective: According to nursing staff she was a bit more confused this morning, she received Zyprexa this morning, during my examination she is much more calm, she allows me to do a physical exam, she is alert to person, not to place, not to time, nursing staff were able to get blood work from her, last night she took some of her pills, but others she threw in her putting across the room, I was told by nursing staff, so is not exactly sure if she took all her medications Vitals/I&O/Wt Last Vital Signs Temp 98.4 F 06/20/22 04:00 Pulse 97 06/20/22 04:00 Resp 17 06/20/22 04:00 BP 164/84 06/20/22 04:00 Pulse Ox 95 06/20/22 04:00 O2 Del Method 06/20/22 04:00 O2 Flow Rate 2 06/18/22 04:00 06/19/22 06/20/22 06/20/22 22:59 06:59 14:59 Intake Total 170 / 710 Output Total 900 / 900 Balance -730 / -190 Weight last 48 hrs Weight 60.441 kg Weight 59.194 kg Physical Exam Const: COMMON NORMALS: no acute distress ORIENTATION/CONSCIOUSNESS: Yes awake and Yes oriented to person; not oriented to place and not oriented to time Resp: COMMON NORMALS: normal respiratory effort, No retractions and No use of accessory muscles AUSCULTATION: crackles Cardio: COMMON NORMALS: regular rate, regular rhythm, S1 normal heart sound present and S2 normal heart sound present RATE: regular rate RHYTHM: regular rhythm HEART SOUNDS: S1 normal heart sound present and S2 normal heart sound present GI: COMMON NORMALS: Normal to inspection, nondistended, normoactive bowel sounds present and non-tender Extremity: COMMON NORMALS: no pedal edema Neuro: SENSORIUM/ORIENTATION: Yes oriented to person, No oriented to place and No oriented to time Psych: COMMON NORMALS: mental status grossly normal Urinary Catheter Management: Dill Latex: Cath Placed During This Visit: yes Reason for Continuing Indwelling Catheter: Other Urinary Catheter Date of Insertion: 06/16/22 Urinary Catheter Time of Insertion: 23:39 Data 06/20/22 10:07 06/20/22 10:07 Micro: Microbiology 06/16/22 18:58 Urine Culture - Final Urine,Clean Catch Klebsiella oxytoca A&P Assessment and plan (1) Weakness: (2) SOB (shortness of breath): (3) Acute cystitis: (4) Acute kidney injury superimposed on CKD: (5) Hyperkalemia: (6) Congestive heart failure: Qualifiers: Heart failure chronicity: chronic Heart failure type: diastolic Qualified Code(s): I50.32 - Chronic diastolic (congestive) heart failure (7) Supratherapeutic INR: (8) Atrial fibrillation: Qualifiers: Atrial fibrillation type: longstanding persistent Qualified Code(s): I48.11 - Longstanding persistent atrial fibrillation (9) Transaminitis: (10) CKD (chronic kidney disease) stage 3, GFR 30-59 ml/min: (11) Fall: (12) Chronic anticoagulation: (13) Goals of care, counseling/discussion: (14) Pericardial effusion: (15) Acute encephalopathy: Plan 81-year-old lady with past medical history of pacemaker implantation, atrial fibrillation on chronic anticoagulation, CAD presents to the ER today because of recurrent falls, weakness, shortness of breath found to have JESSICA on CKD, hyperkalemia, congestive heart failure and acute cystitis. Persistent acute encephalopathy, agitation -Likely multifactorial -Delirium from hospitalization -Underlying dementia, paranoid schizophrenia -Her not taking her gabapentin, her Seroquel, her alprazolam -Component from UTI, pneumonia -We will give her Zyprexa in the, scheduled to Zyprexa during the night hopefully this will help with her encephalopathy Weakness/fall: Most likely secondary to combination of UTI, congestive heart failure, acute cystitis and JESSICA on CKD. Shortness of breath: History of diastolic congestive heart failure. Last echocardiogram from 2020 shows an EF 50% with grade 3 diastolic dysfunction, moderate to severe TR, moderate biatrial enlargement, moderate MR, moderate aortic regurgitation with severe pulmonary hypertension with PASP of 38 mmHg and a small pericardial effusion. CT chest shows moderate pericardial effusion. No hemodynamic compromise Normal left ventricular size and systolic function, EF 64 %. ?Mild left ventricular hypertrophy. No regional wall motion ?abnormalities. ?Moderate biatrial enlargement. Thickened aortic valve. Moderate ?aortic valve calcification.? Mild to moderate aortic ?regurgitation ?Yzzpklpy-rk-ihvkik tricuspid valve regurgitation.? Moderate ?pulmonary hypertension with an estimated pulmonary artery peak ?systolic pressure of 57 mmHg ?Mild mitral annular calcification.? Grade 1 mitral valve ?prolapse. ?Trivial pericardial effusion. ?Comparison with the previous study is difficult because of the ?difference in the technical quality. IV Lasix 40 mg, changed to once daily, BNP 37, does not look fluid overloaded but does have some crackles on exam Strict input output charting, daily weights. Dill catheter. Fluid restriction up to 1500 cc. Monitor electrolytes. Pneumonia a, CT abdomen does show hazy infiltrates at lung bases could be fluid could be pneumonia, nonetheless we will continue Rocephin, azithromycin Acute cystitis: Patient not a reliable historian. UA concerning for UTI. We will switch IV Rocephin to meropenem just in case her mentation change is secondary to resistant UTI. Follow-up blood cultures and urine culture. CT abdomen pelvis negative for obstructive nephropathy. Does show cystitis Atrial fibrillation: Rate controlled. Takes carvedilol 25 mg twice daily and Cardizem 240 mg daily at home. Blood pressure soft. Hold off on carvedilol continue with Cardizem 60 mg every 6 hourly. Supratherapeutic INR: resolved, INR around 1.97, will will encourage her to take p.o. meds, start her on Coumadin Check INR daily. No active signs of bleeding or anemia. CT evidence of liver cirrhosis, monitor JESSICA on CKD: Baseline creatinine around 1.4-1.6. Current dose kidney function pending Medical reconciliation done for nephrotoxic drugs. Hold off on lisinopril for now. Check urine lites, urine creatinine, urine eosinophils. CT abdomen ruled out obstructive nephropathy. Cannot rule out CRS. Lasix as above. Monitor BMP daily for now. Hypokalemia we will replace Already received D50/10 units insulin in the ER. Current potassium 3.7 Hypertension: Goal blood pressure less than 140/90 mmHg with mean over 65. Blood pressure on the softer side. Hold off on home dose of Imdur, carvedilol, lisinopril. Continue with Cardizem at home dose. Monitor blood pressures and uptitrate or restart home medications as possible. Continue other chronic medications including Xanax at bedtime, gabapentin 3 mg at bedtime, iron, statin Seroquel. CODE STATUS: Discussed in detail with patient's DPOA/son over the phone. As per inpatient note do not want any heroic measures to be kept alive. DNR/DNI. Protonix for PUD prophylaxis SCD for DVT prophylaxis, hold off on medical prophylaxis given supratherapeutic INR. Renal nondialysis diet with fluid restriction Discharge planning: Plan to discharge back to assisted living versus SNF de pending on clinical progression. Plan for today continue Rocephin, azithromycin, monitor mentation, aspiration precautions, monitor agitation, encourage p.o. intake, repeat blood draws if she allows us 1 dose Zyprexa in the morning, will 7.5 mg p.o. bedtime to help with agitation Attestations Medical Necessity Statement*: Patient requires hospitalization for encephalopathy, UTI, pneumonia, fluid overload Diagnoses Weakness R53.1 SOB (shortness of breath) R06.02 Acute cystitis N30.00 Acute kidney injury superimposed on CKD N17.9; N18.9 Hyperkalemia E87.5 Congestive heart failure I50.32 Heart failure chronicity: chronic Heart failure type: diastolic Supratherapeutic INR R79.1 Atrial fibrillation I48.11 Atrial fibrillation type: longstanding persistent Transaminitis R74.01 CKD (chronic kidney disease) stage 3, GFR 30-59 ml/min N18.30 Fall W19.XXXA Chronic anticoagulation Z79.01 Goals of care, counseling/discussion Z71.89 Pericardial effusion I31.39 Acute encephalopathy G93.40
[2022-06-20 12:55] VITALS: BP 164/84; PULSE 97; RESP 17; TEMP 36.9
[2022-06-20] MEDS: lidocaine 1% 5 ML in potassium chloride premix 100 ML 26.25 ML IV (13:54)
[2022-06-20] MEDS: LORazepam 2 mg/mL INJ 1 mL 1 MG IM (15:03)
--- NOTE | 2022-06-20 15:09 | PC.NURSE ---
Gave patient ativan 0.5. Patient has not calmed down since zyprexa when approached by staff. Patient uses profanity, grabs wrist, and slapped this nurse on side of arm. Holding Coumadin to see if patient will take once ativan takes affect.
--- NOTE | 2022-06-20 16:26 | PC.NURSE ---
Tried to give patient Coumadin crushed in pudding. Patient absolutely would not take. Yelled and covered mouth up with blanket telling this nurse to get out.
[2022-06-20 16:42] VITALS: BP 164/84; PULSE 97; RESP 17; TEMP 36.9
[2022-06-20 18:52] VITALS: BP 154/76; PULSE 91; O2SAT 97
--- NOTE | 2022-06-20 19:24 | PC.NURSE ---
Tried to give patient evening medications but totally refused again. Wanted ice water but will not take PO medications
[2022-06-20] MEDS: OLANZapine 5 mg TABLET 7.5 MG PO (21:15)
[2022-06-20] MEDS: quetiapine 25 mg Tablet PO (21:16)
[2022-06-20 21:54] LABS: Procalcitonin 0.11 ng/mL (0-0.5)
[2022-06-21] MEDS: LORazepam 2 mg/mL INJ 1 mL 1 MG IM (05:59)
--- NOTE | 2022-06-21 06:00 | PC.NURSE ---
This nurse went in to administer morning PO meds, patient refused, patient also refused most po meds throughout the night and refused vitals throughout night. Patient refused morning labs. Patient becoming more agitated, threatening staff, trying to hit and grab staff. PRN IM Ativan given.
[2022-06-21] MEDS: FUROsemide 10 mg/mL SDV 4mL 40 MG IVP (06:20)
[2022-06-21 06:34] VITALS: BP 154/80; PULSE 92; RESP 16; TEMP 36.3; O2SAT 93
[2022-06-21 07:15] LABS: Anion Gap 17.5 (5-19); Blood Urea Nitrogen 44 mg/dL (8-23); Calcium 9.8 mg/dL (8.5-10.5); Carbon Dioxide 27 mmol/L (22-29); Chloride 99 mmol/L (98-107); Glucose 148 mg/dL (65-115); Osmolality Calculated 304 mOsm/kg (285-295); Potassium 3.5 mmol/L (3.5-5.1); Sodium 140 mmol/L (136-145)
[2022-06-21 07:18] LABS: INR 1.88 (0.8-1.2)
[2022-06-21 07:34] VITALS: PULSE 101; RESP 18; O2SAT 91
[2022-06-21 08:00] VITALS: BP 143/79; PULSE 102; RESP 18; O2SAT 94
[2022-06-21] MEDS: meropenem 500 MG in sodium chloride 0.9% (plus) 50 ML 100 MG IV ×2 (10:00→20:34)
[2022-06-21 11:42] VITALS: PULSE 83; RESP 18; O2SAT 92
[2022-06-21] MEDS: dilTIAZem 60 mg Tablet PO (12:11)
[2022-06-21] MEDS: carvedilol 12.5 mg Tablet PO (12:11)
[2022-06-21] MEDS: azithromycin 250 MG in sodium chloride 0.9% 250 ML IV (12:18)
--- NOTE | 2022-06-21 15:09 | PC.SOCIAL ---
IMM update IMM updated with patient's son. Verbalized an understanding. Copy Pg 2 at bedside. Initialled, dated, timed, and placed in chart.
[2022-06-21 20:00] VITALS: BP 120/73; PULSE 92; RESP 17; TEMP 36.7; O2SAT 93
[2022-06-21] MEDS: OLANZapine 5 mg TABLET 7.5 MG PO (20:22)
[2022-06-21] MEDS: quetiapine 25 mg Tablet PO (20:25)
[2022-06-21] MEDS: pantoprazole DR 40 mg Tablet 20 MG PO (20:25)
[2022-06-21] MEDS: gabapentin 300 mg Capsule PO (20:26)
[2022-06-21] MEDS: atorvastatin 40 mg Tablet PO (20:26)
--- NOTE | 2022-06-21 20:47 | PC.NURSE ---
This nurse crushed the patient's evening meds and attempted to give them to the patient. The patient only took half of the medications before becoming agitated and yelling You get out now! and attempting to swat at this nurse.
--- NOTE | 2022-06-21 21:35 | PM.PN ---
Subjective Subjective: She is sleeping, on waking her up states leave me alone . Vitals/I&O/Wt Last Vital Signs Temp 97.4 F L 06/21/22 06:34 Pulse 83 06/21/22 11:42 Resp 18 06/21/22 11:42 BP 143/79 06/21/22 08:00 Pulse Ox 92 06/21/22 11:42 O2 Del Method 06/21/22 20:16 O2 Flow Rate 2 06/18/22 04:00 06/21/22 06/21/22 06/21/22 06:59 14:59 22:59 Intake Total 50 / 455 450 / 450 Output Total 500 / 1850 800 / 800 Balance -450 / -1395 -350 / -350 Weight last 48 hrs Weight 59.466 kg Weight 60.441 kg Physical Exam Neck/C-Spine: COMMON NORMALS: no JVD Resp: COMMON NORMALS: normal respiratory effort and clear to auscultation bilaterally AUSCULTATION: clear to auscultation bilaterally Cardio: COMMON NORMALS: no JVD and No murmurs present (Cardio) GI: COMMON NORMALS: Soft to palpation PALPATION: Yes Soft to palpation Extremity: COMMON NORMALS: no pedal edema Neuro: COMMON NORMALS: moves all extremities Urinary Catheter Management: Dill Latex: Cath Placed During This Visit: yes Reason for Continuing Indwelling Catheter: Other Urinary Catheter Date of Insertion: 06/16/22 Urinary Catheter Time of Insertion: 23:39 Data 06/20/22 10:07 06/21/22 06:35 A&P Assessment and plan (1) Weakness: (2) SOB (shortness of breath): (3) Acute cystitis: (4) Acute kidney injury superimposed on CKD: (5) Hyperkalemia: (6) Congestive heart failure: Qualifiers: Heart failure type: diastolic Heart failure chronicity: chronic Qualified Code(s): I50.32 - Chronic diastolic (congestive) heart failure (7) Supratherapeutic INR: (8) Atrial fibrillation: Qualifiers: Atrial fibrillation type: longstanding persistent Qualified Code(s): I48.11 - Longstanding persistent atrial fibrillation (9) Transaminitis: (10) CKD (chronic kidney disease) stage 3, GFR 30-59 ml/min: (11) Fall: (12) Chronic anticoagulation: (13) Goals of care, counseling/discussion: (14) Pericardial effusion: (15) Acute encephalopathy: Plan 81-year-old lady with past medical history of pacemaker implantation, atrial fibrillation on chronic anticoagulation, CAD presents to the ER today because of recurrent falls, weakness, shortness of breath found to have JESSICA on CKD, hyperkalemia, congestive heart failure and acute cystitis. Persistent acute encephalopathy, agitation She appears to be sporadically taking some of her medications. Today without agitation. Although still not cooperative. Continue quetiapine and Zyprexa. These appear to be helping at least with the positive symptoms. -Likely multifactorial -Delirium from hospitalization -Underlying dementia, paranoid schizophrenia -Her not taking her gabapentin, her Seroquel, her alprazolam -Component from UTI, pneumonia Noted improving renal function JESSICA, creatinine reviewed 1.2, BUN is 44. Weakness/fall: Most likely secondary to combination of UTI, congestive heart failure, acute cystitis and JESSICA on CKD. Shortness of breath: History of diastolic congestive heart failure. Last echocardiogram from 2020 shows an EF 50% with grade 3 diastolic dysfunction, moderate to severe TR, moderate biatrial enlargement, moderate MR, moderate aortic regurgitation with severe pulmonary hypertension with PASP of 38 mmHg and a small pericardial effusion. CT chest shows moderate pericardial effusion. No hemodynamic compromise Normal left ventricular size and systolic function, EF 64 %. ?Mild left ventricular hypertrophy. No regional wall motion ?abnormalities. ?Moderate biatrial enlargement. Thickened aortic valve. Moderate ?aortic valve calcification.? Mild to moderate aortic ?regurgitation ?[id number] tricuspid valve regurgitation.? Moderate ?pulmonary hypertension with an estimated pulmonary artery peak ?systolic pressure of 57 mmHg ?Mild mitral annular calcification.? Grade 1 mitral valve ?prolapse. ?Trivial pericardial effusion. ?Comparison with the previous study is difficult because of the ?difference in the technical quality. Keep Lasix 40 mg IV daily for now until she is more evaluated for medications. Monitor electrolytes with diuresis. Potassium 3.5. Normal creatinine 1.23 BUN 44. We will give potassium 20 mg. Strict input output charting, daily weights. Dill catheter. Fluid restriction up to 1500 cc. Monitor electrolytes. Pneumonia: Continue meropenem, azithromycin Acute cystitis: Patient not a reliable historian. Possible UTI. On meropenem. Urine culture reviewed, Klebsiella resistant to ampicillin, intermediate to nitrofurantoin. May be able to complete course for this tomorrow. Atrial fibrillation: Rate controlled. Takes carvedilol 25 mg twice daily and Cardizem 240 mg daily at home. Blood pressure soft. Hold off on carvedilol continue with Cardizem 60 mg every 6 hourly. Supratherapeutic INR: resolved, INR around 1.97, will will encourage her to take p.o. meds, start her on Coumadin Check INR daily. No active signs of bleeding or anemia. CT evidence of liver cirrhosis, monitor JESSICA on CKD: Baseline creatinine around 1.4-1.6. JESSICA during hospitalization noted. Creatinine coming down, currently at 1.2. Medical reconciliation done for nephrotoxic drugs. Hold off on lisinopril for now. Monitor BMP daily for now. Hypokalemia: Potassium on the low side, will give additional potassium 20 mg. Hypertension Continue other chronic medications including Xanax at bedtime, gabapentin 3 mg at bedtime, iron, statin Seroquel. Discharge planning: Plan to discharge back to assisted living versus SNF depending on clinical progression. Attestations Medical Necessity Statement*: Continue admission for assessment management of encephalopathy superimposed on dementia, electrolyte replacement and monitoring at risk of further hypokalemia with IV diuretics until tolerating oral medications more consistently, optimization of medical management of encephalopathy. Diagnoses Weakness R53.1 SOB (shortness of breath) R06.02 Acute cystitis N30.00 Acute kidney injury superimposed on CKD N17.9; N18.9 Hyperkalemia E87.5 Congestive heart failure I50.32 Heart failure type: diastolic Heart failure chronicity: chronic Supratherapeutic INR R79.1 Atrial fibrillation I48.11 Atrial fibrillation type: longstanding persistent Transaminitis R74.01 CKD (chronic kidney disease) stage 3, GFR 30-59 ml/min N18.30 Fall W19.XXXA Chronic anticoagulation Z79.01 Goals of care, counseling/discussion Z71.89 Pericardial effusion I31.39 Acute encephalopathy G93.40
[2022-06-21 23:55] VITALS: BP 127/88; PULSE 91; RESP 17; TEMP 36.8; O2SAT 97
[2022-06-22] MEDS: lidocaine 1% 5 ML in potassium chloride premix 100 ML 50 ML IV (01:00)
[2022-06-22 04:00] VITALS: BP 128/75; PULSE 84; RESP 17; TEMP 37.2; O2SAT 92
[2022-06-22] MEDS: FUROsemide 10 mg/mL SDV 4mL 40 MG IVP (05:51)
--- NOTE | 2022-06-22 06:01 | PC.NURSE ---
Patient refused morning PO meds and spit water at nurse after saying You're the ugliest damn thing that ever walked on two legs. The patient repeatedly attempted to hit the nurse.
[2022-06-22 06:26] LABS: Anion Gap 16.6 (5-19); Blood Urea Nitrogen 46 mg/dL (8-23); Calcium 9.5 mg/dL (8.5-10.5); Carbon Dioxide 27 mmol/L (22-29); Chloride 98 mmol/L (98-107); Glucose 85 mg/dL (65-115); Osmolality Calculated 297 mOsm/kg (285-295); Potassium 3.6 mmol/L (3.5-5.1); Sodium 138 mmol/L (136-145)
[2022-06-22 06:50] LABS: INR 1.92 (0.8-1.2)
[2022-06-22 08:00] VITALS: BP 123/76; PULSE 89; RESP 18; TEMP 36.8; O2SAT 92
[2022-06-22 09:47] VITALS: PULSE 89; RESP 18; O2SAT 92
[2022-06-22] MEDS: meropenem 500 MG in sodium chloride 0.9% (plus) 50 ML 100 MG IV (10:23)
[2022-06-22 12:00] VITALS: BP 118/72; PULSE 111; RESP 16; TEMP 36.5; O2SAT 92
[2022-06-22] MEDS: azithromycin 250 MG in sodium chloride 0.9% 250 ML IV (13:03)
[2022-06-22 16:00] VITALS: BP 121/69; PULSE 76; RESP 16; O2SAT 93
--- NOTE | 2022-06-22 16:50 | PM.PN ---
Subjective Subjective: She is more alert today, although cannot tell me where she is. Does tell me that her usual doctor is Dr. Dumont. Does not want any further assessment. Why do not you leave now . Vitals/I&O/Wt Last Vital Signs Temp 97.7 F 06/22/22 12:00 Pulse 76 06/22/22 16:00 Resp 16 06/22/22 16:00 BP 121/69 06/22/22 16:00 Pulse Ox 93 06/22/22 16:00 O2 Del Method 06/22/22 16:00 O2 Flow Rate 2 06/18/22 04:00 06/22/22 06/22/22 06/22/22 06:59 14:59 22:59 Intake Total 705 / 1755 50 / 50 250 / 300 Output Total 500 / 1300 Balance 205 / 455 50 / 50 250 / 300 Weight last 48 hrs Weight 59.466 kg Physical Exam Const: ORIENTATION/CONSCIOUSNESS: Yes awake and Yes oriented to person; not oriented to place and not oriented to time Neck/C-Spine: COMMON NORMALS: no JVD Resp: COMMON NORMALS: normal respiratory effort and clear to auscultation bilaterally AUSCULTATION: clear to auscultation bilaterally Cardio: COMMON NORMALS: no JVD and No murmurs present (Cardio) GI: COMMON NORMALS: Soft to palpation PALPATION: Yes Soft to palpation Extremity: COMMON NORMALS: no pedal edema Neuro: COMMON NORMALS: moves all extremities SENSORIUM/ORIENTATION: Yes oriented to person, No oriented to place and No oriented to time Urinary Catheter Management: Dill Latex: Cath Placed During This Visit: yes Reason for Continuing Indwelling Catheter: Other Urinary Catheter Date of Insertion: 06/16/22 Urinary Catheter Time of Insertion: 23:39 Data 06/20/22 10:07 06/22/22 05:45 Micro: Microbiology 06/16/22 23:46 Blood Culture - Final Blood NO GROWTH AFTER 5 DAYS 06/16/22 23:48 Blood Culture - Final Blood NO GROWTH AFTER 5 DAYS A&P Assessment and plan (1) Weakness: (2) SOB (shortness of breath): (3) Acute cystitis: (4) Acute kidney injury superimposed on CKD: (5) Hyperkalemia: (6) Congestive heart failure: Qualifiers: Heart failure type: diastolic Heart failure chronicity: chronic Qualified Code(s): I50.32 - Chronic diastolic (congestive) heart failure (7) Supratherapeutic INR: (8) Atrial fibrillation: Qualifiers: Atrial fibrillation type: longstanding persistent Qualified Code(s): I48.11 - Longstanding persistent atrial fibrillation (9) Transaminitis: (10) CKD (chronic kidney disease) stage 3, GFR 30-59 ml/min: (11) Fall: (12) Chronic anticoagulation: (13) Goals of care, counseling/discussion: (14) Pericardial effusion: (15) Acute encephalopathy: Plan 81-year-old lady with past medical history of pacemaker implantation, atrial fibrillation on chronic anticoagulation, CAD presents to the ER today because of recurrent falls, weakness, shortness of breath found to have JESSICA on CKD, hyperkalemia, congestive heart failure and acute cystitis. Persistent acute encephalopathy, agitation: Agitation so far has improved, although not entirely resolved, had an episode of combativeness this morning with nursing staff and they were trying to provide care. When she is not bothered she otherwise stays content. Overall positive symptoms appear to be improving with antipsychotic regimen. Continue. She otherwise does not want to participate in further medical care. Declines additional assessments. She has continually been refusing to take her medications. Certainly she is also not necessarily making good decisions. Discussed with her son. He does state that overall she has expressed limited goals of care. Definitely DNR in terms of CODE STATUS, and given she has not been wanting to participate in further medical treatments he feels that that is in alignment with her overall wishes, and she would prefer to allow nature to take its course rather than pursue further aggressive medical care. We discussed consideration of hospice care as it also appears she would rather not continue current medical treatments, rather also not return to the hospital and he feels that that likely would be appropriate as well. He has been in discussion with her other child, his sister as well, although patient and sister have not been on speaking terms in a very long time. Her son states that she has been suffering from dementia, overall has been in declining health. Discussed with case management. On discharge to senior living hospice care would be appropriate. JESSICA: Appreciate improving renal function. Creatinine down to 1.1. Weakness/fall: Most likely secondary to combination of UTI, congestive heart failure, acute cystitis and JESSICA on CKD. Shortness of breath: History of diastolic congestive heart failure. Last echocardiogram from 2020 shows an EF 50% with grade 3 diastolic dysfunction, moderate to severe TR, moderate biatrial enlargement, moderate MR, moderate aortic regurgitation with severe pulmonary hypertension with PASP of 38 mmHg and a small pericardial effusion. CT chest shows moderate pericardial effusion. No hemodynamic compromise Normal left ventricular size and systolic function, EF 64 %. ?Mild left ventricular hypertrophy. No regional wall motion ?abnormalities. ?Moderate biatrial enlargement. Thickened aortic valve. Moderate ?aortic valve calcification.? Mild to moderate aortic ?regurgitation ?[id number] tricuspid valve regurgitation.? Moderate ?pulmonary hypertension with an estimated pulmonary artery peak ?systolic pressure of 57 mmHg ?Mild mitral annular calcification.? Grade 1 mitral valve ?prolapse. ?Trivial pericardial effusion. ?Comparison with the previous study is difficult because of the ?difference in the technical quality. Keep Lasix 40 mg IV daily for now until she is more evaluated for medications. Monitor electrolytes with diuresis. Potassium 3.5. Normal creatinine 1.23 BUN 44. We will give potassium 20 mg. Strict input output charting, daily weights. Dill catheter. Fluid restriction up to 1500 cc. Monitor electrolytes. Pneumonia: Completed 5 days of antibiotics. Stop meropenem and azithromycin. Saturating in 90s on room air. UTI: Completed course of antibiotics. Stop meropenem. Atrial fibrillation: Rate controlled. Takes carvedilol 25 mg twice daily and Cardizem 240 mg daily at home. Blood pressure soft. Hold off on carvedilol continue with Cardizem 60 mg every 6 hourly. She has been refusing it. Has been refusing warfarin as well. Supratherapeutic INR: resolved, INR around 1.97, will will encourage her to take p.o. meds, start her on Coumadin Check INR daily. No active signs of bleeding or anemia. CT evidence of liver cirrhosis, monitor JESSICA on CKD: Baseline creatinine around 1.4-1.6. JESSICA during hospitalization noted. Creatinine coming down, currently at 1.2. Follow-up BMP ordered. Medical reconciliation done for nephrotoxic drugs. Hold off on lisinopril for now. Monitor BMP daily for now. Hypokalemia: Potassium on the low side, will give additional potassium 20 mg. Hypertension Continue other chronic medications including Xanax at bedtime, gabapentin 3 mg at bedtime, iron, statin Seroquel. Discharge planning: Case management working on placement. Was not a candidate for [facility]. Goals of care are also limited as per discussion with her son and hospice care appropriate. Attestations Medical Necessity Statement*: Continue patient for optimization of symptoms of encephalopathy superimposed on dementia, control positive symptoms, goals of care and discharge planning. Diagnoses Weakness R53.1 SOB (shortness of breath) R06.02 Acute cystitis N30.00 Acute kidney injury superimposed on CKD N17.9; N18.9 Hyperkalemia E87.5 Congestive heart failure I50.32 Heart failure type: diastolic Heart failure chronicity: chronic Supratherapeutic INR R79.1 Atrial fibrillation I48.11 Atrial fibrillation type: longstanding persistent Transaminitis R74.01 CKD (chronic kidney disease) stage 3, GFR 30-59 ml/min N18.30 Fall W19.XXXA Chronic anticoagulation Z79.01 Goals of care, counseling/discussion Z71.89 Pericardial effusion I31.39 Acute encephalopathy G93.40
[2022-06-22 17:35] LABS: Ammonia 32 umol/L (11-51)
[2022-06-22 19:33] VITALS: BP 116/61; PULSE 73; RESP 18; TEMP 36.4; O2SAT 93
--- NOTE | 2022-06-22 21:14 | PC.NURSE ---
Patient refused all night time PO meds. Upon attempt the administer the patient swatted at this nurse and stated Get out
--- NOTE | 2022-06-22 21:16 | PC.NURSE ---
When asking patient her name the patient answered Cheli . Patient refuses to answer other orientation questions.
[2022-06-23] VITALS: BP 118/62; PULSE 73; RESP 18; TEMP 36.6; O2SAT 92
[2022-06-23 04:41] VITALS: BP 145/85; PULSE 86; RESP 18; TEMP 36.6; O2SAT 96
[2022-06-23] MEDS: FUROsemide 10 mg/mL SDV 4mL 40 MG IVP (05:08)
[2022-06-23 05:38] LABS: INR 1.71 (0.8-1.2)
[2022-06-23 05:43] LABS: Anion Gap 16.5 (5-19); Blood Urea Nitrogen 51 mg/dL (8-23); Carbon Dioxide 29 mmol/L (22-29); Chloride 96 mmol/L (98-107); Glucose 108 mg/dL (65-115); Osmolality Calculated 300 mOsm/kg (285-295); Potassium 3.5 mmol/L (3.5-5.1); Sodium 138 mmol/L (136-145)
--- NOTE | 2022-06-23 11:16 | PC.SOCIAL ---
IMM updated Updated pt's son on IMM. No questions voiced. Provided pt a copy. Initialed, dated, & timed a copy in chart.
[2022-06-23 13:27] LABS: SARS Covid-2 Antigen negative (Negative)
--- NOTE | 2022-06-23 16:40 | P.DS_ITS ---
Discharge Providers Date of Admission: 06/16/22 20:10 Date of Discharge: June 23, 2022 Attending Provider at Admission: Dilan Severino MD Attending Provider at Discharge: Gabo Crawford Primary Care Provider: SARAH Peacock Reason for Visit Reason for Visit: FALL Hospital Course Hospital Course 81-year-old lady with history of dementia, paranoid schizophrenia, CAD, atrial fibrillation, PPM, on chronic anticoagulation with warfarin, as well as CKD stage III, and a number of additional comorbidities was admitted on 07/14 presenting after a fall, very hard of hearing, history could not be obtained from records to be obtained through chart review and discussion with her son. She has had recurrent falls, and has had progressive decline with poor oral intake, gradually getting weaker. Had episodes of worsening dyspnea on presentation which has been progressively worse over the previous 2 weeks especially with lying down and exertion. Chest x-ray on presentation with mild pulmonary vascular congestion. Head CT without acute intracranial abnormality. CT C-spine without acute osseous abnormality. CT abdomen pelvis with new marked bladder wall thickening with haziness of prior vesicular fat suspicious for cystitis. Stable mild liver cirrhosis. Stable marked cardiomegaly with moderate pericardial effusion. Stable his infiltrates in the lung base which may be due to pulmonary vascular congestion or pneumonia. Presentation weakness and fall were thought to be related to acute diastolic congestive heart failure, acute cystitis and JESSICA on CKD. Possibly also pneumonia. She was started on treatment with IV diuretics, subsequently complicated by worsening acute kidney injury, diuretics were de-escalated with improvement in renal function, creatinine has come down to 1.2 which is within her baseline. Echocardiogram showed normal ejection fraction, mild LVH, no regional wall motion abnormality. Moderate biatrial enlargement. Thickened aortic valve, moderate aortic valve calcification. Mild to moderate AVR. Moderate to severe TVR. Moderate pulmonary hypertension. Estimated pulmonary peak systolic pressure 57 mmHg. Grade 1 mitral valve prolapse. Trivial pericardial effusion. She additionally was treated with antibiotics with ceftriaxone, subsequently with meropenem and vancomycin with concern for ESBL infection for UTI and pneumonia. Atrial fibrillation remained rate controlled. On presentation with supratherapeutic INR of around 4, initially Coumadin was held. INR improved. She was clinically improving. Weaned down off oxygen to room air. Completed antibiotic course for pneumonia and UTI. Urine eventually grew Klebsiella resistant only to ampicillin, intermediate sensitivity to nitrofurantoin. MRSA PCR was negative, urine bacterial antigens were negative. Blood culture negative. Despite clinical improvement and treatment of underlying conditions she was having residual episodes of agitation for which he was started on antipsychotic medication, continued on quetiapine, with addition of olanzapine nightly. Agitation has improved, however, she also continually is refusing medical care. Has not been taking her medications. Refusing evaluations. States does not want to be in any hospital. She does have underlying dementia. Her decisional capacity certainly is under question, her, per discussion with her family, her son this would be consistent with her overall goals of care. She would rather prefer not to receive further aggressive intervention. Her CODE STATUS was well-known to be AMD per discussion with her son. He is agreeable that she likely would not want to return to the hospital as I am getting from her as well. Discussed consideration of addition of hospice care which would be appropriate otherwise possibly initiation of comfort measures if needed at the long term. Further discussions and arrangements will be taking place at the long term. Physical Exam Narrative: Does not want to be evaluated. States you go on now . I do not want to be in any more hospitals, although I have been in plenty . Urinary Catheter Management: Dill Latex: Cath Placed During This Visit: yes Reason for Continuing Indwelling Catheter: Accurate Measurement of Urinary Output in Critically Ill Patients Urinary Catheter Date of Insertion: 06/16/22 Urinary Catheter Time of Insertion: 23:39 Discharge Data Studies Completed and Pending Completed Studies During Hospitalization Category Date Time Status CT abdomen pelvis wo con [id number] Stat Cat Scan 06/16/22 17:[address] cervical spin wo con* [id number] Stat Cat Scan 06/16/22 17:[address] head wo con* [id number] Stat Cat Scan 06/16/22 17:33 Completed XR chest 1V portable [id number] Stat Exams 06/16/22 17:33 Completed CV. echo complete* [id number] Routine Ultrasound 06/17/22 22:57 Completed Radiology Impressions Cervical Spine CT 06/16/22 17:30 IMPRESSION: No acute osseous injury. Chest X-Ray 06/16/22 17:33 IMPRESSION: Mild pulmonary vascular congestion. Head CT 06/16/22 17:33 IMPRESSION: No acute intracranial abnormality. Abdomen/Pelvis CT 06/16/22 17:34 IMPRESSION: 1. New marked bladder wall thickening with haziness of the perivesicular fat suspicious for cystitis. 2. Stable mild liver cirrhosis. 3. Stable marked cardiomegaly with moderate pericardial effusion. Stable hazy infiltrates in the lung bases which may be due to pulmonary vascular congestion or pneumonia. Laboratory Results WBC 9.8 10^3/uL (4.0-10.0) 06/20/22 10:07 RBC 5.10 10^6/uL (4.1-5.3) 06/20/22 10:07 Hgb 15.4 g/dL (11.5-15.3) H 06/20/22 10:07 Hct 47.0 % (37.0-47.0) 06/20/22 10:07 MCV 92.2 fl (81-99) 06/20/22 10:07 MCH 30.2 pg (28.0-34.0) 06/20/22 10:07 MCHC 32.8 g/dL (30.0-36.0) 06/20/22 10:07 RDW 14.6 % (12.1-15.1) 06/20/22 10:07 Plt Count 222 10^3/cmm (130-400) 06/20/22 10:07 MPV 10.9 fL (7.4-10.4) H 06/20/22 10:07 Neut % (Auto) 67.7 % 06/20/22 10:07 Lymph % (Auto) 20.0 % 06/20/22 10:07 [place] % (Auto) 8.2 % 06/20/22 10:07 Eos % (Auto) 1.0 % 06/20/22 10:07 Baso % (Auto) 0.7 % 06/20/22 10:07 Neut # (Auto) 6.64 10^3/uL (1.8-7.7) 06/20/22 10:07 Lymph # (Auto) 2.0 10^3/uL (0.8-4.8) 06/20/22 10:07 [place] # (Auto) 0.8 10^3/uL (0.2-0.9) 06/20/22 10:07 Eos # (Auto) 0.1 10^3/uL (0.0-0.8) 06/20/22 10:07 Baso # (Auto) 0.1 10^3/uL (0.0-0.1) 06/20/22 10:07 Nucleated RBC % (auto) 0 % 06/20/22 10:07 Nucleated RBCs # 0.0 /100WBC 06/20/22 10:07 PT 20.70 SECONDS (12.1-14.9) H 06/23/22 05:21 INR 1.71 (0.8-1.2) H 06/23/22 05:21 Sodium 138 mmol/L (136-145) 06/23/22 05:21 Potassium 3.5 mmol/L (3.5-5.1) 06/23/22 05:21 Chloride 96 mmol/L (98-107) L 06/23/22 05:21 Carbon Dioxide 29 mmol/L (22-29) 06/23/22 05:21 Anion Gap 16.5 (5-19) 06/23/22 05:21 BUN 51 mg/dL (8-23) H 06/23/22 05:21 Creatinine 1.2 mg/dL (0.5-0.9) H 06/23/22 05:21 GFR Calculation Not Reportable 06/23/22 05:21 Glucose 108 mg/dL (65-115) 06/23/22 05:21 Estimat Average Glucose 137 06/17/22 05:02 Hemoglobin A1c 6.4 % (4.0-6.0) H 06/17/22 05:02 Calculated Osmolality 300 mOsm/kg (285-295) H 06/23/22 05:21 Calcium 10.0 mg/dL (8.5-10.5) 06/23/22 05:21 Phosphorus 2.6 mg/dL (2.5-4.5) 06/20/22 10:07 Magnesium 2.1 mg/dL (1.7-2.3) 06/20/22 10:07 Iron 45 ug/dL (37-145) 06/16/22 23:48 TIBC 173 mcg/dl 06/16/22 23:48 % Saturation 26.0 % (20-50) 06/16/22 23:48 Unsat Iron Binding 128 ug/dL (112-347) 06/16/22 23:48 Total Bilirubin 0.9 mg/dL (0.15-1.2) 06/20/22 10:07 AST 131 U/L (0-32) H 06/20/22 10:07 ALT 135 U/L (0-33) H 06/20/22 10:07 Alkaline Phosphatase 103 U/L (35-105) 06/20/22 10:07 Ammonia 32 umol/L (11-51) 06/22/22 17:15 C-Reactive Protein 43.5 mg/L (0.0-4.9) H 06/20/22 10:07 NT-Pro-B Natriuret Pep 8037 pg/mL (0-450) H 06/20/22 10:07 Total Protein 6.4 g/dL (6.6-8.7) L 06/20/22 10:07 Albumin 3.1 g/dL (3.5-5.2) L 06/20/22 10:07 Globulin 3.3 g/dL (1.3-4.6) 06/20/22 10:07 Triglycerides 126 mg/dL (0-150) 06/17/22 05:02 Cholesterol 126 mg/dL (0-200) 06/17/22 05:02 LDL Cholesterol, Calc 64 mg/dL (50-129) 06/17/22 05:02 Total VLDL Cholesterol 25 mg/dL (0-30) 06/17/22 05:02 HDL Cholesterol 37 mg/dL (60-100) L 06/17/22 05:02 Cholesterol/HDL Ratio 3.41 mg/dL (0.0-4.40) 06/17/22 05:02 Lipase 12 U/L (13-60) L 06/16/22 18:40 Vitamin B12 878 pg/mL (232-1245) 06/16/22 23:48 Folate > 20.0 ng/mL (4.8-37.3) 06/16/22 23:48 Procalcitonin 0.11 ng/mL (0-0.5) 06/20/22 10:07 Procalcitonin 0.11 ng/mL (0-0.5) 06/20/22 10:07 TSH 3.80 uIU/mL (0.27-4.20) 06/16/22 23:48 Urine Color Yellow (Yellow) 06/16/22 18:58 Urine Appearance Hazy (CLEAR) A 06/16/22 18:58 Urine pH 5 (5-7) 06/16/22 18:58 Ur Specific [place] 1.010 (1.005-1.030) 06/16/22 18:58 Urine Protein 1+ (Negative) H 06/16/22 18:58 Urine Glucose (UA) Norm (Normal) 06/16/22 18:58 Urine Ketones Negative (Negative) 06/16/22 18:58 Urine Blood 3+ (Negative) H 06/16/22 18:58 Urine Nitrate Positive (Negative) H 06/16/22 18:58 Urine Bilirubin Neg (Negative) 06/16/22 18:58 Urine Urobilinogen Neg mg/dL (Negative) 06/16/22 18:58 Ur Leukocyte Esterase 1+ (Negative) H 06/16/22 18:58 Urine RBC 5-10 /hpf (0-2) H 06/16/22 18:58 Urine WBC 25-40 /hpf (0-5) H 06/16/22 18:58 Ur Eosinophil Smear 0 (0-0) 06/16/22 23:32 Ur Squamous Epith Cells Rare /hpf (0-5) 06/16/22 18:58 Amorphous Sediment Not Reportable 06/16/22 18:58 Urine Bacteria 2+ /hpf (NONE) H 06/16/22 18:58 Urine Eosinophils No eosinophils seen 06/16/22 23:32 Ur Random Sodium 43 mmol/L 06/16/22 23:32 Ur Random Potassium 72 mmol/L 06/16/22 23:32 Ur Random Chloride 86 mmol/L 06/16/22 23:32 Urine Creatinine 41 mg/dL (28-217) 06/16/22 23:32 SARS-CoV-2 Ag (Rapid) negative (Negative) 06/23/22 12:54 Vitals Last Vital Signs Temp 97.8 F 06/23/22 04:41 Pulse 86 06/23/22 04:41 Resp 18 06/23/22 04:41 BP 145/85 06/23/22 04:41 Pulse Ox 96 06/23/22 04:41 O2 Del Method 06/23/22 08:00 O2 Flow Rate 2 06/23/22 08:00 Discharge Plan Discharge Patient Disposition: Xfer SNF Condition: Fair Prescriptions: New olanzapine 5 mg Tablet 7.5 mg PO BEDTIME Qty: 45 0RF Continued nitroglycerin [Nitrostat] 0.4 mg tablet, sublingual 0.4 mg SUBLINGUAL Q5M PRN (Reason: Chest Pain) Rx Instructions: do not exceed 3 doses per episode multivitamin Tablet 1 tab PO QAM quetiapine 25 mg tablet 25 mg PO BEDTIME pantoprazole 20 mg tablet,delayed release (DR/EC) 20 mg PO BEDTIME triamcinolone acetonide 0.025 % cream 1 applic topical TID potassium chloride 20 mEq tablet extended release 20 meq PO BID Qty: 135 3RF ferrous sulfate [iron] 325 mg (65 mg iron) Tablet 325 mg PO QAM carvedilol 25 mg tablet 25 mg PO BID diltiazem HCl 240 mg capsule,extended release 24hr 240 mg PO QPM lisinopril 20 mg tablet 20 mg PO BID lovastatin 40 mg tablet 80 mg PO BEDTIME tramadol 50 mg tablet 50 mg PO Q6H PRN (Reason: Pain) isosorbide mononitrate 60 mg tablet extended release 24 hr 60 mg PO DAILY@12 warfarin 5 mg tablet See Rx Instructions .ROUTE .COMPLEX Rx Instructions: 1/2 tab (2.5mg) po daily @12:00 except on sundays takes 1 tab (5mg) daily @12:00 gabapentin 300 mg capsule 300 mg PO BEDTIME albuterol sulfate [Ventolin HFA] 90 mcg/actuation HFA aerosol inhaler 2 puff inhalation Q6H PRN (Reason: Shortness Of Breath) Changed furosemide 40 mg tablet 40 mg PO BID PRN (Reason: Edema) Qty: 30 0RF Discontinued alprazolam 0.25 mg tablet 12.5 mg PO BEDTIME PRN (Reason: Sleep) Discharge Orders: Discharge Order (Routine); Ordered 06/23/22 Ordered By: Gabo Crawford Referrals: [facility] [Outside] Christianson,SARAH Steward [Primary Care Provider] - 4-7 days Discharge Diet: As Directed Patient Instructions: Opioid Safety Activity Restrictions/Additional Instructions: Continue renal, Cardiac diet. Continue oxygen as needed 2 L/min, target saturation 92%. Continue to revisit goals of care with patient and family. She states she does not want to be in the hospital. Given her goals of care discussion with family likely would not want to return to the hospital. Consider addition of hospice care. Reassess oxygenation, volume status with CHF. Recovery from pneumonia and UTI. Assess atrial fibrillation. Reassess INR in 3 days and then twice weekly, although she has not been wanting to take her medications including warfarin. Reassess renal function, potassium, required potassium supplementation in the hospital. Discharge Attestations Time Spent in Discharge Care*: greater than 30 min Quality Metrics Clinical Quality Measures [ No reported AMI, CVA or VTE this stay] Coding Level of Care Code Acute Code for Yessi Herrera
== END 2022-06-23 16:25 | disposition skilled nursing facility (03) | DRG 291 ==
LOC: ER 20:25 → MEDSURG 21:15
PROVIDERS: Family Medicine; Admitting Provider Student in an Organized Health Care Education/Training Program; Emergency Provider Emergency Medicine; PCP Nurse Practitioner Family; Visit Provider Internal Medicine
DX: I13.0 Hypertensive heart and chronic kidney disease with heart failure and stage 1 through stage 4 chronic kidney disease, or unspecified chronic kidney disease (principal); I50.33 Acute on chronic diastolic (congestive) heart failure; J18.9 Pneumonia, unspecified organism; N30.00 Acute cystitis without hematuria; I48.11 Longstanding persistent atrial fibrillation; N17.9 Acute kidney failure, unspecified; F03.911 Unspecified dementia, unspecified severity, with agitation; F05 Delirium due to known physiological condition; G93.49 Other encephalopathy; F20.0 Paranoid schizophrenia; Z16.11 Resistance to penicillins; N18.30 Chronic kidney disease, stage 3 unspecified; I25.10 Atherosclerotic heart disease of native coronary artery without angina pectoris; B96.1 Klebsiella pneumoniae [K. pneumoniae] as the cause of diseases classified elsewhere; R53.1 Weakness; W18.30XA Fall on same level, unspecified, initial encounter; Y92.019 Unspecified place in single-family (private) house as the place of occurrence of the external cause; E87.5 Hyperkalemia; E03.9 Hypothyroidism, unspecified; E78.5 Hyperlipidemia, unspecified; R29.6 Repeated falls; R06.02 Shortness of breath; R79.1 Abnormal coagulation profile; E87.6 Hypokalemia; H91.90 Unspecified hearing loss, unspecified ear; G62.9 Polyneuropathy, unspecified; K74.60 Unspecified cirrhosis of liver; Z95.0 Presence of cardiac pacemaker; Z79.01 Long term (current) use of anticoagulants; Z66 Do not resuscitate
CPT/HCPCS: 36415; 51702; 70450; 71045; 71250; 72125; 74176; 80048; 80053; 80061; 81001; 82140; 82436; 82570; 82607; 82746; 83036; 83540; 83550; 83605; 83690; 83735; 83880; 84100; 84133; 84145; 84300; 84443; 85025; 85610; 85999; 86140; 86403; 87040; 87077; 87086; 87186; 87426; 87449; 87641; 93005; 93306; 94664; 96365; 96372; 96375; 97161; 97530; 99285; J0456; J0696; J1630; J1815; J1940; J2060; J2185; J3480; J3486; J3490; J7030; J7050